=== PATIENT | male | born 1945 | race Caucasian/White ===

== ENCOUNTER 2017-12-11 00:51 | Inpatient (IN) | payer OTHER ==
[~2017-12-11] VITALS: Ht 182.9 cm; Wt 89.0 kg
[~2017-12-11 00:51] MED LIST: FERROUS SULFAT325 M3 PO; IRON PO; LEXAPRO10 M1 PO
--- NOTE | 2017-12-11 15:36 | Operative Report ---
Operative/Inv Procedure Report Surgery Date: 12/11/17 Name of Procedure: Laparoscopic converted to open right hemicolectomy with en bloc resection of locally advanced right colon cancer Pre-Operative Diagnosis: Colon cancer Post-Operative Diagnosis: Same Estimated Blood Loss: less than 50ml Surgeon/Senior Information Security Architect: Shaw MURDOCK,Bull Pabon/Beth MARTIN Anesthesia: general endotracheal tube Specimens: Right colon and associated mesenteric metastases Operative Indication: 72-year-old male with symptomatic anemia is found to have large cecal colon cancer. Preoperative CT scan shows no evidence of distant metastases although there is concern of local regional lymphadenopathy. He presents for resection after cardiac clearance Operative/Procedure Note Note: After consent is brought to the operative laid supine. Gen. anesthesia was obtained and his abdomen was prepped and draped. The skin above the umbilicus was after local anesthesia a curvilinear incision made sharply. We dissected down to the fascia and incised it sharply. Stay sutures were placed and a blunt Agudelo port was placed. No peritoneum was achieved. A 5 mm port was placed in the suprapubic region, a 5 mm port was placed in the left mid abdomen, and a 12 mm dilating port was placed in the epigastric area. The abdomen was explored. We reflected the transverse colon towards the head. There was a large cecal mass with puckering of the wall. There was diffuse infiltration of the ileocecal pedicle with obvious metastatic foci on the peritoneal surface. Proceeded to evacuate the small bowel into the left abdomen. A line of transection along the ileocecal to call was then created with cautery. The dissection was very difficult and the mesentery quite fibrotic and unable to be grasped. Furthermore high on the pedicle the tissues were so fairly fibrotic from what appeared to be a desmoplastic reaction. I could not identify the duodenum either. Given the difficulty with this visualization and dissection I elected to convert to an open operation such that proper oncologic resection could be performed. A midline incision was made in the epigastric region through the 12 mL port sites. The fascia was incised with cautery and Bookwalter retraction system employed. The dissection was still quite difficult due to his significant amount of intraperitoneal fat. Eventually we're able to visualize the area. There was a very large cecal mass and what felt like continuous cancer growth into the mesentery. We took down the white line of Toldt with cautery and mobilized the hepatic flexure. This portion was quite difficult due to the high riding flexure. The duodenum was identified and colonic mesentery dissected free from it. We mobilized it all the way to the origin of the SMA artery. We chose a proximal distal sites of transection. The small bowel and transverse colon were divided with the BEST stapler. The mesentery was taken with LigaSure device. There were 2 pedicles. We took the right colonic branch first as it was much more supple. This was done with 0 silk suture. The ileo colic pedicle was much more difficult. Teased through the fibrotic tissue until we got to what appeared to be the artery and vein. It was then divided between clamps and the specimen passed off the field. The pedicle was suture ligated with 0 silk suture. There was some oozing around the pedicle from the fibrous tissue. It was controlled with direct pressure and FloSeal. Perineal cavity isn't irrigated normal saline. An ileocolonic anastomosis was then created. The bowel was lined up with 3-0 silk sutures and enterotomies performed. Itme-oo-reee anastomosis was then created through the tinea. Common enterotomy was closed with reload of the stapler. 3-0 silk was placed in the crotch of the anastomosis. It was inspected and anastomosis can intact. Omentum was then placed back over the bowel and the peritoneal cavity irrigated. Of note there is no evidence of carcinomatosis or previously unrecognized hepatic metastases. The fascia was closed with 0 Maxon suture. Skin was closed with taisha. Sterile dressings were applied sponge and needle counts are correct. CC: Maggie MURDOCK,Jay Jo; Grady Poe MD, MD,Jay Santos
--- NOTE | 2017-12-11 15:43 | Admission Core Measures ---
Acute Coronary Syndrome (CM) ACS Core Measures Acute Coronary Syndrome Diagnosis No Congestive Heart Failure (NEW) CHF Core Measures Congestive Heart Failure Diagnosis No Cerebrovascular Accident (NEW) CVA Core Measures CVA/TIA Diagnosis No Venous Thromboembolism VTE Core Shaan (View Protocol) VTE Risk Factors Surgery No Mechanical VTE Prophylaxis d/t N/A MechProphylax Ordered No VTE Pharm Prophylaxis d/t NA PharmProphylax ordered Problem List As ranked by this Provider includes Assessment & Plan 1. Malignant neoplasm of cecum HOME MEDS Home Med List Escitalopram Oxalate (Lexapro) 10 MG TABLET 1 TAB PO DAILY MENTAL HEALTH ( Reported) [IRON] (Unknown Strength) (Unknown Dose) PO TID SUPPLEMENT (Reported)
[2017-12-11 17:15] VITALS: BP 120/58
--- NOTE | 2017-12-11 19:43 | PN- General Surgery ---
Subjective Subjective: POC feeling well, some abd soreness, no n/v, [place] clears. no oob yet. +uo via benjamin Objective Vital Signs and I&Os Vital Signs Date Time Temp Pulse Resp B/P B/P Pulse O2 O2 Flow FiO2 Mean Ox Delivery Rate 12/11 1715 95 Nasal 3.0L Cannula Physical Exam: gen- nad card- s1s2 rrr pulm- ctab abd- distended, tympanic, mild ttp throughout, +bs, midline dressing w scant serosang staining ext- calves soft nt, alps on bl Assessment/Plan Assessment/Plan A- POD0 sp lap-to-open r hemicolectomy 2/2 locally advanced colon ca, stable w appropriate postop pain, awaiting bowel fxn return. P- benjamin- dc in am if uo appropriate cont ivf, clear liquid diet am labs home meds prn pain meds titrate o2 off oob, ambulate hepsq start tonight, alps ancef/flag x23hr postop will dw attending Core Measures Venous Thromboembolism VTE Risk Factors Surgery No Mechanical VTE Prophylaxis d/t N/A MechProphylax Ordered No VTE Pharm Prophylaxis d/t NA PharmProphylax ordered
[2017-12-11 20:02] VITALS: BP 13/78
[2017-12-11 21:49] VITALS: BP 130/76
[2017-12-12] VITALS (7 sets, daily range): BP systolic 90–130; BP diastolic 48–76
--- NOTE | 2017-12-12 08:17 | PN- General Surgery ---
See Addendum Subjective Subjective: Pt. complains on not sleeping well, could not specyfy why. has "discomfort", rating 7/10. received one dose of Oxycodone, last dose 9 pm last evening. He has no other complaints. Had clears last night, reports burping. Not passing flatus. Objective Vital Signs and I&Os Vital Signs Date Time Temp Pulse Resp B/P B/P Pulse O2 O2 Flow FiO2 Mean Ox Delivery Rate 12/12 0400 97.5 88 20 128/74 95 12/12 0005 97.6 94 20 126/70 94 12/12 0000 98 Nasal 3.0L Cannula 12/11 2149 97.9 98 18 130/76 95 Nasal 3.0L Cannula 12/11 2001 97.9 101 18 13/78 95 Nasal 3.0L Cannula 12/11 1715 97.4 96 18 120/58 95 Nasal 3.0L Cannula 12/11 1715 95 Nasal 3.0L Cannula Intake & Output 12/12 1600 12/12 0800 12/12 0000 12/11 1600 12/11 0800 12/11 0000 Intake Total 1040 1080 Output Total 800 300 Balance 240 780 Intake, IV 800 600 Intake, Oral 240 480 Number 0 Bowel Movements Output, Urine 800 300 Patient 193 lb Weight Weight Reported by Patient Measurement Method Alert, oriented, appropriate, no distress HEENT unremarkable Lungs clear bilat, decreased at bases. Heart regular Abdomen is softly distended, mild tympany on percussion, appropriately tender. Midline incision with dressing, slight;y stained with old blood. Arndt in place with clear, yellow urine in large amounts, 800 cc over night. Extremities without edema. Assessment/Plan Assessment/Plan 72 y o male with hx of colon Ca/ cecal mass, s/p open R hemicolectomy POD#1 Stable hemodynamics, no fevers. Making large amounts of urine. Abdominal exam as expected, mild distention.No evidence of bowel fxn yet, has some burping. Incision without signs of infection. Abdominal pain/" discomfort " this morning, however he was not medicated since last pm. Plan: d/c Arndt ( I spoke with Dr Squires), decrease IVF rate Await advancing diet till has return of bowel fxn. I explained to him to go slow on liquids if continues with burping. I spoke with nurse, she will administer oral oxycodone now. Will follow on labs, pending for this morning. Cont. chemical DVT propyhylaxis Ambulate in hallway, I discussed with pt. importance of early ambulation. Antibiotic completed. Core Measures Venous Thromboembolism VTE Risk Factors Surgery No Mechanical VTE Prophylaxis d/t N/A MechProphylax Ordered No VTE Pharm Prophylaxis d/t NA PharmProphylax ordered
[2017-12-12 08:29] LABS: ABSOLUTE BASOPHIL COUNT 0 /CUMM (0.0-0.2); ABSOLUTE EOSINOPHIL COUNT 0 /CUMM (0.0-0.7); ABSOLUTE LYMPH COUNT 0.6 /CUMM (1.2-3.4); ABSOLUTE MONOCYTE COUNT 0.8 /CUMM (0.10-0.60); BASOPHIL % 0.1 % (0.0-2.0); EOSINOPHIL % 0 % (0-5); HEMATOCRIT 39.7 % (42-52); MEAN CORPUSCULAR HGB 29.9 PG (27.0-31.0); MEAN CORPUSCULAR HGB CONC 33.2 G/DL (33.0-37.0); MEAN CORPUSCULAR VOLUME 89.9 FL (80.0-94.0); MEAN PLATELET VOLUME 8.1 FL (7.4-10.4); PLATELET COUNT 269 /CUMM (130-400); RBC DISTRIBUTION WIDTH 25.6 % (11.5-14.5); RED BLOOD CELL CT 4.42 /CUMM (4.70-6.10); WHITE BLOOD CELL COUNT 9.4 /CUMM (4.8-10.8)
[2017-12-12 09:28] LABS: GRANULOCYTE % 85.3 % (42.2-75.2)
[2017-12-13 06:48] VITALS: BP 136/72
--- NOTE | 2017-12-13 07:58 | PN- General Surgery ---
See Addendum Subjective Subjective: Overnight, patient had low urine output, recieved 500 cc bolus an urinated 300 ccs. Patient denies any further episodes of nausea or vomiting. Tolerating clears. Reports drinking 3 beers/night. Denies passing flatus or moving his bowels. He reports vicki-incisional pain, which is improved with Morphine. He reports ambulating yesterday and using his incentive spirometry. Offers no other complaints. Objective Vital Signs and I&Os Vital Signs Date Time Temp Pulse Resp B/P B/P Pulse O2 O2 Flow FiO2 Mean Ox Delivery Rate 12/13 0648 97.9 89 20 136/72 91 12/13 0000 94 Nasal 3.0L Cannula 12/12 2148 97.9 88 21 122/76 94 Nasal 3.0L Cannula 12/12 1600 Nasal 3.0L Cannula 12/12 1600 97.6 88 22 120/70 93 Nasal 3.0L Cannula 12/12 1215 90 124/64 12/12 1204 97.5 90 19 90/48 92 Nasal Cannula 12/12 0811 98.0 90 20 130/70 96 Nasal Cannula Intake & Output 12/13 1600 12/13 0800 12/13 0000 12/12 1600 12/12 0800 12/12 0000 Intake Total 1100 257 567 5711 1080 Output Total 300 300 800 300 Balance 800 100 400 240 780 Intake, IV 1100 600 800 600 Intake, Oral 100 100 240 480 Number 0 Bowel Movements Output, 100 Emesis Output, Urine 300 200 800 300 Patient 193 lb Weight Weight Reported by Patient Measurement Method Physical Exam: Gen - resting comfortably in bed awake an alert eating clears with 2L O2 via nc in nad Cardiac - S1S2 noted, RRR Lungs - fair inspiratory effort, CTAB Abd - softly distended, bowel sounds present, midline dressing mildly saturated, incision closed with taisha healing well with no signs of infection, left quotation clerk, moderately tender vicki-incisionaly, no rebound or guarding noted Ext - no edema or calf tenderness Current Medications: Current Medications Sig/Thai Start time Last Medication Dose Route Stop Time Status Admin Acetaminophen 650 MG Q6P PRN 12/11 1730 AC PO Acetaminophen 1,000 MG Q6P PRN 12/11 173 AC IV Dextrose/Sodium 1,000 ML .Q10H 12/11 1730 DC 12/12 Chloride IV 0351 Escitalopram Oxalate 10 MG DAILY 12/12 0900 DC PO Escitalopram Oxalate 10 MG DAILY 12/12 09 AC 12/12 PO 0753 Heparin Sodium 5,000 UNIT Q8 12/11 2199 AC 12/13 (Porcine) SC 041 Morphine Sulfate 2 MG Q2P PRN 12/11 1729 AC 12/13 IV 041 Ondansetron HCl 4 MG Q6P PRN 12/11 1729 AC IV Oxycodone HCl 5 MG Q4 HRS NEEDED PRN 12/11 1729 AC 12/11 PO 2055 Oxycodone HCl 10 MG Q4P PRN 12/11 1729 AC 12/12 PO 193 Potassium Chloride 20 MEQ Q13H 12/12 0830 AC 12/13 Sodium Chloride 1,000 ML IV 0000 Sodium Chloride 500 ML BOLUS ONE 12/13 0015 DC 12/13 IV 12/13 0114 0046 Results Last 48 Hours of Labs: Laboratory Tests 12/13 12/12 0633 0635 Chemistry Sodium (137 - 145 mmol/L) Pending 133 L Potassium (3.5 - 5.1 mmol/L) Pending 4.6 Chloride (98 - 107 mmol/L) Pending 101 Carbon Dioxide (22 - 30 mmol/L) Pending 23 Anion Gap (5 - 16) Pending 9 BUN (9 - 20 mg/dL) Pending 12 Creatinine (0.7 - 1.2 mg/dL) Pending 0.9 Estimated GFR (>60 ml/min) > 60 BUN/Creatinine Ratio (7 - 25 %) Pending 13.3 Magnesium Pending Hematology CBC w Diff NO MAN DIFF REQ WBC (4.8 - 10.8 /CUMM) 9.4 RBC (4.70 - 6.10 /CUMM) 4.42 L Hgb (14.0 - 18.0 G/DL) 13.2 L Hct (42 - 52 %) 39.7 L MCV (80.0 - 94.0 FL) 89.9 MCH (27.0 - 31.0 PG) 29.9 MCHC (33.0 - 37.0 G/DL) 33.2 RDW (11.5 - 14.5 %) 25.6 H Plt Count (130 - 400 /CUMM) 269 MPV (7.4 - 10.4 FL) 8.1 Gran % (42.2 - 75.2 %) 85.3 H Lymphocytes % (20.5 - 51.1 %) 6.3 L Monocytes % (1.7 - 9.3 %) 8.3 Eosinophils % (0 - 5 %) 0 Basophils % (0.0 - 2.0 %) 0.1 Absolute Granulocytes (1.4 - 6.5 /CUMM) 8.0 H Absolute Lymphocytes (1.2 - 3.4 /CUMM) 0.6 L Absolute Monocytes (0.10 - 0.60 /CUMM) 0.8 H Absolute Eosinophils (0.0 - 0.7 /CUMM) 0 Absolute Basophils (0.0 - 0.2 /CUMM) 0 Assessment/Plan Assessment/Plan 72 M who is POD 2 s/p lap converted to open R hemicolectomy secondary to colon ca, tolerating clears, awaiting return of bowel function Await advancing diet till has return of bowel function Cont pain regimen Home med on board DVT ppx on board Wean O2 CIWA Follow up chirag valdez Encourage ambulation, IS Will d/w Dr. Squires Core Measures Venous Thromboembolism VTE Risk Factors Surgery No Mechanical VTE Prophylaxis d/t N/A MechProphylax Ordered No VTE Pharm Prophylaxis d/t NA PharmProphylax ordered
[2017-12-13 14:00] VITALS: BP 130/64
[2017-12-13 14:13] VITALS: BP 130/64
[2017-12-13 21:25] VITALS: BP 102/70
[2017-12-14 06:00] VITALS: BP 108/78
[2017-12-14 08:14] LABS: ABSOLUTE BASOPHIL COUNT 0 /CUMM (0.0-0.2); ABSOLUTE EOSINOPHIL COUNT 0 /CUMM (0.0-0.7); ABSOLUTE GRANULOCYTE CT 5.7 /CUMM (1.4-6.5); ABSOLUTE LYMPH COUNT 0.7 /CUMM (1.2-3.4); ABSOLUTE MONOCYTE COUNT 0.6 /CUMM (0.10-0.60); BASOPHIL % 0.3 % (0.0-2.0); EOSINOPHIL % 0.3 % (0-5); GRANULOCYTE % 81.3 % (42.2-75.2); MEAN CORPUSCULAR HGB 29.7 PG (27.0-31.0); MEAN CORPUSCULAR HGB CONC 33.4 G/DL (33.0-37.0); MEAN CORPUSCULAR VOLUME 88.8 FL (80.0-94.0); MEAN PLATELET VOLUME 8.3 FL (7.4-10.4); PLATELET COUNT 260 /CUMM (130-400); RBC DISTRIBUTION WIDTH 24.2 % (11.5-14.5); RED BLOOD CELL CT 3.94 /CUMM (4.70-6.10)
--- NOTE | 2017-12-14 09:19 | PN- General Surgery ---
See Addendum Subjective Subjective: Patient reports abdominal soreness is uncontrolled with oxycodone, states he it upsets his stomach. He does not have much of an appetite today and barely touched his clears this morning. He denies passing flatus or moving his bowels and states he ambulated in the shepard twice today with the RW. Objective Vital Signs and I&Os Vital Signs Date Time Temp Pulse Resp B/P B/P Pulse O2 O2 Flow FiO2 Mean Ox Delivery Rate 12/14 0600 98.1 88 22 108/78 90 Nasal 2.0L Cannula 12/14 0000 Nasal 2.0L Cannula 12/13 2125 98.5 91 20 102/70 90 12/13 1600 94 Nasal 2.0L Cannula 12/13 1413 98.2 89 20 130/64 93 Nasal Cannula 12/13 1400 90 18 130/64 Intake & Output 12/14 1600 12/14 0800 12/14 0000 12/13 1600 12/13 0800 12/13 0000 Intake Total 1360 1070 1280 1100 100 Output Total 800 400 400 300 Balance 560 670 880 800 100 Intake, IV 1000 536 161 7473 Intake, Oral 360 720 480 100 Output, Urine 800 400 400 300 Patient 192 lb Weight Physical Exam: Gen - resting comfortably in bed awake an alert eating clears with 2L O2 via nc in nad Cardiac - S1S2 noted, RRR Lungs - fair inspiratory effort, faint crackles at left base, upper lung dunn clear Abd - tense and moderately distended, tympanic, faint bs present, midline incision closed with taisha healing well with no signs of infection, tender vicki-incisionaly, less than yesterday, no signs of peritonitis Ext - no edema or calf tenderness Current Medications: Current Medications Sig/Thai Start time Last Medication Dose Route Stop Time Status Admin Acetaminophen 650 MG Q6P PRN 12/11 1730 AC 12/14 PO 0858 Acetaminophen 1,000 MG Q6P PRN 12/11 1730 AC IV Dextrose/Sodium 1,000 ML Q8H 12/13 2030 AC 12/14 Chloride IV 0453 Dextrose/Sodium 1,000 ML Q10H 12/13 0915 DC 12/13 Chloride IV 0928 Escitalopram Oxalate 10 MG DAILY 12/12 0900 AC 12/14 PO 0851 Heparin Sodium 5,000 UNIT Q8 12/11 2200 AC 12/14 (Porcine) SC 0453 Lorazepam 0 Q1P PRN 12/13 0815 AC IV Morphine Sulfate 2 MG Q2P PRN 12/11 1730 AC 12/14 IV 0453 Ondansetron HCl 4 MG Q6P PRN 12/11 1730 AC IV Oxycodone HCl 5 MG Q4 HRS NEEDED PRN 12/11 1730 AC 12/11 PO 2056 Oxycodone HCl 10 MG Q4P PRN 12/11 173 AC 12/14 PO 0102 Patient Medication 1 ED ONE ONE 12/13 1730 TX Teaching ED 12/13 1731 Results Last 48 Hours of Labs: Laboratory Tests 12/14 12/13 12/13 0644 0924 0633 Chemistry Sodium (137 - 145 mmol/L) Pending 135 L Potassium (3.5 - 5.1 mmol/L) Pending 4.8 Chloride (98 - 107 mmol/L) Pending 103 Carbon Dioxide (22 - 30 mmol/L) Pending 23 Anion Gap (5 - 16) Pending 9 BUN (9 - 20 mg/dL) Pending 18 19 Creatinine (0.7 - 1.2 mg/dL) Pending 1.5 H 1.5 H Estimated GFR (>60 ml/min) 46 L 46 L BUN/Creatinine Ratio (7 - 25 %) Pending 12.0 12.7 Magnesium (1.6 - 2.3 mg/dL) 1.7 Hematology CBC w Diff Pending WBC Pending RBC Pending Hgb Pending Hct Pending MCV Pending MCH Pending MCHC Pending RDW Pending Plt Count Pending MPV Pending Assessment/Plan Assessment/Plan 72 M who is POD 3 s/p lap converted to open R hemicolectomy secondary to colon ca with decreased appetite, inadequate pain control, JENNYFER resolved, awaiting return of bowel function Keep NPO on IVF Pain regimen, add IV Tylenol Multiview axr Home med on board DVT ppx - hsq Wean O2, encourage IS CIWA Encourage ambulation D/w Dr. Squires Core Measures Venous Thromboembolism VTE Risk Factors Surgery No Mechanical VTE Prophylaxis d/t N/A MechProphylax Ordered No VTE Pharm Prophylaxis d/t NA PharmProphylax ordered
--- NOTE | 2017-12-14 11:50 | RADIOLOGY REPORT ---
EXAMINATION: XR ABDOMEN MULTIPLE VIEWS CLINICAL INDICATION: History of colon carcinoma status post right hemicolectomy. Evaluate for ileus or small bowel obstruction. COMPARISON: CT abdomen and pelvis 11/13/2017. TECHNIQUE: 2 views of the abdomen. FINDINGS: The stomach and proximal small bowel is distended with gas. There is a paucity of gas within the colon. Findings may represent a manifestation of small bowel obstruction or ileus. Grossly no free intraperitoneal air. No acute osseous finding. IMPRESSION: The stomach and proximal small bowel is diffusely distended with gas. Findings may represent a manifestation of ileus or obstruction.
[2017-12-14 15:18] VITALS: BP 115/63
[2017-12-14 22:29] VITALS: BP 110/54
--- NOTE | 2017-12-15 00:53 | RADIOLOGY REPORT ---
EXAMINATION: XR PORTABLE CHEST CLINICAL INFORMATION: Ileus, confirm NG tube placement COMPARISON: Abdominal radiograph 12/14/2017 TECHNIQUE: Portable frontal view of the chest was obtained. FINDINGS: Nasogastric tube courses into the stomach. The lungs are hypoinflated, which limits evaluation. A component of atelectasis is suspected at the lung bases. No evidence of pneumothorax. Trace pleural effusions are difficult to exclude in the setting of low lung volumes. No overt pulmonary edema. Cardiac size appears grossly within normal limits. There is atherosclerotic calcification along the aorta. No acute osseous findings are seen. There are redemonstrated gaseous distended loops of bowel in the upper abdomen. IMPRESSION: Nasogastric tube courses into the stomach. Low lung volumes with suspected bibasilar atelectasis.
[2017-12-15 06:07] VITALS: BP 140/60
--- NOTE | 2017-12-15 06:49 | PN- General Surgery ---
Subjective Subjective: Patient seen and evaluated. Overnight he became nauseous and vomited. Therefor, NGT was placed and had immediate return of 2,500 mL dark brown liquid. After this patient reports feeling better and states his stomach is less distended. Reports small amount of flatus yesterday, however denies any since then. No BM. He is ambulating with some expected soreness and with RW. Voiding without difficulty. Otherwise, denies cp, sob, n/v/d now, f/c/s. Objective Vital Signs and I&Os Vital Signs Date Time Temp Pulse Resp B/P B/P Pulse O2 O2 Flow FiO2 Mean Ox Delivery Rate 12/15 0607 99.1 100 23 140/60 93 12/15 0000 Nasal 3.0L Cannula 12/14 2229 98.7 92 20 110/54 90 Nasal 2.0L Cannula 12/14 1518 97.6 94 18 115/63 98 Nasal 2.0L Cannula 12/14 0800 Nasal 2.0L Cannula Intake & Output 12/15 0800 12/15 0000 12/14 1600 12/14 0800 12/14 0000 12/13 1600 Intake Total 5643 147 0257 1360 1070 1280 Output Total 2900 500 800 400 400 Balance -1900 -5 1900 560 670 880 Intake, IV 3342 522 7230 1000 350 800 Intake, Oral 120 900 360 720 480 Number 0 Bowel Movements Output, 2500 Gastric Drainage Output, Urine 400 500 800 400 400 Patient 192 lb Weight Physical Exam: Gen - laying in bed with head elivated to 30, answering qustions, 2L 02 via NC, NAD Cardiac - S1S2 noted, RRR Lungs - fair inspiratory effort, faint crackles at left base, upper lung dunn clear Abd - moderately distended and tympanic, occasional bs presents, midline incision is well approximated with taisha with no signs of drainage, mild vicki- incisional tenderness, abdomen is tense Ext: no edema, no calf tenderness Current Medications: Current Medications Sig/Thai Start time Last Medication Dose Route Stop Time Status Admin Acetaminophen 650 MG .STK-MED ONE 12/14 0857 DC PO 12/14 08 Acetaminophen 650 MG Q6P PRN 12/11 173 DC 12/14 PO 08 Acetaminophen 1,000 MG Q6P PRN 12/11 173 AC 12/14 IV 203 Dextrose/Sodium 1,000 ML Q8H 12/13 2030 AC 12/15 Chloride IV 0022 Escitalopram Oxalate 10 MG DAILY 12/12 0900 AC 12/14 PO 0851 Heparin Sodium 5,000 UNIT Q8 12/11 2200 AC 12/15 (Porcine) SC 0553 Lorazepam 0 Q1P PRN 12/13 0815 AC 12/15 IV 0021 Morphine Sulfate 2 MG Q2P PRN 12/14 1345 AC 12/14 IV 2356 Morphine Sulfate 2 MG Q2P PRN 12/11 1730 DC 12/14 IV 1303 Ondansetron HCl 4 MG Q6P PRN 12/11 1730 AC 12/14 IV 2237 Oxycodone HCl 5 MG Q4 HRS NEEDED PRN 12/11 1730 DC 12/11 PO 2056 Oxycodone HCl 10 MG Q4P PRN 12/11 1730 DC 12/14 PO 0102 Phenol 2 SPRAY Q2P PRN 12/14 2345 AC EXT Promethazine HCl 12.5 MG ONCE ONE 12/14 2345 DC 12/15 IV 12/14 2346 0003 Results Last 48 Hours of Labs: Laboratory Tests 12/15 12/14 12/13 0650 0644 0924 Chemistry Sodium (137 - 145 mmol/L) Pending 136 L Potassium (3.5 - 5.1 mmol/L) Pending 3.9 Chloride (98 - 107 mmol/L) Pending 104 Carbon Dioxide (22 - 30 mmol/L) Pending 22 Anion Gap (5 - 16) Pending 10 BUN (9 - 20 mg/dL) Pending 13 18 Creatinine (0.7 - 1.2 mg/dL) Pending 1.1 1.5 H Estimated GFR (>60 ml/min) > 60 46 L BUN/Creatinine Ratio (7 - 25 %) Pending 11.8 12.0 Hematology CBC w Diff Pending NO MAN DIFF REQ WBC (4.8 - 10.8 /CUMM) Pending 7.0 RBC (4.70 - 6.10 /CUMM) Pending 3.94 L Hgb (14.0 - 18.0 G/DL) Pending 11.7 L Hct (42 - 52 %) Pending 35.0 L MCV (80.0 - 94.0 FL) Pending 88.8 MCH (27.0 - 31.0 PG) Pending 29.7 MCHC (33.0 - 37.0 G/DL) Pending 33.4 RDW (11.5 - 14.5 %) Pending 24.2 H Plt Count (130 - 400 /CUMM) Pending 260 MPV (7.4 - 10.4 FL) Pending 8.3 Gran % (42.2 - 75.2 %) 81.3 H Lymphocytes % (20.5 - 51.1 %) 9.4 L Monocytes % (1.7 - 9.3 %) 8.7 Eosinophils % (0 - 5 %) 0.3 Basophils % (0.0 - 2.0 %) 0.3 Absolute Granulocytes (1.4 - 6.5 /CUMM) 5.7 Absolute Lymphocytes (1.2 - 3.4 /CUMM) 0.7 L Absolute Monocytes (0.10 - 0.60 /CUMM) 0.6 Absolute Eosinophils (0.0 - 0.7 /CUMM) 0 Absolute Basophils (0.0 - 0.2 /CUMM) 0 Assessment/Plan Assessment/Plan This is a 72 y/o M w/ PMHx of colon ca who is now POD#4 s/p Lap converted to open R hemicolectomy secondary to colon ca. GI: #POD4 Lap converted to open R hemicolectomy #Colon CA - 2,500 mL NGT output overnight -> continue LCWS - monitor and record output - NPO - Abdominal xray from yesterday shows dilated loops of bowel and is likely post op ileus - Zofran PRN CV: - Vitals stable - Monitor vitals per protocol Pulm: - Continuie agressive pulmonary toilet - RT ordered Neuro: - Continue current pain regimen; --- Morphine 2 mg IV q2hr PRN abdominal pain --- IV Tylenol Renal/: - JENNYFER resolved with BUN/CR 13/1.1 - Good UOP w/ 400 mL overnight - F/U morning chemistry - IVFs w/ d5-NS @ 125 mL/ hr ID: - Not on abx - WBC 7 yesterday - Monitor for fevers Heme: - H&H stable yesterday at 11.7/35 - F/U morning cbc - Continue sc heparin Endo: - No active issues Ortho: - PT ordered - Encourage ambulation Psych: - On lexapro, may be given down NG tube with clamping Dispo: - Continue as inpatient. Awaiting return of bowel function and advancment of diet Core Measures Venous Thromboembolism VTE Risk Factors Surgery No Mechanical VTE Prophylaxis d/t N/A MechProphylax Ordered No VTE Pharm Prophylaxis d/t NA PharmProphylax ordered
[2017-12-15 08:35] LABS: ABSOLUTE BASOPHIL COUNT 0 /CUMM (0.0-0.2); ABSOLUTE EOSINOPHIL COUNT 0 /CUMM (0.0-0.7); ABSOLUTE GRANULOCYTE CT 1.2 /CUMM (1.4-6.5); ABSOLUTE LYMPH COUNT 0.2 /CUMM (1.2-3.4); ABSOLUTE MONOCYTE COUNT 0.4 /CUMM (0.10-0.60); BASOPHIL % 0.2 % (0.0-2.0); EOSINOPHIL % 2.6 % (0-5); GRANULOCYTE % 65.7 % (42.2-75.2); HEMATOCRIT 34.9 % (42-52); MEAN CORPUSCULAR HGB 29.8 PG (27.0-31.0); MEAN CORPUSCULAR HGB CONC 33.4 G/DL (33.0-37.0); MEAN CORPUSCULAR VOLUME 89.3 FL (80.0-94.0); MEAN PLATELET VOLUME 8.4 FL (7.4-10.4); PLATELET COUNT 255 /CUMM (130-400)
[2017-12-15 09:23] LABS: WHITE BLOOD CELL COUNT 1.8 /CUMM (4.8-10.8)
[2017-12-15 15:41] VITALS: BP 144/84
[2017-12-15 21:27] VITALS: BP 140/84
[2017-12-16 06:31] VITALS: BP 132/78
--- NOTE | 2017-12-16 07:47 | PN- General Surgery ---
See Addendum Subjective Subjective: Awake, alert Not feeling well but nothing specific. Pain is controlled without much narcotic. Can't sleep and frustrated about his progress. Still feels bloated, no flatus or bm Denies nausea OOB to chair yesterday, didn't ambulate yesterday due to NGT and nausea Objective Vital Signs and I&Os Vital Signs Date Time Temp Pulse Resp B/P B/P Pulse O2 O2 Flow FiO2 Mean Ox Delivery Rate 12/16 630 97.8 85 20 132/78 91 12/16 0000 93 Nasal 2.0L Cannula 12/157 98.6 100 20 140/84 93 Nasal 3.0L Cannula 12/15 1600 Nasal 3.0L Cannula 12/15 1541 98.4 102 20 144/84 93 Nasal Cannula 12/15 0800 Nasal 3.0L Cannula Intake & Output 12/16 0800 12/16 0000 12/15 1600 12/15 0800 12/15 0000 12/14 1600 Intake Total 8147 962 5996 495 1900 Output Total 1300 2300 1450 2900 500 Balance -270 -1865 -1450 -1900 -5 1900 Intake, IV 6895 072 3577 375 1000 Intake, Oral 30 60 120 900 Intake, Other 0 Number 0 0 0 Bowel Movements Output, 1300 1800 1150 2500 Gastric Drainage Output, Urine 500 300 400 500 Physical Exam: vss, afebrile High output from NGT - 1300 cc overnight, dark brown/red thin liquid Good urine output General: alert and oriented times three Chest: clear anteriorly bilaterally, RRR Abd: distended, nontender even to deep palpation, no bowel sounds appreciated Ext: warm, no edema Wd: looks good, taisha intact, no drainage or erythema Assessment/Plan Assessment/Plan 72yo male s/p lap to open right hemicolectomy pod 5 with post op ileus Await bowel function I/O negative - watch urine output, increase IVF if needed follow up labs - pending continue ngt/ivf protonix IV for ppx hep sc for ppx pain management Core Measures Venous Thromboembolism VTE Risk Factors Surgery No Mechanical VTE Prophylaxis d/t N/A MechProphylax Ordered No VTE Pharm Prophylaxis d/t NA PharmProphylax ordered
[2017-12-16 08:00] VITALS: BP 132/78
[2017-12-16 08:48] LABS: ABSOLUTE BASOPHIL COUNT 0 /CUMM (0.0-0.2); ABSOLUTE EOSINOPHIL COUNT 0.1 /CUMM (0.0-0.7); ABSOLUTE LYMPH COUNT 0.7 /CUMM (1.2-3.4); ABSOLUTE MONOCYTE COUNT 0.6 /CUMM (0.10-0.60); BASOPHIL % 0.2 % (0.0-2.0); EOSINOPHIL % 3.6 % (0-5); GRANULOCYTE % 58.9 % (42.2-75.2); HEMATOCRIT 34.8 % (42-52); MEAN CORPUSCULAR HGB 29.4 PG (27.0-31.0); MEAN CORPUSCULAR HGB CONC 32.5 G/DL (33.0-37.0); MEAN CORPUSCULAR VOLUME 90.5 FL (80.0-94.0); MEAN PLATELET VOLUME 8.1 FL (7.4-10.4); PLATELET COUNT 267 /CUMM (130-400); RBC DISTRIBUTION WIDTH 23.9 % (11.5-14.5); RED BLOOD CELL CT 3.85 /CUMM (4.70-6.10)
[2017-12-16 09:04] LABS: WHITE BLOOD CELL COUNT 3.4 /CUMM (4.8-10.8)
[2017-12-16 14:50] VITALS: BP 124/72
[2017-12-16 16:00] VITALS: BP 124/72
[2017-12-16 21:09] VITALS: BP 124/82
[2017-12-17 07:01] VITALS: BP 118/76
--- NOTE | 2017-12-17 07:46 | PN- General Surgery ---
Subjective Subjective: Reports some flatus. No bm yet, but feels like hes holding back at times. He fears having an accident in bed. He is able to get out of bed to commode with assistance. Not ambulating much. Denies dizziness. No shortness of breath. No chest pains. Objective Vital Signs and I&Os Vital Signs Date Time Temp Pulse Resp B/P B/P Pulse O2 O2 Flow FiO2 Mean Ox Delivery Rate 12/17 0701 98.0 76 18 118/76 91 12/17 0000 Nasal 5.0L Cannula 12/16 2109 97.6 84 18 124/82 91 Nasal 5.0L Cannula 12/16 1600 97.2 82 20 124/72 12/16 1600 90 Nasal 3.0L Cannula 12/16 1450 97.2 82 20 124/72 90 Nasal 2.0L Cannula 12/16 0800 97.8 85 20 132/78 12/16 0800 91 Nasal 3.0L Cannula Intake & Output 12/17 0800 12/17 0000 12/16 1600 12/16 0800 12/16 0000 12/15 1600 Intake Total 1000 1000 1030 1030 435 Output Total 1400 2030 700 1300 2300 1450 Balance -400 -1030 330 -270 -1865 -1450 Intake, IV 1000 1000 1000 1000 375 Intake, Oral 30 30 60 Intake, Other 0 Number 0 0 Bowel Movements Output, 1100 5203 058 8805 1800 1150 Gastric Drainage Output, Urine 300 250 300 500 300 Physical Exam: General - alert & oriented x 3. comfortable. no acute distress Chest - clear bilaterally. no w/r/r Cardiac - s1s2. reg. Abdomen - distended. midline incision well approximated with taisha. no erythema or exudates. expected vicki-incisional tenderness. ng tube drained >1 liter bilious fluid overnight. Extremities - warm bilaterally. no c/c/e. calves soft and nontender b/l. athrombics in place. Current Medications: Current Medications Sig/Thai Start time Last Medication Dose Route Stop Time Status Admin Acetaminophen 1,000 MG .STK-MED ONE 12/16 1521 DC IV 12/16 1522 Acetaminophen 1,000 MG Q6P PRN 12/11 1730 AC 12/16 IV 2131 Dextrose/Sodium 1,000 ML Q8H 12/13 2030 AC 12/17 Chloride IV 0511 Escitalopram Oxalate 10 MG DAILY 12/12 0900 AC 12/16 PO 0759 Heparin Sodium 5,000 UNIT Q8 12/11 2200 AC 12/17 (Porcine) SC 0510 Lorazepam 0 Q1P PRN 12/13 0815 AC 12/15 IV 0021 Melatonin 5 MG AT BEDTIME PRN 12/15 2045 AC 12/15 PO 2139 Morphine Sulfate 2 MG Q2P PRN 12/14 1345 AC 12/16 IV 0233 Ondansetron HCl 4 MG Q6P PRN 12/11 1730 AC 12/15 IV 0728 Pantoprazole Sodium 40 MG DAILY 12/16 0900 AC 12/16 IV 0803 Patient Medication 1 ED ONE ONE 12/16 1715 DC Teaching ED 12/16 1716 Phenol 2 SPRAY Q2P PRN 12/14 2345 AC EXT Results Last 48 Hours of Labs: Laboratory Tests 12/17 12/17 12/16 0700 0700 0747 Chemistry Sodium (137 - 145 mmol/L) Pending 145 Potassium (3.5 - 5.1 mmol/L) Pending 3.3 L Chloride (98 - 107 mmol/L) Pending 101 Carbon Dioxide (22 - 30 mmol/L) Pending 37 H Anion Gap (5 - 16) Pending 7 BUN (9 - 20 mg/dL) Pending 12 Creatinine (0.7 - 1.2 mg/dL) Pending 0.9 Estimated GFR (>60 ml/min) > 60 BUN/Creatinine Ratio (7 - 25 %) Pending 13.3 Magnesium Pending Hematology CBC w Diff MAN DIFF ORDERED WBC (4.8 - 10.8 /CUMM) 3.4 L RBC (4.70 - 6.10 /CUMM) 3.85 L Hgb (14.0 - 18.0 G/DL) 11.3 L Hct (42 - 52 %) 34.8 L MCV (80.0 - 94.0 FL) 90.5 MCH (27.0 - 31.0 PG) 29.4 MCHC (33.0 - 37.0 G/DL) 32.5 L RDW (11.5 - 14.5 %) 23.9 H Plt Count (130 - 400 /CUMM) 267 MPV (7.4 - 10.4 FL) 8.1 Gran % (42.2 - 75.2 %) 58.9 Lymphocytes % (20.5 - 51.1 %) 19.3 L Monocytes % (1.7 - 9.3 %) 18.0 H Eosinophils % (0 - 5 %) 3.6 Basophils % (0.0 - 2.0 %) 0.2 Absolute Granulocytes (1.4 - 6.5 /CUMM) 2.0 Segmented Neutrophils (42.2 - 75.2 %) 48 Band Neutrophils (0.0 - 5.0 %) 12 H Absolute Lymphocytes (1.2 - 3.4 /CUMM) 0.7 L Lymphocytes (20.5 - 51.1 %) 14 L Monocytes (1.7 - 9.3 %) 21 H Absolute Monocytes (0.10 - 0.60 /CUMM) 0.6 Eosinophils (0 - 5.0 %) 4 Absolute Eosinophils (0.0 - 0.7 /CUMM) 0.1 Basophils (0.0 - 2.0 %) 1 Absolute Basophils (0.0 - 0.2 /CUMM) 0 Platelet Estimate (ADEQUATE) VERIFIED BY SMEAR Polychromasia 1+ Anisocytosis 1+ Assessment/Plan Assessment/Plan This 72 year old male with hx anemia, anxiety/depression is POD#6 s/p laparoscopic converted to open right hemicolectomy with en bloc resection of locally advanced right colon cancer, post-op ileus and high ng tube output overnight (>1 liter) reports passing flatus. no bm yet, but feels like its coming f/u lytes PT to re-assess and assist with ambulation continue ngt/ivf protonix - gi ppx hep sc - ppx will d/w (covering ) Core Measures Venous Thromboembolism VTE Risk Factors Surgery No Mechanical VTE Prophylaxis d/t N/A MechProphylax Ordered No VTE Pharm Prophylaxis d/t NA PharmProphylax ordered
[2017-12-17 14:46] VITALS: BP 122/72
--- NOTE | 2017-12-17 16:39 | RADIOLOGY REPORT ---
EXAMINATION: XR ABDOMEN MULTIPLE VIEWS CLINICAL INDICATION: Resolving postop ileus. Return of bowel function and setting of high NG tube output. Compared to previous film. Check position of NG tube. COMPARISON: Abdomen film dated 12/14/2017. CT scan of the abdomen and pelvis dated 11/13/2017. TECHNIQUE: Supine and upright views of the abdomen performed on 3 images. FINDINGS: Enteric tube is seen with tip in the gastric fundus region and side port at the GE junction. Abnormal gaseous distention of small bowel loops is seen with scattered air-fluid levels. There is absence of bowel gas in the rectosigmoid colon. Compared to the prior exam, no significant interval change is seen. Midline abdominal taisha are seen in place. Dense atherosclerotic arterial calcifications of the aorta and branch vessels is seen. IMPRESSION: 1. Enteric tube tip in the gastric fundus with side port at the GE junction. 2. No significant change in abnormal small bowel gaseous distention with multiple air-fluid levels, consistent with small bowel obstruction versus ileus.
[2017-12-17 21:28] VITALS: BP 114/62
[2017-12-18 06:17] VITALS: BP 106/80
--- NOTE | 2017-12-18 08:42 | PN- General Surgery ---
See Addendum Subjective Subjective: Patient denies any abdominal pain, nausea or vomiting. He reports 3 loose BMs yesterday and 1 BM this mornign. He is frusterated that the NGT is still in and has been eating ice chips due to dry mouth. He is ambulating well with PT. He offers no other complaints. Objective Vital Signs and I&Os Vital Signs Date Time Temp Pulse Resp B/P B/P Pulse O2 O2 Flow FiO2 Mean Ox Delivery Rate 12/18 06 97.4 83 20 106/80 90 Nasal 2.0L Cannula 12/18 0000 Nasal 2.0L Cannula 12/18 2127 98.0 91 19 114/62 93 Nasal 2.0L Cannula 12/17 1600 Nasal 2.0L Cannula 12/17 144 97.9 79 18 122/72 91 Nasal Cannula Intake & Output 12/18 1600 12/18 0800 12/18 0000 12/17 1600 12/17 0812/17 0000 Intake Total 1240 494 047 2065 1000 Output Total 400 036 148 7833 2030 Balance 840 -60 -710 -400 -1030 Intake, IV 1000 1000 1000 Intake, Oral 240 240 240 Number 1 1 Bowel Movements Output, 400 493 382 5078 1780 Gastric Drainage Output, Urine 300 250 Physical Exam: Gen - nad HEENT - NGT in place with bilious drainage, 400 cc last shift Cardiac - S1S2 noted Lungs - CTAB ABd - soft, mild distended, incisions closed with taisha healing well with no signs of infection, bs hypoactive, non tender, no rebound or guarding noted Ext - no edema or calf tenderness B/L Current Medications: Current Medications Sig/Thai Start time Last Medication Dose Route Stop Time Status Admin Acetaminophen 1,000 MG Q6P PRN 12/11 1730 AC 12/16 IV 2131 Dextrose/Sodium 1,000 ML Q8H 12/13 2030 DC 12/17 Chloride IV 0511 Escitalopram Oxalate 10 MG DAILY 12/12 0900 AC 12/18 PO 0837 Heparin Sodium 5,000 UNIT Q8 12/11 220 AC 12/17 (Porcine) SC 1450 Lorazepam 0 Q1P PRN 12/13 0815 AC 12/15 IV 0021 Melatonin 5 MG AT BEDTIME PRN 12/15 2045 AC 12/15 PO 2139 Morphine Sulfate 2 MG Q2P PRN 12/14 1345 AC 12/16 IV 0233 Ondansetron HCl 4 MG Q6P PRN 12/11 1730 AC 12/15 IV 0728 Pantoprazole Sodium 40 MG DAILY 12/16 0900 AC 12/18 IV 0837 Patient Medication 1 ED ONE ONE 12/17 1700 DC Teaching ED 12/17 1701 Phenol 2 SPRAY Q2P PRN 12/14 2345 AC EXT Potassium Chloride 20 MEQ Q8H 12/17 1000 AC 12/18 Dextrose/Sodium 1,000 ML IV 0008 Chloride Results Last 48 Hours of Labs: Laboratory Tests 12/18 12/17 12/17 12/17 0650 0749 0700 0700 Chemistry Sodium (137 - 145 mmol/L) Pending 145 Potassium (3.5 - 5.1 mmol/L) Pending 3.5 Chloride (98 - 107 mmol/L) Pending 107 Carbon Dioxide (22 - 30 mmol/L) Pending 26 Anion Gap (5 - 16) Pending 12 BUN (9 - 20 mg/dL) Pending 10 Creatinine (0.7 - 1.2 mg/dL) Pending 0.9 Estimated GFR (>60 ml/min) > 60 BUN/Creatinine Ratio (7 - 25 %) Pending 11.1 Magnesium (1.6 - 2.3 mg/dL) Pending Cancelled 2.0 Hematology CBC w Diff Cancelled WBC Cancelled RBC Cancelled Hgb Cancelled Hct Cancelled MCV Cancelled MCH Cancelled MCHC Cancelled RDW Cancelled Plt Count Cancelled MPV Cancelled Assessment/Plan Assessment/Plan 72 M POD 7 s/p lap converated to open R hemicolectomy with postop ileus, resolved Clamping trial, likely remove NGT today Pain regimen prn Home meds on board GI/DVT ppx on board F/u lytes Encourage IS, ambulation Will d/w Dr. Squires Core Measures Venous Thromboembolism VTE Risk Factors Surgery No Mechanical VTE Prophylaxis d/t N/A MechProphylax Ordered No VTE Pharm Prophylaxis d/t NA PharmProphylax ordered
[2017-12-18 14:47] VITALS: BP 114/72
--- NOTE | 2017-12-18 21:07 | Event Note ---
Event Note Event Note: Called by nurse evaluate patient due to her low blood noted in NG tube approximately 100-150 mL noted initially when suction restarted. Patient had a clamping trial for 12 hours and when suction was placed back on, the blood was noted in the NG tube. The contents were guaiac positive. I came over to evaluate the patient and the remainder of the gastric contents is are thin bilious material without blood. Approximately 500 mL total thus far. No further active bleeding noted. Patient evaluated, he is asymptomatic. He has no nosebleeds or bleeding from his mouth. He has no abdominal tenderness. He has persistent abdominal distention and tympany. He also had another loose bowel movement which was guaiac negative. Likely this was from residual bleeding at the anastomosis site. We will recheck a CBC stat, type and screen, stop heparin subcutaneous. He is on a PPI. We will continue to monitor him however he is currently hemodynamically stable and asymptomatic.
[2017-12-18 21:25] LABS: ABSOLUTE BASOPHIL COUNT 0 /CUMM (0.0-0.2); ABSOLUTE MONOCYTE COUNT 0.8 /CUMM (0.10-0.60)
[2017-12-18 21:29] LABS: ABSOLUTE EOSINOPHIL COUNT 0.2 /CUMM (0.0-0.7); ABSOLUTE GRANULOCYTE CT 4.7 /CUMM (1.4-6.5); ABSOLUTE LYMPH COUNT 1.2 /CUMM (1.2-3.4); BASOPHIL % 0.2 % (0.0-2.0); EOSINOPHIL % 2.3 % (0-5); GRANULOCYTE % 68.8 % (42.2-75.2); HEMATOCRIT 37.1 % (42-52); MEAN CORPUSCULAR HGB 29.4 PG (27.0-31.0); MEAN CORPUSCULAR HGB CONC 32.8 G/DL (33.0-37.0); MEAN CORPUSCULAR VOLUME 89.5 FL (80.0-94.0); MEAN PLATELET VOLUME 7.8 FL (7.4-10.4); PLATELET COUNT 285 /CUMM (130-400); RBC DISTRIBUTION WIDTH 23.5 % (11.5-14.5); RED BLOOD CELL CT 4.14 /CUMM (4.70-6.10)
[2017-12-18 21:30] VITALS: BP 100/66
[2017-12-18 21:30] LABS: WHITE BLOOD CELL COUNT 6.8 /CUMM (4.8-10.8)
--- NOTE | 2017-12-19 03:33 | Event Note ---
Event Note Event Note: rapid response called to pts room. per the nurse he was ambulating, became incontinent, roomate called for help, he was found to be mildly confused, sob, tachypnic. initial vital signs show HR 120, bp 80/palp, o2 sat 70%, increased reps rate and effort. he was placed back on ng suction as he had previously been oob, less than 50cc output. supplemental O2 was provided via 100% NRB and his sat slowly kishor to 95% after several minutes. he remained tachy in the 115 range. pt had no complaints, stated he "felt fine", no sob, no cp, no worsening abd pain. his abdomen was more distended than earlier in the night, it remains tympanic, non tender. no calf pain or swelling. he became more awake and alert after he sats improved. House staff present as well. plan of care was discussed and CTA of chest was ordered stat as well as CT w iv contrast of the abd/pelvis, stat labs. he will be transferred to tele after his CT scan. Dr Squires notified. pts condition currently fair but stable and improving.
[2017-12-19 03:51] LABS: ABSOLUTE BASOPHIL COUNT 0 /CUMM (0.0-0.2); ABSOLUTE EOSINOPHIL COUNT 0.1 /CUMM (0.0-0.7); ABSOLUTE GRANULOCYTE CT 4.5 /CUMM (1.4-6.5); ABSOLUTE LYMPH COUNT 1.1 /CUMM (1.2-3.4); ABSOLUTE MONOCYTE COUNT 0.7 /CUMM (0.10-0.60); BASOPHIL % 0.7 % (0.0-2.0); EOSINOPHIL % 1.4 % (0-5); HEMATOCRIT 36.5 % (42-52); MEAN CORPUSCULAR HGB 29.4 PG (27.0-31.0); MEAN CORPUSCULAR HGB CONC 32.9 G/DL (33.0-37.0); MEAN CORPUSCULAR VOLUME 89.4 FL (80.0-94.0); MEAN PLATELET VOLUME 7.6 FL (7.4-10.4); PLATELET COUNT 230 /CUMM (130-400); RBC DISTRIBUTION WIDTH 23.8 % (11.5-14.5); RED BLOOD CELL CT 4.09 /CUMM (4.70-6.10); WHITE BLOOD CELL COUNT 6.4 /CUMM (4.8-10.8)
--- NOTE | 2017-12-19 04:54 | CT SCAN REPORT ---
EXAMINATION: CT ANGIOGRAM OF THE CHEST; CONTRAST-ENHANCED CT OF THE ABDOMEN AND PELVIS INDICATION: Sudden onset tachycardia with oxygen desaturation, status post right hemicolectomy COMPARISON: CT abdomen/pelvis 11/13/2017 TECHNIQUE: 95 mL Optiray 320 IV contrast was utilized. Multidetector helical imaging was performed through the chest per PE protocol. Coronal, sagittal, and MIP images of the chest were created. In addition, multidetector helical imaging was performed through the abdomen and pelvis. Coronal and sagittal reformatted images were created at the technologist workstation. DLP: 1012.68 mGy-cm FINDINGS: Chest: There are multiple bilateral pulmonary emboli. On the right there is embolus within the distal right main pulmonary artery extending into upper, middle, and lobar and segmental vessels. On the left there is embolus at the distal main pulmonary artery with some extension into upper and lower lobar vessels. Overall clot burden is greater on the right than the left. Mild emphysema is present. There are regions of opacity towards the bilateral lung bases which are favored to reflect atelectasis. Small right pleural effusion is noted. No pneumothorax. The visualized thyroid gland is unremarkable. There are subcentimeter mediastinal lymph nodes within the range of normal variation. Cardiac size is within normal limits; no pericardial effusion. The ascending aorta is dilated to approximately 6.0 cm in diameter. There is atherosclerotic calcification along the aorta. Coronary artery calcifications are present. No axillary lymphadenopathy is present. Abdomen/Pelvis: The liver is homogeneous in attenuation without intrahepatic biliary ductal dilatation. The gallbladder is unremarkable. The spleen, pancreas, and adrenal glands are within normal limits. Bilateral nephrograms are symmetric. No hydronephrosis. No obstructing renal or ureteral calculi are present. There are bilateral renal cysts, measuring up to 5.4 cm in diameter in the right lower pole which contains some thin peripheral calcification. The urinary bladder is unremarkable. The prostate gland is enlarged, measuring 6.1 cm in transverse diameter. Nasogastric tube tip lies at the gastroesophageal junction. Patient is status post right hemicolectomy, with ileocolonic anastomosis in the right abdomen. Much of the small bowel is fluid-filled and mildly prominent in caliber. Mild gas and fluid are seen within the remaining colon. There is diverticulosis in the sigmoid colon. A small volume of free fluid is present. There is a subtle focus of hypoattenuation in the superior mesenteric vein (coronal image 45) which could be artifactual or reflect a small focus of thrombus. There is atherosclerotic calcification along the aorta. Scattered mesenteric and retroperitoneal subcentimeter lymph nodes are present, without significant enlargement by size criteria. There are postsurgical changes along the anterior abdominal wall. There are bilateral fat-containing inguinal hernias. No acute osseous findings. IMPRESSION: 1. Multiple bilateral pulmonary emboli. 2. Dilated ascending aorta to approximately 6.0 cm in diameter. 3. Small right pleural effusion. Bibasilar opacities favoring atelectasis. 4. Nasogastric tube tip at the gastroesophageal junction; advancement recommended. 5. Status post right hemicolectomy. Multiple fluid-filled loops of small bowel, which may reflect postoperative ileus. 6. Questionable focus of thrombus in the superior mesenteric vein, which alternatively could reflect artifact. 7. Enlarged prostate gland. This critical result was discussed with Dr. Mccain on 12/19/2017 4:48 AM, and it was ascertained that the content and urgency of the report was understood at the time of direct communication.
[2017-12-19 05:38] VITALS: BP 110/80
--- NOTE | 2017-12-19 05:47 | PN- General Surgery ---
Subjective Subjective: Comfortable, sleeping in bed, easily arounsable. no cp, no abd pain. on NRB, denies sob or cp. Objective Vital Signs and I&Os Vital Signs Date Time Temp Pulse Resp B/P B/P Pulse O2 O2 Flow FiO2 Mean Ox Delivery Rate 12/19 0436 Non 100% ReBreather 12/19 0000 Nasal 2.0L Cannula 12/18 2130 98.3 92 18 100/66 90 12/18 1600 94 Nasal 2.0L Cannula 12/18 1447 98.1 82 20 114/72 90 Nasal 2.0L Cannula 12/18 0617 97.4 83 20 106/80 90 Nasal 2.0L Cannula Intake & Output 12/19 0800 12/19 0000 12/18 1600 12/18 0800 12/18 0000 12/17 1600 Intake Total 500 1000 1150 1240 240 240 Output Total 300 750 900 400 300 950 Balance 200 250 250 840 -60 -710 Intake, IV 500 6826 339 4639 Intake, Oral 350 240 240 240 Number 1 1 1 Bowel Movements Output, 300 750 400 300 950 Gastric Drainage Output, Urine 900 Physical Exam: Gen - mild tachypnea noted, sleeping, easily awakened. HEENT - NGT in place with bilious drainage, 300 since midnight, no obvious blood. Cardiac - S1S2 noted, mild tachycardia Lungs - CTAB, tachypnea noted, on NRB at 100% ABd - soft, moderately distended, incisions closed with taisha healing well with no signs of infection, minimal bowel sounds, non tender, no rebound or guarding noted Ext - trace BLE edema, no calf tenderness B/L Results Last 48 Hours of Labs: Laboratory Tests 12/19 12/19 0337 0315 Blood Gas pH (7.35 - 7.45 PH) 7.49 H pCO2 (35 - 45 TORR) 29 L pO2 (80 - 100 TORR) 62 L HCO3 (21 - 28 MEQ/L) 22 ABG O2 Sat (Measured) (>96.0 %) 90.0 L P-50 (Temp Corrected) N Carboxyhemoglobin (1.5 - 5.0 %) 0.2 L O2 Concentration % 100% O2 Delivery Method NRB Chemistry Sodium (137 - 145 mmol/L) 140 Potassium (3.5 - 5.1 mmol/L) 3.6 Chloride (98 - 107 mmol/L) 111 H Carbon Dioxide (22 - 30 mmol/L) 21 L Anion Gap (5 - 16) 8 BUN (9 - 20 mg/dL) 9 Creatinine (0.7 - 1.2 mg/dL) 0.8 Estimated GFR (>60 ml/min) > 60 BUN/Creatinine Ratio (7 - 25 %) 11.3 Troponin I (<0.11 ng/ml) 0.04 Wam-[id number] Pept (<125 pg/mL) 1560 H Hematology CBC w Diff NO MAN DIFF REQ WBC (4.8 - 10.8 /CUMM) 6.4 RBC (4.70 - 6.10 /CUMM) 4.09 L Hgb (14.0 - 18.0 G/DL) 12.0 L Hct (42 - 52 %) 36.5 L MCV (80.0 - 94.0 FL) 89.4 MCH (27.0 - 31.0 PG) 29.4 MCHC (33.0 - 37.0 G/DL) 32.9 L RDW (11.5 - 14.5 %) 23.8 H Plt Count (130 - 400 /CUMM) 230 MPV (7.4 - 10.4 FL) 7.6 Gran % (42.2 - 75.2 %) 70.0 Lymphocytes % (20.5 - 51.1 %) 17.5 L Monocytes % (1.7 - 9.3 %) 10.4 H Eosinophils % (0 - 5 %) 1.4 Basophils % (0.0 - 2.0 %) 0.7 Absolute Granulocytes (1.4 - 6.5 /CUMM) 4.5 Absolute Lymphocytes (1.2 - 3.4 /CUMM) 1.1 L Absolute Monocytes (0.10 - 0.60 /CUMM) 0.7 H Absolute Eosinophils (0.0 - 0.7 /CUMM) 0.1 Absolute Basophils (0.0 - 0.2 /CUMM) 0 Miscellaneous Phlebotomy Draw Site RIGHT RADIAL 12/18 12/18 12/17 2110 0650 0749 Chemistry Sodium (137 - 145 mmol/L) 145 Potassium (3.5 - 5.1 mmol/L) 3.7 Chloride (98 - 107 mmol/L) 105 Carbon Dioxide (22 - 30 mmol/L) 27 Anion Gap (5 - 16) 12 BUN (9 - 20 mg/dL) 10 Creatinine (0.7 - 1.2 mg/dL) 0.8 Estimated GFR (>60 ml/min) > 60 BUN/Creatinine Ratio (7 - 25 %) 12.5 Magnesium (1.6 - 2.3 mg/dL) 2.0 Hematology CBC w Diff NO MAN DIFF REQ Cancelled WBC (4.8 - 10.8 /CUMM) 6.8 Cancelled RBC (4.70 - 6.10 /CUMM) 4.14 L Cancelled Hgb (14.0 - 18.0 G/DL) 12.2 L Cancelled Hct (42 - 52 %) 37.1 L Cancelled MCV (80.0 - 94.0 FL) 89.5 Cancelled MCH (27.0 - 31.0 PG) 29.4 Cancelled MCHC (33.0 - 37.0 G/DL) 32.8 L Cancelled RDW (11.5 - 14.5 %) 23.5 H Cancelled Plt Count (130 - 400 /CUMM) 285 Cancelled MPV (7.4 - 10.4 FL) 7.8 Cancelled Gran % (42.2 - 75.2 %) 68.8 Lymphocytes % (20.5 - 51.1 %) 17.4 L Monocytes % (1.7 - 9.3 %) 11.3 H Eosinophils % (0 - 5 %) 2.3 Basophils % (0.0 - 2.0 %) 0.2 Absolute Granulocytes (1.4 - 6.5 /CUMM) 4.7 Absolute Lymphocytes (1.2 - 3.4 /CUMM) 1.2 Absolute Monocytes (0.10 - 0.60 /CUMM) 0.8 H Absolute Eosinophils (0.0 - 0.7 /CUMM) 0.2 Absolute Basophils (0.0 - 0.2 /CUMM) 0 12/17 12/17 0700 0700 Chemistry Sodium (137 - 145 mmol/L) 145 Potassium (3.5 - 5.1 mmol/L) 3.5 Chloride (98 - 107 mmol/L) 107 Carbon Dioxide (22 - 30 mmol/L) 26 Anion Gap (5 - 16) 12 BUN (9 - 20 mg/dL) 10 Creatinine (0.7 - 1.2 mg/dL) 0.9 Estimated GFR (>60 ml/min) > 60 BUN/Creatinine Ratio (7 - 25 %) 11.1 Magnesium (1.6 - 2.3 mg/dL) Cancelled 2.0 Recent Imaging Studies: PATIENT: JOHN FELDMAN PRESENT AGE: 72 PATIENT ACCOUNT NO: [id number] : 45 LOCATION: 1NO ORDERING PHYSICIAN: Herlinda Alvarez MD SERVICE DATE: 12/19/17 EXAM TYPE: CAT - CT ABD & PELVIS W IV CONTRAST; CTA CHEST-PULMONARY EMBOLISM EXAMINATION: CT ANGIOGRAM OF THE CHEST; CONTRAST-ENHANCED CT OF THE ABDOMEN AND PELVIS INDICATION: Sudden onset tachycardia with oxygen desaturation, status post right hemicolectomy COMPARISON: CT abdomen/pelvis 11/13/2017 TECHNIQUE: 95 mL Optiray 320 IV contrast was utilized. Multidetector helical imaging was performed through the chest per PE protocol. Coronal, sagittal, and MIP images of the chest were created. In addition, multidetector helical imaging was performed through the abdomen and pelvis. Coronal and sagittal reformatted images were created at the technologist workstation. DLP: 1012.68 mGy-cm FINDINGS: Chest: There are multiple bilateral pulmonary emboli. On the right there is embolus within the distal right main pulmonary artery extending into upper, middle, and lobar and segmental vessels. On the left there is embolus at the distal main pulmonary artery with some extension into upper and lower lobar vessels. Overall clot burden is greater on the right than the left. Mild emphysema is present. There are regions of opacity towards the bilateral lung bases which are favored to reflect atelectasis. Small right pleural effusion is noted. No pneumothorax. The visualized thyroid gland is unremarkable. There are subcentimeter mediastinal lymph nodes within the range of normal variation. Cardiac size is within normal limits; no pericardial effusion. The ascending aorta is dilated to approximately 6.0 cm in diameter. There is atherosclerotic calcification along the aorta. Coronary artery calcifications are present. No axillary lymphadenopathy is present. Abdomen/Pelvis: The liver is homogeneous in attenuation without intrahepatic biliary ductal dilatation. The gallbladder is unremarkable. The spleen, pancreas, and adrenal glands are within normal limits. Bilateral nephrograms are symmetric. No hydronephrosis. No obstructing renal or ureteral calculi are present. There are bilateral renal cysts, measuring up to 5.4 cm in diameter in the right lower pole which contains some thin peripheral calcification. The urinary bladder is unremarkable. The prostate gland is enlarged, measuring 6.1 cm in transverse diameter. Nasogastric tube tip lies at the gastroesophageal junction. Patient is status post right hemicolectomy, with ileocolonic anastomosis in the right abdomen. Much of the small bowel is fluid-filled and mildly prominent in caliber. Mild gas and fluid are seen within the remaining colon. There is diverticulosis in the sigmoid colon. A small volume of free fluid is present. There is a subtle focus of hypoattenuation in the superior mesenteric vein (coronal image 45) which could be artifactual or reflect a small focus of thrombus. There is atherosclerotic calcification along the aorta. Scattered mesenteric and retroperitoneal subcentimeter lymph nodes are present, without significant enlargement by size criteria. There are postsurgical changes along the anterior abdominal wall. There are bilateral fat-containing inguinal hernias. No acute osseous findings. IMPRESSION: 1. Multiple bilateral pulmonary emboli. 2. Dilated ascending aorta to approximately 6.0 cm in diameter. 3. Small right pleural effusion. Bibasilar opacities favoring atelectasis. 4. Nasogastric tube tip at the gastroesophageal junction; advancement recommended. 5. Status post right hemicolectomy. Multiple fluid-filled loops of small bowel, which may reflect postoperative ileus. 6. Questionable focus of thrombus in the superior mesenteric vein, which alternatively could reflect artifact. 7. Enlarged prostate gland. This critical result was discussed with Dr. Mccain on 12/19/2017 4:48 AM, and it was ascertained that the content and urgency of the report was understood at the time of direct communication. DICTATED BY: Aaron Kraft MD Assessment/Plan Assessment/Plan 72 M POD 8 s/p lap converated to open R hemicolectomy with postop ileus and multiple B PE, hypoxia, tachycardia, tachypnea, in stable condition continue NGT, npo, ivf. NG tube advanced 12cm due to tip at GE junction on CT scan Bilateral PE's: Heparin drip, hospitalist consult cont tele monitoring Cont supplemental O2, ween per respiratory Pain regimen prn Home meds on board GI/DVT ppx on board Encourage IS d/w Dr. Squires Core Measures Venous Thromboembolism VTE Risk Factors Surgery No Mechanical VTE Prophylaxis d/t N/A MechProphylax Ordered No VTE Pharm Prophylaxis d/t NA PharmProphylax ordered
--- NOTE | 2017-12-19 07:17 | Event Note ---
Event Note Event Note: rapid response called to pts room. per the nurse he was ambulating, became incontinent, roomate called for help, he was found to be mildly confused, sob, tachypnic. His initial vital signs show HR 120, bp 80/palp, o2 sat 70%, increased reps rate and effort. he was placed back on ng suction as he had previously been oob, less than 50cc output. supplemental O2 was provided via 100% NRB and his sat slowly kishor to 90% after several minutes. he remained tachy in the 115 range. pt had no complaints, stated he "felt fine", no sob, no cp, no worsening abd pain. no calf pain or swelling. he became more awake and alert after he sats improved. Plan of care was discussed with surgical PA about CTA of chest as well as CT with IV contrast of the abd/pelvis also to follow the status chest x-ray CBC, BEP, troponin ABG and due to the EKG changes the patient will need to be transferred to tele after his CT scan for closer monitoring. . Dr. Mccain on 12/19/2017 4:48 AM received a call from [facility] regarding the results after CAT scan that showed bilateral pulmonary embolism and questionable thrombus in the superior mesenteric vein. Surgical PA was notified about the results and we advised to discuss with Dr. Squires as the patient had recent operationas as the patient will need anticoagulation .
--- NOTE | 2017-12-19 07:30 | Cons- Medical ---
Jazmin MURDOCK,[facility] 12/19/17 0730: General Information and HPI Consulting Request Date of Consult: 12/19/17 Requested By: Shaw MURDOCK,[place] Reason for Consult: Multiple bilateral PE Source of Information: patient, family, old records Exam Limitations: no limitations History of Present Illness: Patient is 72-year-old male with past medical history significant for hypertension not on jc 72-year-old male with past medical history significant for hypertension not on hypertensive medication, nonspecific abnormal EKG changes of ST depression in V4, V5 and V6 status post recent cardiac cath at [facility], locally advanced right colon cancer status post open right hemicolectomy POD#8. No reported history of previous PE or DVT. Patient had rapid response overnight on general medical floor for sudden incontinence with tachycardia up to 120 and hypertension 80/palp, oxygen desat to 70 and was placed on 100% nonrebreather mask with improvement of saturation up to 90%, patient was transferred to telemetry floor for close monitoring. CTA was obtained that showed multiple bilateral pulmonary emboli 1-Embolus within the distal right main pulmonary artery extending into upper, middle, and lobar and segmental vessels. On the left there is embolus at the distal main pulmonary artery with some extension into upper and lower lobar vessels. Overall clot burden is greater on the right than the left. 2-Cardiac size is within normal limits; no pericardial effusion. The ascending aorta is dilated to approximately 6.0 cm in diameter. There is atherosclerotic calcification along the aorta. Coronary artery calcifications are present. 3-There is a subtle focus of hypoattenuation in the superior mesenteric vein ( coronal image 45) which could be artifactual or reflect a small focus of thrombus. There is atherosclerotic calcification along the aorta. Patient was evaluated this morning with attending Dr. Stinson, he is lying comfortably in bed with daughter at bedside, saturation was 91/92% on 100% nonrebreather. Patient denied any chest pain, shortness of breath, lightheadedness blurry vision, palpation,, abdominal pain nausea or vomiting. He reported passing gas, liquid stool, has the NG tube placed with minimal output, overnight there was a report for dark red blood. Vital signs otherwise within normal. Per Sugical PA, nurses reported that patient has been refusing heparin subcutaneous. Problem list #Multiple bilateral pulmonary emboli, hemodynamically stable #Small thrombus versus artifact of the superior mesenteric vein status post open right hemicolectomy postop day 8 #Ascending aorta 6 cm, and no previous history of TAA, Asymptomatic Patient will be transferred to ICU for close monitoring, will obtain a second set of tropes and EKG, stat echocardiogram, stat bilateral lower extremity venous Doppler scan, patient was started on heparin infusion without bolus (less than 2 hours ago), will give bolus of 4000 units, Dr. Serrano oil field pipeline supervisor was notified waiting for recommendation, will obtain vascular consultation for aortic dilatation. Optimal control of blood pressure, maintain systolic below 120, avoid antihypertensive medication at this point as patient maintained borderline blood pressure. Consider starting statin therapy, obtain medical records regarding of aortic aneurysm, close evaluation for any signs of TAA rupture, defer postsurgical management to surgical team. Discussed the plan with the surgical PA. Allergies/Medications Allergies: Coded Allergies: NO KNOWN ALLERGIES (10/25/17) Home Med List: Escitalopram Oxalate (Lexapro) 10 MG TABLET 1 TAB PO DAILY MENTAL HEALTH ( Reported) [IRON] (Unknown Strength) (Unknown Dose) PO TID SUPPLEMENT (Reported) Review of Systems Review of Systems Constitutional: Reports: see HPI. Denies: fever, malaise. EENTM: Denies: blurred vision, eye pain. Cardiovascular: Denies: chest pain, palpitations. Respiratory: Denies: cough, short of breath. GI: Denies: abdominal pain, nausea, vomiting. Genitourinary: Denies: dysuria. 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 Home Smoking Status: Former Smoker Exam & Diagnostic Data Last 24 Hrs of Vital Signs/I&O Vital Signs Date Time Temp Pulse Resp B/P B/P Pulse O2 O2 Flow FiO2 Mean Ox Delivery Rate 12/19 0800 99.0 110 30 112/70 94 Nasal 80% Cannula 12/19 0538 98.9 110 36 110/80 92 Non ReBreather 12/19 0436 Non 100% ReBreather 12/19 0000 Nasal 2.0L Cannula 12/18 2130 98.3 92 18 100/66 90 12/18 1600 94 Nasal 2.0L Cannula 12/18 1447 98.1 82 20 114/72 90 Nasal 2.0L Cannula Intake & Output 12/19 1600 12/19 0800 12/19 0000 Intake Total 656.9 1000 Output Total 300 750 Balance 356.9 250 Intake, IV 656.9 1000 Output, 300 750 Gastric Drainage Patient 80.399 kg Weight Weight Bed scale Measurement Method Physical Exam General Appearance: no apparent distress, alert, awake, comfortable Head: atraumatic, normal appearance Eyes: Bilateral: normal appearance, PERRL, EOMI. Ears, Nose, Throat: normal pharynx, normal ENT inspection, hearing grossly normal Neck: normal inspection, supple Respiratory: normal breath sounds Cardiovascular: regular rate/rhythm Gastrointestinal: normal bowel sounds, soft, non-tender, Surgical scar with stables, central, no erythema, no dischrage Extremities: normal inspection, normal range of motion, no edema, Left leg swelling, no tenderness, homans sign negative Right leg no tenderness, homans sign negative Neurologic/Psych: no motor/sensory deficits, awake, alert, oriented x 3 Last 24 Hrs of Labs/Hakeem: Laboratory Tests 12/20/17 0549: Lactic Acid 0.6 L 12/20/17 0445: Anion Gap 9, Estimated GFR > 60, Glucose 125 H, Calcium 7.2 L, Phosphorus 3.3, Magnesium 1.8, Total Bilirubin 0.7, AST 15 L, ALT 31, Albumin 2.4 L, CBC w Diff NO MAN DIFF REQ, RBC 2.98 L, MCV 90.2, MCH 29.7, MCHC 33.0, RDW 23.7 H, MPV 8.3, Gran % 81.2 H, Lymphocytes % 10.8 L, Monocytes % 7.6, Eosinophils % 0.3, Basophils % 0.1, Absolute Granulocytes 6.8 H, Absolute Lymphocytes 0.9 L, Absolute Monocytes 0.6, Absolute Eosinophils 0, Absolute Basophils 0 12/20/17 0026: Anion Gap 10, Estimated GFR > 60, Glucose 118 H, Calcium 6.6 L, Phosphorus 3.0 , Magnesium 1.8, Total Bilirubin 0.6, AST 13 L, ALT 28, Troponin I 0.10, Pro-B- Natriuretic Pept 2260 H, Albumin 2.2 L, CBC w Diff NO MAN DIFF REQ, RBC 3.20 L, MCV 88.7, MCH 29.9, MCHC 33.7, RDW 24.0 H, MPV 8.0, Gran % 80.2 H, Lymphocytes % 12.9 L, Monocytes % 5.9, Eosinophils % 0.9, Basophils % 0.1, Absolute Granulocytes 6.0, Absolute Lymphocytes 1.0 L, Absolute Monocytes 0.4, Absolute Eosinophils 0.1, Absolute Basophils 0 12/19/17 2143: Troponin I 0.11 *H, APTT 85 H 12/19/17 1600: Troponin I 0.17 *H 12/19/17 1230: APTT 96 H 12/19/17 1000: Sodium Cancelled, Potassium Cancelled, Chloride Cancelled, Carbon Dioxide Cancelled, Anion Gap Cancelled, BUN Cancelled, Creatinine Cancelled, Glucose Cancelled, Calcium Cancelled, Phosphorus Cancelled, Magnesium Cancelled, Total Bilirubin Cancelled, AST Cancelled, ALT Cancelled, Albumin Cancelled 12/19/17 0820: Sodium Cancelled, Potassium Cancelled, Chloride Cancelled, Carbon Dioxide Cancelled, Anion Gap Cancelled, BUN Cancelled, Creatinine Cancelled, Glucose Cancelled, Calcium Cancelled, Phosphorus Cancelled, Magnesium Cancelled, Total Bilirubin Cancelled, AST Cancelled, ALT Cancelled, Albumin Cancelled 12/19/17 0818: Phosphorus Cancelled 12/19/17 0817: Sodium Cancelled, Potassium Cancelled, Chloride Cancelled, Carbon Dioxide Cancelled, Anion Gap Cancelled, BUN Cancelled, Creatinine Cancelled, Glucose Cancelled, Calcium Cancelled, Phosphorus Cancelled, Magnesium Cancelled, Total Bilirubin Cancelled, AST Cancelled, ALT Cancelled, Albumin Cancelled 12/19/17 0815: Anion Gap 11, Estimated GFR > 60, Glucose 130 H, Calcium 8.3 L, Phosphorus 3.5 , Magnesium 1.8, Total Bilirubin 0.6, AST 21, ALT 32, Troponin I 0.26 *H, Albumin 3.1 L, TSH 0.691, APTT 69 H, CBC w Diff NO MAN DIFF REQ, RBC 4.17 L, MCV 89.3, MCH 29.7, MCHC 33.2, RDW 23.6 H, MPV 7.8, Gran % 77.4 H, Lymphocytes % 13.9 L, Monocytes % 7.7, Eosinophils % 0.9, Basophils % 0.1, Absolute Granulocytes 5.8, Absolute Lymphocytes 1.0 L, Absolute Monocytes 0.6, Absolute Eosinophils 0.1, Absolute Basophils 0 Assessment/Plan Assessment/Plan Please see above Problem List: 1. Malignant neoplasm of cecum Consult Acknowledgment - Thank you for your consult request. Milad MURDOCKEarlbrianna 12/19/17 0731: Assessment/Plan Consult Acknowledgment - Thank you for your consult request. Attending MD Review Statement Attending Statement Attending MD Statement: examined this patient, discuss w/resident/PA/HEEL EMERY BUFFER, agreed w/resident/PA/HEEL EMERY BUFFER, discussed with family, reviewed EMR data (avail), discussed with nursing, amended to note Attending Assessment/Plan: I was notified by the surgical PA around 7 AM this morning about this postop patient who developed respiratory distress earlier on this morning. CT scan was done and revealed pulmonary embolism patient had a recent run of nonsustained ventricular tachycardia. Patient seen at the bedside. Daughter was present. He is a 72-year-old gentleman with medical history significant for hypertension but no longer on antihypertensives according to his daughter. Daughter reports that as part of preoperative clearance patient underwent cardiac catheterization. She reports that his oil field pipeline supervisor Dr. Serrano had noted an abnormality on the stress test. Patient denies any previous history of chest pain at rest or with exertion. Denies previous history of shortness of breath at rest or with exertion. He is reported to have had an abnormal EKG at baseline however I do not have any for comparison here. He does have an echocardiogram done earlier this month that shows stage I diastolic dysfunction, normal ejection fraction, pulmonary pressures were unable to be estimated. He was diagnosed with a cecal mass on colonoscopy last month. 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 Patient underwent elective right hemicolectomy on December 11, 2017 which was 8 days ago. The procedure was started laparoscopically but was converted to an open procedure. Postoperatively patient has had a prolonged course of ileus requiring his NG tube remain in place. He has been stable otherwise. Nursing staff reports that on different occasions patient had declined to have his subcu heparin for DVT prophylaxis administered. In the early hours of this morning a rapid response was called to the patient's room. Apparently patient was ambulated and became incontinent and his roommate called for help. Patient was found confused and short of breath. He was found to be tachycardic with heart rate in the 120s. He was also hypotensive BP was reported to be 80 palpable. He was significantly hypoxic saturating 70%. On nonrebreather his saturation improved to 95% after several minutes. He remained tachycardic. He was evaluated by the medical team during the rapid response and a CTA of the chest and CT of the abdomen and pelvis was recommended. Imaging results revealed multiple bilateral pulmonary embolism. Also incidentally noted is a dilated ascending aortic aneurysm 6 cm in diameter. A small right pleural effusion and bibasilar opacities favoring atelectasis. Evidence of postop ileus was noted. There is also noted a questionable focus of thrombus in the superior mesenteric vein this could also be artifact according to the radiologist report. Following this patient was started on intravenous heparin and transferred to the telemetry service for further monitoring. While on the telemetry service patient had a 20 beat run of ventricular tachycardia. His blood pressure remained stable. He continues to maintain saturation above 90% on 100% nonrebreather. At this point I was contacted directly by the surgical PA to evaluate the patient. I found the patient resting comfortably with his daughter present at the bedside. I found him alert and oriented 3 conversant appropriately. He did not appear to be in any respiratory or painful distress. He denied pain or shortness of breath when questioned. He denied any palpitations. He did admit to feeling unwell. Denied any abdominal pain. He reports that he has been passing gas and having loose stools. General appearance: Not in any acute distress. 100% nonrebreather in place. NG tube in place to suction. Currently no output. HEENT: 2 cm x 2 cm lipoma present on the left side of the forehead. Pupils equal and reactive. Anicteric, no pallor. Neck: No jugular venous distention. Heart: S1-S2 regular with no audible murmur. Lungs: Adequate entry bilaterally with no added sounds. Abdomen: Mildly distended, intact midline surgical scar with taisha present. No open areas. No erythema. No discharge. Abdomen is soft and nontender. Bowel sounds were present. Extremities: Left leg is swollen when compared to the right. No pitting edema. Left leg is also more firm when compared to the right. Distal pulses palpable. No cyanosis. No tenderness. Neurologic: No gross focal deficits. Imaging studies as reported above. EKG shows diffuse ST depressions. Sinus tachycardia. EKG is prior to admission are present for review at present. Laboratory data overnight shows no evidence of leukocytosis. Hemoglobin and platelet counts are acceptable. Serum chemistry shows normal electrolyte panel and creatinine level. Troponin 0 0.04. ProBNP is elevated at 1560. Problems: 1. Acute hypoxic respiratory failure secondary to acute pulmonary embolism. 2. Nonsustained ventricular tachycardia. 3. Postop day 8 following open right hemicolectomy for colorectal cancer. 4. Hypotension; now resolved. 5. Abdominal aortic aneurysm. 6 cm in size. 7. SMV thrombus. Plan: -Patient was hypotensive earlier on with blood pressure documented as 80 palpable. This has resolved. He is currently maintaining saturation of 90-92% on the 100% nonrebreather. Given his borderline hemodynamic status would recommend monitoring the patient further in the intensive care unit. -Patient has been initiated on heparin infusion. Would recommend providing patient with a bolus as well. Given his recent surgery would recommend close monitoring for bleeding complications. -Recommend Doppler of the lower extremities as physical exam raises concern for possible left lower extremity deep vein thrombosis. No further intervention for his probable SMV thrombus other than anticoagulation. -His ventricular ectopy was likely brought on by his pulmonary embolism. Recommend checking magnesium level. Check TSH level. We will hold off adding any negative chronotropic agent for now given his recent hypotension. His blood pressure remained stable may consider low-dose beta-cora therapy. Repeat echocardiogram. 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 Serrano has been notified. -Continue n.p.o. status and NG tube management as directed by the surgical service. -Recommend consultation with the vascular surgery service regarding his abdominal aortic aneurysm. -Plan of care has been discussed in detail with the surgical PA, phlebotomist medical lab assistant and nursing staff. I have also explained in clear terms the diagnosis and management to the patient and his daughter at the bedside. They both verbalized understanding. I did answer questions their questions. -The critical care service will be notified of the patient's admission to the intensive care unit. Ongoing care will be as directed by the critical care team.
[2017-12-19 08:00] VITALS: BP 112/70
--- NOTE | 2017-12-19 08:04 | Event Note ---
Event Note Event Note: Mr Horan is a 72 year old man was transferred to the ICU for closer monitoring. Vitals have been stable so far. Await to get a full history and complete the examination. 815 AM: LE US dopplers are being done, and await final read. Upon reviewing the bed side images, it does appear that he might have had DVT b/l lower extremities. Await final read from the radiologist. Reached out to vascular stat for arranging for any intervention. Reached out the Vascular surgeon twice so far, and waiting for a call back. As per the radiologist, he has DVTs bilaterally. Discussed these results with the surgical PA, who spoke to vascular surgeon who was of the opinion that no surgical intervention to be done at this time, since he is already anticoagulated. Administered a full dose of ASA, after discussing with Dr. Serrano, and also the surgical PA.
--- NOTE | 2017-12-19 08:13 | Cons- CRCU ---
Radha MURDOCKNaty 12/19/17 0812: General Information and HPI Consulting Request Date of Consult: 12/19/17 Requested By: Primary Team Reason for Consult: Bilateral Pulmonary emboli 6 cm dilation of Ascending Aorta ?? Superior mesenteric vein thrombosis Source of Information: patient, family Exam Limitations: no limitations History of Present Illness: Mr. 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 Rapid response was called this morning after patient was found to be tachycardic with heart rate in 120s, hypotensive with blood pressure 80/Doppler and O2 sats in the 70s improved to 75% on nonrebreather mask. Chest CTA and CT abdomen and pelvis was done which showed multiple bilateral pulmonary emboli, and also incidentally noted was a dilated ascending aortic aneurysm 6 cm in diameter. A questionable focus of thrombus in the superior mesenteric vein was also noted. Patient was started on IV heparin drip and monitored on secured entrance monitor, was found to have a 20 beat run of V. tach with vitals remained stable. Allergies/Medications Allergies: Coded Allergies: NO KNOWN ALLERGIES (10/25/17) Home Med List: Escitalopram Oxalate (Lexapro) 10 MG TABLET 1 TAB PO DAILY MENTAL HEALTH ( Reported) [IRON] (Unknown Strength) (Unknown Dose) PO TID SUPPLEMENT (Reported) Review of Systems Review of Systems Constitutional: Reports: no symptoms. EENTM: Reports: no symptoms. Cardiovascular: Reports: no symptoms. Respiratory: Reports: no symptoms. GI: Reports: no symptoms. Genitourinary: Reports: no symptoms. Musculoskeletal: Reports: no symptoms. Skin: Reports: no symptoms. Neurological/Psychological: Reports: no symptoms. Hematologic/Endocrine: Reports: no symptoms. Immunologic/Allergic: Reports: no symptoms. 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 Home Smoking Status: Former Smoker ETOH Use: denies use Illicit Drug Use: denies illicit drug use Functional Ability ADLs Independent: dressing, eating, toileting, bathing. Ambulation: independent IADLs Independent: shopping, housework, finances, food prep, telephone, transportation , medication admin. Exam & Diagnostic Data Last 24 Hrs of Vital Signs/I&O Vital Signs Date Time Temp Pulse Resp B/P B/P Pulse O2 O2 Flow FiO2 Mean Ox Delivery Rate 12/20 799 99.0 110 30 112/70 94 Nasal 80% Cannula 12/19 0800 94 Nasal 80% Cannula 12/19 0538 98.9 110 36 110/80 92 Non ReBreather 12/19 0436 Non 100% ReBreather 12/19 0000 Nasal 2.0L Cannula 12/18 2130 98.3 92 18 100/66 90 12/18 1600 94 Nasal 2.0L Cannula 12/18 1447 98.1 82 20 114/72 90 Nasal 2.0L Cannula Intake & Output 12/19 1600 12/19 0800 12/19 0000 Intake Total 656.9 1000 Output Total 300 750 Balance 356.9 250 Intake, IV 656.9 1000 Output, 300 750 Gastric Drainage Patient 177 lb Weight Weight Bed scale Measurement Method Physical Exam General Appearance: no apparent distress, alert, awake Head: atraumatic, normal appearance Cardiovascular: regular rate/rhythm Gastrointestinal: normal bowel sounds, soft, non-tender, Surgiacl Scar from right hemicolectomy Extremities: normal inspection, no edema Cranial Nerves: normal hearing, normal speech, PERRL Last 48 Hrs of Labs/Hakeem: Laboratory Tests 12/19/17 1230: APTT 96 H 12/19/17 1000: Sodium Cancelled, Potassium Cancelled, Chloride Cancelled, Carbon Dioxide Cancelled, Anion Gap Cancelled, BUN Cancelled, Creatinine Cancelled, Glucose Cancelled, Calcium Cancelled, Phosphorus Cancelled, Magnesium Cancelled, Total Bilirubin Cancelled, AST Cancelled, ALT Cancelled, Albumin Cancelled 12/19/17 0820: Sodium Cancelled, Potassium Cancelled, Chloride Cancelled, Carbon Dioxide Cancelled, Anion Gap Cancelled, BUN Cancelled, Creatinine Cancelled, Glucose Cancelled, Calcium Cancelled, Phosphorus Cancelled, Magnesium Cancelled, Total Bilirubin Cancelled, AST Cancelled, ALT Cancelled, Albumin Cancelled 12/19/17 0818: Phosphorus Cancelled 12/19/17 0817: Sodium Cancelled, Potassium Cancelled, Chloride Cancelled, Carbon Dioxide Cancelled, Anion Gap Cancelled, BUN Cancelled, Creatinine Cancelled, Glucose Cancelled, Calcium Cancelled, Phosphorus Cancelled, Magnesium Cancelled, Total Bilirubin Cancelled, AST Cancelled, ALT Cancelled, Albumin Cancelled 12/19/17 0815: Anion Gap 11, Estimated GFR > 60, Glucose 130 H, Calcium 8.3 L, Phosphorus 3.5 , Magnesium 1.8, Total Bilirubin 0.6, AST 21, ALT 32, Troponin I 0.26 *H, Albumin 3.1 L, TSH 0.691, APTT 69 H, CBC w Diff NO MAN DIFF REQ, RBC 4.17 L, MCV 89.3, MCH 29.7, MCHC 33.2, RDW 23.6 H, MPV 7.8, Gran % 77.4 H, Lymphocytes % 13.9 L, Monocytes % 7.7, Eosinophils % 0.9, Basophils % 0.1, Absolute Granulocytes 5.8, Absolute Lymphocytes 1.0 L, Absolute Monocytes 0.6, Absolute Eosinophils 0.1, Absolute Basophils 0 12/19/17 0600: Sodium Cancelled, Potassium Cancelled, Chloride Cancelled, Carbon Dioxide Cancelled, Anion Gap Cancelled, BUN Cancelled, Creatinine Cancelled, BUN/ Creatinine Ratio Cancelled 12/19/17 0337: Anion Gap 8, Estimated GFR > 60, BUN/Creatinine Ratio 11.3, Troponin I 0.04, Pro -B-Natriuretic Pept 1560 H, CBC w Diff NO MAN DIFF REQ, RBC 4.09 L, MCV 89.4, MCH 29.4, MCHC 32.9 L, RDW 23.8 H, MPV 7.6, Gran % 70.0, Lymphocytes % 17.5 L , Monocytes % 10.4 H, Eosinophils % 1.4, Basophils % 0.7, Absolute Granulocytes 4.5, Absolute Lymphocytes 1.1 L, Absolute Monocytes 0.7 H, Absolute Eosinophils 0.1, Absolute Basophils 0 12/19/17 0315: pH 7.49 H, pCO2 29 L, pO2 62 L, HCO3 22, ABG O2 Sat (Measured) 90.0 L, P-50 (Temp Corrected) N, Carboxyhemoglobin 0.2 L, O2 Concentration % 100%, O2 Delivery Method NRB, Phlebotomy Draw Site RIGHT RADIAL 12/18/172109: CBC w Diff NO MAN DIFF REQ, RBC 4.14 L, MCV 89.5, MCH 29.4, MCHC 32.8 L, RDW 23.5 H, MPV 7.8, Gran % 68.8, Lymphocytes % 17.4 L, Monocytes % 11.3 H, Eosinophils % 2.3, Basophils % 0.2, Absolute Granulocytes 4.7, Absolute Lymphocytes 1.2, Absolute Monocytes 0.8 H, Absolute Eosinophils 0.2, Absolute Basophils 0 12/18/17 0650: Anion Gap 12, Estimated GFR > 60, BUN/Creatinine Ratio 12.5, Magnesium 2.0 Assessment/Plan CRCU Impression/Plan: Mr. 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 Rapid response was called this morning after patient was found to be tachycardic with heart rate in 120s, hypotensive with blood pressure 80/Doppler and O2 sats in the 70s improved to 75% on nonrebreather mask and is found to have multiple bilateral pulmonary emboli on CTA. Patient was transferred to ICU for the management of following issues; 1. Acute hypoxic respiratory failure secondary to acute pulmonary embolism. 2. Nonsustained ventricular tachycardia. 3. Postop day 8 following open right hemicolectomy for colorectal cancer. 4. Hypotension; now resolved. 5. Abdominal aortic aneurysm. 6 cm in size. 7. SMV thrombus. Plan Respiratory; 1. Bilateral Pulmonary emboli; Patient had a recent hemicolectomy done for cecal adenocarcinoma, and has been refusing his subcutaneous heparin for DVT prophylaxis per the nurses. Bilateral lower extremity Doppler was done after the patient was transferred to ICU showing bilateral nonocclusive popliteal vein thrombosis. Patient also has baseline abnormal EKG changes but second set of troponin came back elevated to 0.26. Echocardiogram was obtained showing normal ejection fraction with no regional wall motion abnormalities and stage I diastolic dysfunction. Vascular surgery consulted regarding possible ivc filter vs intervention does not recommend any surgical intervention at the time, recommends continuing IV heparin. - Continue IV heparin drip - Vitals every hour - Continue supplemental oxygen as needed keep O2 sats above 90%. - Troponin and EKG until peak - Await cardiology recommendations. Infectious; None Cardiology; 1. Nonsustained V. tach; patient had a 20 beat run of V. tach earlier this morning. White fluids remained stable at the time. Echocardiogram normal. - Monitor electrolytes a and replete accordingly(keep mag > 2,K and phosphorus > 4) - F/U Cardiology recommendations. 2. History of hypertension; not on any antihypertensive medications. - Continue to monitor vitals. 3. ?? Mesenteric vein thrombosis; - Continue IV heparin. - f/u vascular surgery recommendations 4. Ascending Aortic Aneurysm; - f/u Cardiology recommendations Heme; None Metabolic; - Continue to monitor creatinine and electrolytes. Alimentary; 1. Colon cancer status post hemicolectomy; NG tube in place. - Nothing by mouth - Continue gentle IV fluids. Neurology; None DVT Prophylaxis; IV Heparin PAtient is Full Code Problem List: 1. Multiple pulmonary emboli 2. Malignant neoplasm of cecum Consult Acknowledgment - Thank you for your consult request. Aryan Almeida MD 12/19/17 0958: Assessment/Plan CRCU Other Findings/Comments: Impression 72 year old man * multiple bilateral pulmonary emboli (submassive) and DVT * run of Vtach * Stage 3C colon cancer s/p radical right hemicolectomy Plan Respiratory/Heme/CVS -high flow o2, spo2 goal >92% -heparin gtt to goal ptt -vascular surgery consultation regarding possible ivc filter vs intervention, also to comment on questionable SMV thrombus -ECHO -trops/bnp -cardiology consultation -f/u LE dopplers ID -monitor wbc, fevers Metabolic -ins/outs -creatinine/electrolyte monitoring Alimentary -NPO Neuro -no acute issues DVT prophylaxis at all times - remove ALPS for now while pending LE dopplers Heparin gtt Discussed with patient, daughter and surgical team TTS 45 min Consult Acknowledgment - Thank you for your consult request.
[2017-12-19 08:32] LABS: ABSOLUTE BASOPHIL COUNT 0 /CUMM (0.0-0.2); ABSOLUTE EOSINOPHIL COUNT 0.1 /CUMM (0.0-0.7); ABSOLUTE GRANULOCYTE CT 5.8 /CUMM (1.4-6.5); ABSOLUTE MONOCYTE COUNT 0.6 /CUMM (0.10-0.60); BASOPHIL % 0.1 % (0.0-2.0); EOSINOPHIL % 0.9 % (0-5); GRANULOCYTE % 77.4 % (42.2-75.2); HEMATOCRIT 37.2 % (42-52); MEAN CORPUSCULAR HGB 29.7 PG (27.0-31.0); MEAN CORPUSCULAR HGB CONC 33.2 G/DL (33.0-37.0); MEAN CORPUSCULAR VOLUME 89.3 FL (80.0-94.0); MEAN PLATELET VOLUME 7.8 FL (7.4-10.4); PLATELET COUNT 231 /CUMM (130-400); RBC DISTRIBUTION WIDTH 23.6 % (11.5-14.5); RED BLOOD CELL CT 4.17 /CUMM (4.70-6.10); WHITE BLOOD CELL COUNT 7.5 /CUMM (4.8-10.8)
[2017-12-19 08:45] LABS: PTT 69 SEC (25-37)
--- NOTE | 2017-12-19 09:13 | PN- General Surgery ---
Surgical Brief Attending Note Brief Attending Note: Events noted. Patient developed acute onset of dyspnea while ambulating to bathroom. Workup shows acute PE. Duplex u/s pending but prelim see by me at bedside concerning for persistent DVT. Also ?nonocclusive SMV thrombus by CT. In general, no intervention is necessary for SMV thrombus other than anticoagulation which has already been initiated. Otherwise, ileus resolving by CT and continued bowel function. IMP: 1. DVT/PE after major abdominal colon cancer surgery. IV anticoagulation initiated. Vascular surgery consult re: need for IVC filter. 2. Stage 3C colon cancer s/p radical right hemicolectomy. Oncology consult after discharge. 3. Postoperative ileus is resolving. Under normal circumstances would start clear liquid diet. However in light of acute respiratory process, would avoid any risk of aspiration. Consider diet tomorrow pending clinical course.
--- NOTE | 2017-12-19 09:55 | Cons- Cardiology ---
General Information and HPI Consulting Request Date of Consult: 12/19/17 Requested By: Shaw MURDOCK,Bull Pabon Reason for Consult: Pulmonary embolism and dilated ascending aorta in a postoperative patient. Source of Information: patient, old records Exam Limitations: no limitations History of Present Illness: Niranjan Horan is a 71-year-old man who has been generally healthy. He states he had high blood pressure in the past, but has been off medications for a few months and his blood pressure has been maintained in the normal range. He has no history of lipid abnormalities. He is an ex-smoker, having stopped about 5 years ago and smoked 1 pack per day prior to that. His father at age 49 of a heart attack. On his routine physical examination this year lab work showed iron deficiency anemia with a hemoglobin of 10.4 and a hematocrit of 33.4 with microcytic indices. 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 Niranjan did note some shortness of breath on exertion when he first presented with anemia, which is improved currently. He has not had any chest pain, palpitations, orthopnea, PND, ankle edema, dizziness, or syncope. An EKG at Dr. Whitley's office showed some mild ST depression. I evaluated him in the office for preoperative cardiac evaluation. Because of his risk factors I recommended an echocardiogram and a stress test. The echocardiogram done on 11/25/2017 showed normal left ventricular systolic function, some valvular thickening and no aortic stenosis. We are unable to estimate right ventricular systolic pressure. Ascending aorta was measured is upper limits of normal on that study but it was a limited view of the ascending aorta. The stress test showed mildly decreased activity in the basal inferior wall possibly due to diaphragmatic attenuation. Ejection fraction was 41%. However the EKG portion of the stress test was quite abnormal with significant ST depression. Based on this I recommended cardiac catheterization before his surgery. This was expeditiously done on 12/04/2017 and showed normal coronary arteries. Based on this the patient was cleared for his surgery. The patient had his surgery on 12/11/2017, which was a laparoscopic converted to open right hemicolectomy. Subsequently he has been in the hospital recovering. Early this morning he became confused, short of breath and tachypneic. He was sent for a CTA of the chest which showed multiple bilateral pulmonary emboli including within the distal right main pulmonary artery and the distal main left pulmonary artery. He was transferred to intensive care unit on IV heparin. According to the resident the patient apparently had been refusing subcutaneous heparin and Alps treatment on the floor. His EKG was showing ST changes and his initial troponin was normal at 0.04 but a second troponin was positive at 0.26. The CTA of the chest also showed a dilated ascending aorta to approximately 6 cm in diameter. Subsequently his echocardiogram was repeated with attention to the mid ascending aorta and a similar measurement of about 5.9 cm was visualized in the mid ascending aorta. He also has bilateral deep vein thrombosis on ultrasound of his legs. The patient is currently feeling okay. He is not having any chest pain or excessive shortness of breath. He is saturating in the mid 90s on 75% oxygen. Allergies/Medications Allergies: Coded Allergies: NO KNOWN ALLERGIES (10/25/17) Home Med List: Escitalopram Oxalate (Lexapro) 10 MG TABLET 1 TAB PO DAILY MENTAL HEALTH ( Reported) [IRON] (Unknown Strength) (Unknown Dose) PO TID SUPPLEMENT (Reported) Current Medications: Current Medications Sig/Thai Start time Last Medication Dose Route Stop Time Status Admin Acetaminophen 650 MG .STK-MED ONE 12/18 1705 DC PO 12/18 1706 Acetaminophen 1,000 MG Q6P PRN 12/11 1730 AC 12/16 IV 2131 Escitalopram Oxalate 10 MG DAILY 12/12 0900 AC 12/18 PO 0837 Heparin Sodium 4,000 UNIT ONCE ONE 12/19 0745 DC (Porcine) IV 12/19 0746 Heparin Sodium 5,000 UNIT Q8 12/11 2199 DC 12/17 (Porcine) SC 1450 Heparin Sodium/ 25,000 UNIT Q24H 12/19 0545 AC 12/19 Dextrose IV 0559 Dextrose/Water 500 ML Lorazepam 1 MG ONCE ONE 12/18 2200 DC 12/18 IV 12/18 2200 220 Lorazepam 0 Q1P PRN 12/13 0815 AC 12/15 IV 0021 Magnesium Sulfate 1 GM ONCE ONE 12/19 0915 AC Dextrose/Water 100 ML IV 12/19 1314 Melatonin 5 MG AT BEDTIME PRN 12/15 2045 AC 12/15 PO 2139 Morphine Sulfate 2 MG Q2P PRN 12/14 1345 AC 12/16 IV 0233 Ondansetron HCl 4 MG Q6P PRN 12/11 1730 AC 12/15 IV 0728 Pantoprazole Sodium 40 MG DAILY 12/16 0900 AC 12/18 IV 0837 Patient Medication 1 ED ONE ONE 12/18 1100 DC Teaching ED 12/18 1101 Phenol 2 SPRAY Q2P PRN 12/14 2345 AC EXT Potassium Chloride 20 MEQ Q8H 12/17 1000 AC 12/19 Dextrose/Sodium 1,000 ML IV 0047 Chloride Review of Systems Review of Systems: No other complaints at this time. 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 Home Smoking Status: Former Smoker Exam & Diagnostic Data Vital Signs and I&O Vital Signs Date Time Temp Pulse Resp B/P B/P Pulse O2 O2 Flow FiO2 Mean Ox Delivery Rate 12/19 0800 99.0 110 30 112/70 94 Nasal 80% Cannula 12/19 0800 94 Nasal 80% Cannula 12/19 0538 98.9 110 36 110/80 92 Non ReBreather 12/19 0436 Non 100% ReBreather 12/19 0000 Nasal 2.0L Cannula 12/18 2130 98.3 92 18 100/66 90 12/18 1600 94 Nasal 2.0L Cannula 12/18 1447 98.1 82 20 114/72 90 Nasal 2.0L Cannula Intake & Output 12/19 1600 12/19 0800 12/19 0000 12/18 1600 12/18 0800 12/18 0000 Intake Total 656.9 1000 1150 1240 240 Output Total 300 750 900 400 300 Balance 356.9 250 250 840 -60 Intake, IV 656.9 5181 381 2963 Intake, Oral 350 240 240 Number 1 1 Bowel Movements Output, 300 750 400 300 Gastric Drainage Output, Urine 900 Patient 177 lb Weight Weight Bed scale Measurement Method Physical Exam: The patient is in no acute distress lying in bed. HEENT exam is normal Chest is clear to somewhat limited exam Heart regular rhythm, no murmurs Extremities pulses are present, no tenderness. Labs/Hakeem Results: Laboratory Tests 12/19 12/19 12/19 0820 0818 0815 Chemistry Sodium (137 - 145 mmol/L) Cancelled 142 Potassium (3.5 - 5.1 mmol/L) Cancelled 3.8 Chloride (98 - 107 mmol/L) Cancelled 105 Carbon Dioxide (22 - 30 mmol/L) Cancelled 27 Anion Gap (5 - 16) Cancelled 11 BUN (9 - 20 mg/dL) Cancelled 10 Creatinine (0.7 - 1.2 mg/dL) Cancelled 1.0 Estimated GFR (>60 ml/min) > 60 Glucose (65 - 99 mg/dL) Cancelled 130 H Calcium (8.4 - 10.2 mg/dL) Cancelled 8.3 L Phosphorus (2.5 - 4.5 mg/dL) Cancelled Cancelled 3.5 Magnesium (1.6 - 2.3 mg/dL) Cancelled 1.8 Total Bilirubin (0.2 - 1.3 mg/dL) Cancelled 0.6 AST (17 - 59 U/L) Cancelled 21 ALT (21 - 72 U/L) Cancelled 32 Troponin I (<0.11 ng/ml) 0.26 *H Albumin (3.5 - 5.0 g/dL) Cancelled 3.1 L TSH (0.270 - 4.200 uIU/mL) 0.691 Coagulation APTT (25 - 37 SEC) 69 H Hematology CBC w Diff NO MAN DIFF REQ WBC (4.8 - 10.8 /CUMM) 7.5 RBC (4.70 - 6.10 /CUMM) 4.17 L Hgb (14.0 - 18.0 G/DL) 12.4 L Hct (42 - 52 %) 37.2 L MCV (80.0 - 94.0 FL) 89.3 MCH (27.0 - 31.0 PG) 29.7 MCHC (33.0 - 37.0 G/DL) 33.2 RDW (11.5 - 14.5 %) 23.6 H Plt Count (130 - 400 /CUMM) 231 MPV (7.4 - 10.4 FL) 7.8 Gran % (42.2 - 75.2 %) 77.4 H Lymphocytes % (20.5 - 51.1 %) 13.9 L Monocytes % (1.7 - 9.3 %) 7.7 Eosinophils % (0 - 5 %) 0.9 Basophils % (0.0 - 2.0 %) 0.1 Absolute Granulocytes (1.4 - 6.5 /CUMM) 5.8 Absolute Lymphocytes (1.2 - 3.4 /CUMM) 1.0 L Absolute Monocytes (0.10 - 0.60 /CUMM) 0.6 Absolute Eosinophils (0.0 - 0.7 /CUMM) 0.1 Absolute Basophils (0.0 - 0.2 /CUMM) 0 12/19 12/19 0600 0337 Chemistry Sodium (137 - 145 mmol/L) Cancelled 140 Potassium (3.5 - 5.1 mmol/L) Cancelled 3.6 Chloride (98 - 107 mmol/L) Cancelled 111 H Carbon Dioxide (22 - 30 mmol/L) Cancelled 21 L Anion Gap (5 - 16) Cancelled 8 BUN (9 - 20 mg/dL) Cancelled 9 Creatinine (0.7 - 1.2 mg/dL) Cancelled 0.8 Estimated GFR (>60 ml/min) > 60 BUN/Creatinine Ratio (7 - 25 %) Cancelled 11.3 Troponin I (<0.11 ng/ml) 0.04 Bgn-V-Lxhmwscywon Pept (<125 pg/mL) 1560 H Hematology CBC w Diff NO MAN DIFF REQ WBC (4.8 - 10.8 /CUMM) 6.4 RBC (4.70 - 6.10 /CUMM) 4.09 L Hgb (14.0 - 18.0 G/DL) 12.0 L Hct (42 - 52 %) 36.5 L MCV (80.0 - 94.0 FL) 89.4 MCH (27.0 - 31.0 PG) 29.4 MCHC (33.0 - 37.0 G/DL) 32.9 L RDW (11.5 - 14.5 %) 23.8 H Plt Count (130 - 400 /CUMM) 230 MPV (7.4 - 10.4 FL) 7.6 Gran % (42.2 - 75.2 %) 70.0 Lymphocytes % (20.5 - 51.1 %) 17.5 L Monocytes % (1.7 - 9.3 %) 10.4 H Eosinophils % (0 - 5 %) 1.4 Basophils % (0.0 - 2.0 %) 0.7 Absolute Granulocytes (1.4 - 6.5 /CUMM) 4.5 Absolute Lymphocytes (1.2 - 3.4 /CUMM) 1.1 L Absolute Monocytes (0.10 - 0.60 /CUMM) 0.7 H Absolute Eosinophils (0.0 - 0.7 /CUMM) 0.1 Absolute Basophils (0.0 - 0.2 /CUMM) 0 12/19 2110 0659 Blood Gas pH (7.35 - 7.45 PH) 7.49 H pCO2 (35 - 45 TORR) 29 L pO2 (80 - 100 TORR) 62 L HCO3 (21 - 28 MEQ/L) 22 ABG O2 Sat (Measured) (>96.0 %) 90.0 L P-50 (Temp Corrected) N Carboxyhemoglobin (1.5 - 5.0 %) 0.2 L O2 Concentration % 100% O2 Delivery Method NRB Chemistry Sodium (137 - 145 mmol/L) 145 Potassium (3.5 - 5.1 mmol/L) 3.7 Chloride (98 - 107 mmol/L) 105 Carbon Dioxide (22 - 30 mmol/L) 27 Anion Gap (5 - 16) 12 BUN (9 - 20 mg/dL) 10 Creatinine (0.7 - 1.2 mg/dL) 0.8 Estimated GFR (>60 ml/min) > 60 BUN/Creatinine Ratio (7 - 25 %) 12.5 Magnesium (1.6 - 2.3 mg/dL) 2.0 Hematology CBC w Diff NO MAN DIFF REQ WBC (4.8 - 10.8 /CUMM) 6.8 RBC (4.70 - 6.10 /CUMM) 4.14 L Hgb (14.0 - 18.0 G/DL) 12.2 L Hct (42 - 52 %) 37.1 L MCV (80.0 - 94.0 FL) 89.5 MCH (27.0 - 31.0 PG) 29.4 MCHC (33.0 - 37.0 G/DL) 32.8 L RDW (11.5 - 14.5 %) 23.5 H Plt Count (130 - 400 /CUMM) 285 MPV (7.4 - 10.4 FL) 7.8 Gran % (42.2 - 75.2 %) 68.8 Lymphocytes % (20.5 - 51.1 %) 17.4 L Monocytes % (1.7 - 9.3 %) 11.3 H Eosinophils % (0 - 5 %) 2.3 Basophils % (0.0 - 2.0 %) 0.2 Absolute Granulocytes (1.4 - 6.5 /CUMM) 4.7 Absolute Lymphocytes (1.2 - 3.4 /CUMM) 1.2 Absolute Monocytes (0.10 - 0.60 /CUMM) 0.8 H Absolute Eosinophils (0.0 - 0.7 /CUMM) 0.2 Absolute Basophils (0.0 - 0.2 /CUMM) 0 Miscellaneous Phlebotomy Draw Site RIGHT RADIAL Diagnostic Data EKG Results Sinus rhythm rate 109, multiple PACs, diffuse ST depression laterally. Other Results CONCLUSIONS Mild concentric left ventricular hypertrophy. Normal left ventricular ejection fraction visually estimated at >65 Abnormal relaxation filling pattern of the left ventricle for age (stage 1 diastolic dysfunction). The left atrium is normal in size. Mild thickening/calcification of the mitral valve leaflets. No mitral regurgitation. Focal thickening of the aortic valve cusps. No aortic stenosis. Trace aortic regurgitation. Right ventricular systolic pressure estimated to be elevated at 45- 50 mmHg. The aortic root is upper normal limits in diameter. The mid ascending aorta is significantly dilated to 5.9 cm. Compared to echocardiogram of 11/25/2017 pulmonary artery pressure is now able to be measured and is moderately elevated. The mid descending aorta is significantly dilated on the current study and was not well visualized on the previous study. Jay Serrano M.D. (Electronically Signed) Final Date: 19 December 2017 IMPRESSION: Chest CTA 1. Multiple bilateral pulmonary emboli. 2. Dilated ascending aorta to approximately 6.0 cm in diameter. 3. Small right pleural effusion. Bibasilar opacities favoring atelectasis. 4. Nasogastric tube tip at the gastroesophageal junction; advancement recommended. 5. Status post right hemicolectomy. Multiple fluid-filled loops of small bowel, which may reflect postoperative ileus. 6. Questionable focus of thrombus in the superior mesenteric vein, which alternatively could reflect artifact. 7. Enlarged prostate gland. This critical result was discussed with Dr. Mccain on 12/19/2017 4:48 AM, and it was ascertained that the content and urgency of the report was understood at the time of direct communication. DICTATED BY: Aaron Kraft MD DATE/TIME DICTATED:12/19/17425 TUBE BENDER HAND:MIKIE DATE/TIME TRANSCRIBED:12/19/17425 12:43 Assessment/Plan Assessment/Plan The patient is a 72-year-old man who is about one week out from colon resection for cancer. He has developed bilateral pulmonary emboli. He has a minimal troponin rise, probably due to type II VT from hypoxia. He has known normal coronary arteries on a cardiac catheterization from just 2 weeks ago. Also the CTA of the chest documented an ascending aortic aneurysm of 6 cm which was confirmed on echocardiogram. This is currently asymptomatic. At this point the therapeutic thrust will be directed towards his acute pulmonary emboli. He will obviously be kept on IV heparin for a few days at least and then transitioned to oral anticoagulant therapy. As he has known normal coronary arteries we don't have to be too concerned about his minimal troponin rise, which I believe was due to hypoxia. With regard to his ascending aortic aneurysm, this is not an acute problem at this time and can be addressed as an outpatient. He will of course have to recover from his surgery as well as the pulmonary emboli before any definitive treatment can be undertaken with regards to the aneurysm. Copies To: Shaw MURDOCK,Bull Pabon; Gutierrez MURDOCK,Jay Curran. Consult Acknowledgment - Thank you for your consult request.
--- NOTE | 2017-12-19 10:11 | Cons- Vascular Surgery ---
See Addendum General Information and HPI Consulting Request Date of Consult: 12/19/17 Requested By: Milad Fay Reason for Consult: bilateral PE and dvt Source of Information: patient, old records Exam Limitations: no limitations History of Present Illness: Mr Horan is a 72yo male who recently underwent a lap to open right hemicoloctomy on 12/11 for a colon mass which has now been diagnosed as stage 3 colon cancer. His post op course has been complicated by a prolonged ileus requiring NGT replacement. Unfortunately he has been routinely refusing his subcut heparin which has been ordered at 5000units tid and he also routinely removes his ALPS because they bother him. He has been ambulatory. This morning at around 3 am a rapid response was called to pts room. Per the nurse he was ambulating, became incontinent, roomate called for help, he was found to be mildly confused, sob, tachypnic. His initial vital signs show HR 120, bp 80/palp, o2 sat 70%, increased reps rate and effort. he was placed back on ng suction as he had previously been oob, less than 50cc output. supplemental O2 was provided via 100% NRB and his sat slowly kishor to 90% after several minutes. he remained tachy in the 115 range. pt had no complaints, stated he "felt fine", no sob, no cp, no worsening abd pain. no calf pain or swelling. At that time he was ordered a stat CTA and CT with IV contrast of the abd/pelvis as well as labs. He was also transferred to [facility] for closer monitoring and a continuous pulse ox. His CTA was positive for multiple bilateral PE's and he was placed on a heparin drip. 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 Around 7 this morning I was called by nursing regarding a noted 21 beat run of V Tach. On evaluation, his bp was stable, HR 109, sats were 91-92% on nonrebreather. He was awake and alert without any chest pain or other complaints. Denied feeling short of breath. The medical team was notified and it was felt he would be better served in the ICU. BLE was ordered - report pending but prelim is bilateral DVT. Vascular surgery is being consulted for recommendations regarding PE's and DVT. 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 Home Smoking Status: Former Smoker Exam & Diagnostic Data Vital Signs and I&O Vital Signs Date Time Temp Pulse Resp B/P B/P Pulse O2 O2 Flow FiO2 Mean Ox Delivery Rate 12/19 08 99.0 110 30 112/70 94 Nasal 80% Cannula 12/19 08 94 Nasal 80% Cannula 12/19 0538 98.9 110 36 110/80 92 Non ReBreather 12/19 0436 Non 100% ReBreather 12/19 0000 Nasal 2.0L Cannula 12/18 2130 98.3 92 18 100/66 90 12/18 1600 94 Nasal 2.0L Cannula 12/18 1447 98.1 82 20 114/72 90 Nasal 2.0L Cannula Intake & Output 12/19 1600 12/19 0800 12/19 0000 12/18 1600 12/18 0800 12/18 0000 Intake Total 656.9 1000 1150 1240 240 Output Total 300 750 900 400 300 Balance 356.9 250 250 840 -60 Intake, IV 656.9 7208 780 2712 Intake, Oral 350 240 240 Number 1 1 Bowel Movements Output, 300 750 400 300 Gastric Drainage Output, Urine 900 Patient 177 lb Weight Weight Bed scale Measurement Method Physical Exam: General: alert and oriented times three Chest: clear anteriorly bilaterally, RRR, no murmurs, no rales/rhonchi/wheezing Abd: softly distended, hypoactive bs present, nontender Wd: looks good, healing well Ext: 1-2+ edema BLE R>L, normosensate, no calf tenderness Assessment/Plan Assessment/Plan 72yo male s/p R hemicolectomy 12/11 with post op ileus now with new bilateral PE' s and prelim bilateral DVT post op Discussed with Dr Castillo In regrds to his pe's and dvt - he is already on the heparin drip which was started this morning. No further intervention will be recommended as this is the treatment. No surgical intervention, IVC filter or thrombolysis is indicated Dr Castillo will see the patient later Consult Acknowledgment - Thank you for your consult request.
--- NOTE | 2017-12-19 10:23 | ULTRASOUND REPORT ---
EXAMINATION: US TRIPLEX OF LOWER EXTREMITIES, BILATERAL CLINICAL INFORMATION: Multiple pulmonary embolus in CTA. COMPARISON: CTA from earlier today. TECHNIQUE: Color-flow triplex imaging with spectral analysis and compression Doppler were performed on the lower extremities. FINDINGS: Right lower extremity: There is a nonocclusive thrombus in the right popliteal vein. The common femoral vein and femoral vein appear patient with normal compression and vascular flow. Calf veins are not visualized. Left lower extremity: There is a nonocclusive thrombus extending from the mid femoral vein to the popliteal vein. The common femoral vein and proximal aspect of the femoral vein are patent. Calf veins are not visualized. IMPRESSION: 1. Study positive for deep vein thrombosis in bilateral lower extremities. 2. Nonocclusive thrombus in the right popliteal vein. 3. Nonocclusive thrombus in the left lower extremity extending from the mid femoral vein to the popliteal vein. 4.. Bilateral calf veins are not visualized. This critical result was discussed with Dr. Chavez at 9:55 AM on 12/19/2017 and it was ascertained that the content and urgency of the report was understood at the time of direct communication.
--- NOTE | 2017-12-19 12:44 | ECHOCARDIOGRAM REPORT ---
JOHN FELDMAN Age: 72 : 1945 Gender: M Exam Date: 12/19/2017 10:03 Exam Location: [facility] Ht (in): 72 Wt (lb): 177 BSA: 2.02 BP: 117 / 76 Ordering Physician: Royer Wu MD Referring Physician: Royer Wu MD Technologist: Ba Gauthier [facility] Room Number: 107-1 Indications: ACUTE PULMONARY EMBOLISM Rhythm: Sinus Technical Quality: Good FINDINGS Left Ventricle Normal size left ventricle. Mild concentric left ventricular hypertrophy. Normal left ventricular ejection fraction visually estimated at >65 %. No obvious regional wall motion abnormalities. Abnormal relaxation filling pattern of the left ventricle for age (stage 1 diastolic dysfunction). Right Ventricle The right ventricle is normal in size and function. Right Atrium The right atrium is normal in size. Left Atrium The left atrium is normal in size. The interatrial septum is intact. Mitral Valve Mild thickening/calcification of the mitral valve leaflets. No mitral regurgitation. Aortic Valve Focal thickening of the aortic valve cusps. No aortic stenosis. Trace aortic regurgitation. Tricuspid Valve Tricuspid valve is normal in structure and function. Trace to mild tricuspid regurgitation. Right ventricular systolic pressure estimated to be elevated at 45-50 mmHg. Pulmonic Valve Structurally normal pulmonic valve. There is no pulmonic regurgitation. Pericardium Normal pericardium without effusion. No pleural effusion. Great Vessels The aortic root is upper normal limits in diameter. The mid ascending aorta is significantly dilated to 5.9 cm. CONCLUSIONS Mild concentric left ventricular hypertrophy. Normal left ventricular ejection fraction visually estimated at >65 Abnormal relaxation filling pattern of the left ventricle for age (stage 1 diastolic dysfunction). The left atrium is normal in size. Mild thickening/calcification of the mitral valve leaflets. No mitral regurgitation. Focal thickening of the aortic valve cusps. No aortic stenosis. Trace aortic regurgitation. Right ventricular systolic pressure estimated to be elevated at 45- 50 mmHg. The aortic root is upper normal limits in diameter. The mid ascending aorta is significantly dilated to 5.9 cm. Compared to echocardiogram of 11/25/2017 pulmonary artery pressure is now able to be measured and is moderately elevated. The mid descending aorta is significantly dilated on the current study and was not well visualized on the previous study. Jay Serrano M.D. (Electronically Signed) Final Date: 19 December 2017 12:43 MEASUREMENTS (Male / Female) Normal Values 2D ECHO LV Diastolic Diameter PLAX 5.2 cm 4.2 - 5.9 / 3.9 - 5.3 cm LV Systolic Diameter PLAX 3.7 cm 2.1 - 4.0 cm LV Fractional Shortening PLAX 28.8 % 25 - 46 % LV Ejection Fraction 2D Teich 55.1 % IVS Diastolic Thickness 1.2 cm LVPW Diastolic Thickness 1.2 cm LV Relative Wall Thickness 0.5 RV Internal Dim ED PLAX 3.1 cm 1.9 - 3.8 cm LVOT Diameter 2.3 cm Aortic Root Diameter 3.5 cm LA Systolic Diameter LX 3.0 cm 3.0 - 4.0 / 2.7 - 3.8 cm LA Volume 39.0 cm 18 - 58 / 22 - 52 cm Ascending Aorta Diameter 5.9 cm DOPPLER AV Peak Velocity 109.0 cm/s AV Peak Gradient 4.8 mmHg AV Mean Velocity 73.9 cm/s AV Mean Gradient 3.0 mmHg AV Velocity Time Integral 23.0 cm AI Deceleration Esmeralda 247.0 cm/s AI Peak Velocity 252.0 cm/s AI Pressure Half Time 299.0 ms AI Peak Gradient 25.4 mmHg LVOT Peak Velocity 60.2 cm/s LVOT Peak Gradient 1.4 mmHg LVOT Mean Velocity 39.8 cm/s LVOT Mean Gradient 1.0 mmHg LVOT Velocity Time Integral 17.9 cm LVOT Stroke Volume 74.4 cm AV Area Cont Eq vti 3.2 cm AV Area Cont Eq pk 2.3 cm MV Peak Velocity 79.2 cm/s MV Peak Gradient 2.5 mmHg MV Mean Velocity 46.1 cm/s MV Mean Gradient 1.0 mmHg Mitral E Point Velocity 48.9 cm/s Mitral A Point Velocity 81.4 cm/s Mitral E to A Ratio 0.6 MV PHT Velocity 62.7 cm/s MV Deceleration Esmeralda 134.0 cm/s MV Pressure Half Time 140.4 ms MV Area PHT 1.6 cm MV Deceleration Time 335.0 ms TR Peak Velocity 342.0 cm/s TR Peak Gradient 46.8 mmHg Right Atrial Pressure 10.0 mmHg Pulmonary Artery Systolic Pressu 56.8 mmHg Right Ventricular Systolic Press 56.8 mmHg
[2017-12-19 13:06] LABS: PTT 96 SEC (25-37)
[2017-12-19 16:00] VITALS: BP 124/70
[2017-12-19 22:56] LABS: PTT 85 SEC (25-37)
[2017-12-19 23:00] VITALS: BP 70/0
[2017-12-20 00:37] LABS: ABSOLUTE BASOPHIL COUNT 0 /CUMM (0.0-0.2); ABSOLUTE EOSINOPHIL COUNT 0.1 /CUMM (0.0-0.7); ABSOLUTE MONOCYTE COUNT 0.4 /CUMM (0.10-0.60); BASOPHIL % 0.1 % (0.0-2.0); EOSINOPHIL % 0.9 % (0-5); GRANULOCYTE % 80.2 % (42.2-75.2); MEAN CORPUSCULAR HGB 29.9 PG (27.0-31.0); MEAN CORPUSCULAR HGB CONC 33.7 G/DL (33.0-37.0); MEAN CORPUSCULAR VOLUME 88.7 FL (80.0-94.0); PLATELET COUNT 209 /CUMM (130-400); WHITE BLOOD CELL COUNT 7.4 /CUMM (4.8-10.8)
--- NOTE | 2017-12-20 00:43 | Event Note ---
Event Note Event Note: 11.15pm I was notified by the nurse that the systolic blood pressure was around 70. Of note patient was getting D5 half normal saline at 125 mL per hour. We gave him 500 mL fluid bolus after which blood pressure came up to 85. Hypotension most likely from unstable pulmonary embolism. Vitals afebrile heart rate 90-95, respiratory rate 20, blood pressure 70/40, saturating at 94 on 70% oxygen flow. He is asymptomatic, sleeping, offers no complaints. Denies any chest pain, short of breath, palpitations, pleuritic chest pain, abd pain. On exam he is oriented 3, no JVD, S1-S2 regular, no murmur, bilateral decreased breath sounds. Discussed with Dr. Almeida registered medical transcriptionist. Recommended to get stat CBC, ICU bundle, troponin, EKG stat chest x-ray. Advised to continue 1 more bag of normal saline 500 mL bolus. If he continues to remain hypotensive with systolic blood pressure less than 70 or map less than 60 patient should be started on vasopressors-levophed. * Hypotension most likely from unstable pulmonary embolism. * continue IV FLUID resuscitation- one litre bolus and then maintenance fluids * Low Threshold for central line and pressors * Notified Dr. Squires general surgery * Latest BP 96/50 after 500ml bolus * Please follow-up CBC, ICU bundle, troponin, EKG, chest x-ray * Please notify vascular surgeon if patient blood pressure doesn't improve and discuss about further plans like catheter directly thrombectomy, given his contraindication to TPA * Discussed with Dr. Hylton and Dr. Almeida * Patient care was transferred to medical team under Dr. Almeida.
[2017-12-20 00:46] LABS: HEMATOCRIT 28.4 % (42-52)
--- NOTE | 2017-12-20 01:22 | RADIOLOGY REPORT ---
EXAMINATION: XR PORTABLE CHEST CLINICAL INFORMATION: Shortness of breath, hypotension COMPARISON: 12/15/2017 TECHNIQUE: Portable frontal view of the chest was obtained. FINDINGS: Enteric tube is present, not well visualized distally. The lungs are hypoinflated. There is mild streaky left basilar opacity favoring atelectasis. No additional consolidation is seen. No evidence of pneumothorax, pleural effusion, or pulmonary edema. The cardiomediastinal contour is unremarkable. No acute osseous findings are seen. IMPRESSION: Low lung volumes with streaky left basilar opacity favoring atelectasis.
[2017-12-20 05:19] LABS: ABSOLUTE BASOPHIL COUNT 0 /CUMM (0.0-0.2); ABSOLUTE EOSINOPHIL COUNT 0 /CUMM (0.0-0.7); ABSOLUTE GRANULOCYTE CT 6.8 /CUMM (1.4-6.5); ABSOLUTE LYMPH COUNT 0.9 /CUMM (1.2-3.4); ABSOLUTE MONOCYTE COUNT 0.6 /CUMM (0.10-0.60); BASOPHIL % 0.1 % (0.0-2.0); EOSINOPHIL % 0.3 % (0-5); GRANULOCYTE % 81.2 % (42.2-75.2); HEMATOCRIT 26.9 % (42-52); MEAN CORPUSCULAR HGB 29.7 PG (27.0-31.0); MEAN CORPUSCULAR VOLUME 90.2 FL (80.0-94.0); MEAN PLATELET VOLUME 8.3 FL (7.4-10.4); PLATELET COUNT 214 /CUMM (130-400); RBC DISTRIBUTION WIDTH 23.7 % (11.5-14.5); RED BLOOD CELL CT 2.98 /CUMM (4.70-6.10); WHITE BLOOD CELL COUNT 8.4 /CUMM (4.8-10.8)
--- NOTE | 2017-12-20 05:24 | PN- General Surgery ---
Subjective Subjective: 72-year-old, hemicolectomy POD 9 was seen multiple times overnight for episodes of hypotension. He was given a total of 2 L normal saline and boluses responded initially but this morning his systolic blood pressure remains in the 70s. Patient is arousable and is comfortable but overnight had some complaints of right flank pain this diminished this morning as IV Tylenol was given. Due to his unsteady vitals his care was transferred over to Dr. Almeida Objective Vital Signs and I&Os Vital Signs Date Time Temp Pulse Resp B/P B/P Pulse O2 O2 Flow FiO2 Mean Ox Delivery Rate 12/20 0400 95 Nasal 70% Cannula 12/20 0330 94 Nasal 70% Cannula 12/20 0014 96 Nasal 70% Cannula 12/20 0000 94 Nasal 75% Cannula 12/19 2300 99.0 91 29 70/0 94 Nasal 75% Cannula 12/19 2220 94 Nasal 70% Cannula 12/19 2000 96 Nasal 75% Cannula 12/19 1930 95 Nasal 75% Cannula 12/19 1610 95 Nasal 75% Cannula 12/19 1600 94 Nasal 75% Cannula 12/19 1600 98.6 106 22 124/70 94 Nasal 75% Cannula 12/19 1200 94 Nasal 85% Cannula 12/19 0800 99.0 110 30 112/70 94 Nasal 80% Cannula 12/19 0800 94 Nasal 80% Cannula 12/19 0538 98.9 110 36 110/80 92 Non ReBreather Intake & Output 12/20 0800 12/20 0000 12/19 1600 12/19 0800 12/19 0000 12/18 1600 Intake Total 1602 352 656.9 1000 1150 Output Total 300 400 300 750 900 Balance 1302 -48 356.9 250 250 Intake, IV 1602 252 656.9 1000 800 Intake, Oral 100 350 Number 1 1 Bowel Movements Output, 100 300 750 Gastric Drainage Output, Urine 200 400 900 Patient 177 lb Weight Weight Bed scale Measurement Method Physical Exam: Patient is lying in bed arousable Clear to auscultation with crackles at bases bilaterally Abdomen with distention positive faint bowel sounds no guarding or rebound Heart regular rate and rhythm without murmurs rubs gallops rate into the 90s. Bilateral lower extremities no edema sensory intact Assessment/Plan Assessment/Plan Assessment patient is 9 days status post right hemicolectomy his care was transferred to Dr. Almeida service for issues with hypotension nonresponsive to IV hydration. We will continue to monitor his status as pressors may be indicated. continue NGT, npo, ivf. Bilateral PE's: Heparin drip, hospitalist consult cont tele monitoring Cont supplemental O2 Pain regimen prn Home meds on board GI/DVT ppx on board Encourage IS d/w Dr. Squires and Dr. Almeida Core Measures Venous Thromboembolism VTE Risk Factors Surgery No Mechanical VTE Prophylaxis d/t N/A MechProphylax Ordered No VTE Pharm Prophylaxis d/t NA PharmProphylax ordered
--- NOTE | 2017-12-20 07:49 | Procedure ---
Minor Surgical Procedure Note Date of Procedure: 12/20/17 Procedure Note: PROCEDURE: TLC placement INDICATION: hypotension requiring pressor support Consent obtained prior to procedure. Time out done in routine fashion. Area prepped and draped in sterile fashion. Ultrasound guidance utilized to isolate right internal jugular vein. Less than 5mls lidocaine injected into the skin and subcutaneous tissue. R IJ accessed easily via ultrasound guidance, wire advanced easily, site dilated, and tlc advanced easily. All 3 ports easily withdraw venous appearing blood, and flush easily. TLC secured in two places with sutures. Blue disc placed, and tegaderm over tlc site. chest xray obtained to confirm tlc placement and rule out ptx Procedure performed by Madhavi Costello, supervised by Farheen Neil
--- NOTE | 2017-12-20 07:49 | Event Note ---
Event Note Event Note: Consent obtained for CT abdomen w/ contrast. Explained risks vs benefits. This is a necessary test to look for any worsening intra-abdominal pathology. Pt verbalized the understanding of risks of contrast administration. As per the pt, he never had any adverse reaction to contrast in the past. Updated the family. 8:43 AM, received a phone call from [facility] about an abnormal reading on CAT scan abdomen. It was noted that he has a large hematoma in the retroperitoneum and extending up to paracolic gutter. Reached out immediately to surgical PA to inform Dr. Squires. As per the surgical PA, she would go down to the operating room, and let him know. Also reached out to Dr. Castillo, vascular surgeon monorail crane operator, for advise on placing an IVC filter and a possible catheter driven mechanical thrombectomy given right heart strain and hypotension. As per the surgeon, recent surgery is an absolute contraindication in his case; And would call us back regarding the placement of IVC filter, after making necessary arrangements. IV heparin on hold. Discussed the plan with Dr. Almeida, clip and hanger attacher. Reached out to the interventional radiology, and had them review the case. Also updated the patient and the family about the management plan. IVC filter was placed without any complications. BP remains stable, but continues to be on levophed. Also reached out to Dr. Squires, about word on anticoagulation who thought that he should be off anticoagulation. At this time, there dont seem to be any active plan for surgical exploration. Await resolution of symptoms after PRBC transfusion.
--- NOTE | 2017-12-20 07:57 | RADIOLOGY REPORT ---
EXAMINATION: XR PORTABLE CHEST CLINICAL INFORMATION: Central line placement. COMPARISON: Same date at 12:24 AM TECHNIQUE: Portable frontal view of the chest was obtained. FINDINGS: Multiple EKG leads over the chest. Right IJ central venous catheter terminates at the cavoatrial junction. Gastric decompression tube extends off the inferior border of the study. Calcific atherosclerosis is present within the thoracic aorta. Cardiac and mediastinal contours are within normal limits in size. Lungs are hypoinflated with bibasilar opacities favor atelectasis. No new consolidation. No pneumothorax, pleural effusion, pulmonary edema. Osseous structures are unremarkable. IMPRESSION: Right IJ central venous catheter terminates at the cavoatrial junction. Low lung volumes with mild bibasilar atelectasis.
[2017-12-20 08:00] VITALS: BP 80/50
--- NOTE | 2017-12-20 08:27 | PN- Resident CRCU ---
Radha MURDOCK,[facility] 12/20/17 0827: Subjective HPI/CRCU Issues: # Hypovolemic Shock on Pressors # Retroperitoneal Hematoma # Acute hypoxic respiratory failure secondary to acute pulmonary embolism. # Bilateral lower extremity DVT # Nonsustained ventricular tachycardia. # Postop day 8 following open right hemicolectomy for colorectal cancer. # Abdominal aortic aneurysm. 6 cm in size. # SMV thrombus. 24 Hour Events: Patient's blood pressure overnight dropped down to 70/Doppler, received almost 3 L of IV fluid boluses without any improvement. Central line was placed by the surgical team and patient started on Levophed. Blood pressure this morning stable on pressors. Objective Vital Signs & I&O Last 8 Hrs of Vitals and I&O: Intake & Output 12/20 1600 Intake Total 1651 Output Total 760 Balance 891 Intake, IV 1651 Output, 300 Gastric Drainage Output, Urine 460 Exam General Appearance: well developed/nourished, alert, awake, lethargic Head: atraumatic, normal appearance Neck: right IJ in place Respiratory: normal breath sounds, chest non-tender Cardiovascular: regular rate/rhythm Gastrointestinal: normal bowel sounds, soft, distention, tenderness Extremities: normal inspection, trace pedal edema Cranial Nerves: normal hearing, normal speech, PERRL Central Line Site: RIJ Date In: 12/20/17 Need for Catheter: pressors NG Tube Date In: 12/14/17 Still Needed? Yes Current Medications: Current Medications Sig/Thai Start time Last Medication Dose Route Stop Time Status Admin Acetaminophen 1,000 MG .STK-MED ONE 12/20 0406 DC IV 12/20 0407 Acetaminophen 1,000 MG Q6P PRN 12/11 1730 AC 12/20 IV 0408 Escitalopram Oxalate 10 MG DAILY 12/12 0900 AC 12/19 PO 1145 Heparin Sodium/ 25,000 UNIT Q24H 12/19 0545 DC 12/19 Dextrose IV 2159 Dextrose/Water 500 ML Ioversol 0 .STK-MED ONE 12/20 1101 DC IV Lidocaine 0 .STK-MED ONE 12/20 1101 DC .ROUTE Lorazepam 1 MG ONE 12/19 2200 DC 12/19 IV 12/19 220 2157 Lorazepam 0 Q1P PRN 12/13 0815 DC 12/15 IV 0021 Magnesium Sulfate 1 GM ONCE ONE 12/20 1015 AC Dextrose/Water 100 ML IV 12/20 1414 Magnesium Sulfate 1 GM ONCE ONE 12/19 0915 DC 12/19 Dextrose/Water 100 ML IV 12/19 1314 1145 Melatonin 5 MG AT BEDTIME PRN 12/15 2045 AC 12/15 PO 2139 Morphine Sulfate 2 MG Q2P PRN 12/14 1345 AC 12/16 IV 0233 Norepinephrine 4 MG Q24H 12/20 0545 AC 12/20 Sodium Chloride 250 ML IV 0838 Ondansetron HCl 4 MG Q6P PRN 12/11 1730 AC 12/15 IV 0728 Pantoprazole Sodium 40 MG DAILY 12/16 0900 AC 12/19 IV 1145 Phenol 2 SPRAY Q2P PRN 12/14 2345 AC EXT Potassium Chloride 40 MEQ Q6H 12/20 0145 AC 12/20 Dextrose/Sodium 1,000 ML IV 0231 Chloride Potassium Chloride 10 MEQ Q1H 12/20 0130 DC 12/20 IV 12/20 0231 0238 Potassium Chloride 20 MEQ Q8H 12/17 1000 DC 12/19 Dextrose/Sodium 1,000 ML IV 2016 Chloride Potassium Phosphate 15 mMol ONE ONE 12/20 1015 AC Dextrose/Water 250 ML IV 12/20 1419 Sodium Chloride 1,000 ML BOLUS ONE 12/20 0545 DC 12/20 IV 12/20 0644 0543 Sodium Chloride 1,000 ML BOLUS ONE 12/20 0445 DC 12/20 IV 12/20 0644 0444 Sodium Chloride 1,000 ML BOLUS ONE 12/20 0230 DC 12/20 IV 12/20 0429 0238 Sodium Chloride 500 ML BOLUS ONE 12/20 0015 DC 12/20 IV 12/20 0114 0006 Sodium Chloride 500 ML BOLUS ONE 12/19 2245 DC 12/19 IV 12/19 2344 2249 Impression/Plan Impression/Problem List Impression: Mr. 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 Rapid response was called this morning after patient was found to be tachycardic with heart rate in 120s, hypotensive with blood pressure 80/Doppler and O2 sats in the 70s improved to 75% on nonrebreather mask and is found to have multiple bilateral pulmonary emboli on CTA. Patient remians in ICU for the management of following issues; # Hypovolemic Shock on Pressors # Retroperitoneal Hematoma # Acute hypoxic respiratory failure secondary to acute pulmonary embolism. # Bilateral lower extremity DVT # Nonsustained ventricular tachycardia. # Postop day 8 following open right hemicolectomy for colorectal cancer. # Abdominal aortic aneurysm. 6 cm in size. # SMV thrombus. Plan Respiratory; 1. Bilateral Pulmonary emboli; Patient had a recent hemicolectomy done for cecal adenocarcinoma, and has been refusing his subcutaneous heparin for DVT prophylaxis per the nurses. Bilateral lower extremity Doppler was done after the patient was transferred to ICU showing bilateral nonocclusive popliteal vein thrombosis. Patient also has baseline abnormal EKG changes but second set of troponin came back elevated to 0.26. Echocardiogram was obtained showing normal ejection fraction with no regional wall motion abnormalities and stage I diastolic dysfunction. Right ventricular systolic pressure estimated to be elevated at 45- 50 mmHg. ProBNP 2260. Vascular surgery was consulted regarding possible ivc filter vs intervention did not recommend any surgical intervention at the time, recommended continuing IV heparin. - IV heparin drip on hold because of retroperitoneal hematoma - IVC filter placed by IR - Appreciate vascular surgery recommendations - Vitals every hour - Continue supplemental oxygen as needed keep O2 sats above 90%. - Appreciate cardiology recommendations. Infectious; None Cardiology; 1. Nonsustained V. tach; patient had a 20 beat run of V. tach earlier this morning. White fluids remained stable at the time. Echocardiogram normal. - Monitor electrolytes a and replete accordingly(keep mag > 2,K and phosphorus > 4) - F/U Cardiology recommendations. 2. Elevated Troponins; Likely demand ischemia. No new EKG changes. Patient has baseline abnormal EKG changes with ST depressions in lateral leads. Echocardiogram was obtained showing normal ejection fraction with no regional wall motion abnormalities and stage I diastolic dysfunction. - Appreciate cardiology recommendations. 3. Hypovolemic Shock; Overnight Patient's blood pressure dropped down to 70/ Doppler, received almost 3 L of IV fluids without any improvement. Central line was placed by the surgical team and patient started on Levophed. CBC was also obtained at that time showing a significant drop in hemoglobin from 12.[address] abdomen and Pelvis showed large right-sided retroperitoneal hematoma. Patient is given 1 unit of PRBCs. - Continue Levophed - Repeat CBC Post Trasfusion. - IV heparin on hold. - Continue to monitor vitals. - f/u Surgery recommendations. 3. ?? Mesenteric vein thrombosis; - IV heparin on hold. - f/u vascular surgery recommendations 4. Ascending Aortic Aneurysm; - Appreciate cardiology recommendations; Can be managed as an outpatient. Heme; 1. Anemia; - See above Metabolic; - Continue to monitor creatinine and electrolytes. Alimentary; 1. Colon cancer status post hemicolectomy(12/11); NG tube in place. - Nothing by mouth - Continue gentle IV fluids. Neurology; None DVT Prophylaxis; ALPS only, Heparin on hold for Retroperitoneal Hematoma Patient is Full Code. Problem List: 1. Multiple pulmonary emboli 2. Malignant neoplasm of cecum Pain Ratin Pain Location: abdomen Pain Goal: Pain 7 or less Pain Plan: Pain Pathway Tomorrow's Labs & Rationales: CBC(ABLA with Retroperitoneal Hematoma) ICU bundle Plan DVT/Prophylaxis: mechanical Aryan Almeida MD 12/20/17 1353: Attending MD Review Statement Attending Sign Off Other Findings: Impression 72 year old man * multiple bilateral pulmonary emboli (submassive) and DVT * run of Vta * Stage 3C colon cancer s/p radical right hemicolectomy * right sided retroperitoneal hematoma Plan Respiratory/Heme/CVS -high flow o2, spo2 goal >92% -IVC filter urgently - heparin held given retroperitoneal hematoma -vascular surgery consultation appreciated -f/u cardiology -iv fluids and blood products, continue to follow surgical plan regarding hematoma ID -monitor wbc, fevers Metabolic -ins/outs -creatinine/electrolyte monitoring Alimentary -NPO Neuro -no acute issues Discussed with patient, and surgical team TTS 50 min
--- NOTE | 2017-12-20 08:54 | Discharge Summary ---
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 He was managed on the floor, and the hospital course was complicated by tachypnea and hypoxemia, hypotension, tachycardia on the operative day 8 of surgery. Imaging was obtained, which revealed multiple bilateral pulmonary emboli, with right embolus within the distal right main pulmonary artery extending into upper , middle, and lobar and segmental vessels and left embolus at the distal main pulmonary artery. He was transferred to intensive care unit for closer monitoring of hemodynamics. Follow-up venous Doppler revealed nonocclusive thrombus in the right popliteal vein, and nonocclusive thrombus in the left lower extremity extending from the mid femoral vein to the popliteal vein. He was initially started on intravenous heparin. There was an incidental finding of dilated ascending aortic up to 6 cm in diameter, which was confirmed by follow-up echocardiogram. CT scan of the abdomen revealed questionable focus of thrombus in the superior mesenteric vein, and multiple fluid loops of small bowel that reflected postoperative ileus. Echocardiogram revealed right ventricular systolic pressure estimated to be elevated at 45-50 mmHg. Since he had tachycardia and tachypnea, cardiac workup was done with serial echocardiograms and cardiac enzymes. He had persistent ST segment depressions in lateral leads, which seemed chronic as per Dr. Serrano. He was given a dose of ASA, and cotinued on iv heparin. Cardiac enzymes peaked at 0.26. There was no report of right heart strain on the echocardiogram, that said, he did have elevated pro BNP 2260. As per the environmental compliance manager, he had Allergies: Coded Allergies: NO KNOWN ALLERGIES (10/25/17) Discharge Instructions Medications at Discharge Discharge Medications: Continue taking these medications: Escitalopram Oxalate (Lexapro) 10 MG TABLET 1 Tablet ORAL DAILY [IRON] (Unknown Strength) Unknown Dose ORAL THREE TIMES DAILY
--- NOTE | 2017-12-20 08:54 | PN- Vascular Surgery ---
Surgical Brief Attending Note Brief Attending Note: VASCULAR ATTENDING NOTE: Agree with PA note dated 12/19. Briefly this is a 72-year-old male admitted for a colon mass/cancer which required a hemicolectomy by Dr. Squires. During the immediate postoperative period he encountered an ileus and was bedridden. He refused his subcutaneous heparin and began to have bilateral lower extremity swelling in addition to shortness of breath. At that time bilateral pulmonary emboli and bilateral DVT were diagnosed. He was transferred to the ICU due to respiratory issues. He is now on the surface of the critical care team. At this time he appears comfortable with O2 sats in the low to mid 90s and he denies low family discomfort. Physical exam revealed a male who looks older than his stated age. He was on a nonrebreather. Bilateral lower extremities are well-perfused with no evidence of phlegmasia. He does have bilateral lower extremity trace swelling. Imaging was reviewed. His CTA of the chest demonstrates an ascending aortic aneurysm with evidence of bilateral pulmonary emboli. His bilateral lower extremity exam demonstrates infrainguinal DVT. Our assessment is that this is a 72-year-old male with a provoked DVT due to his refusal to take his prophylaxis. 1.) He is not a candidate for thrombectomy or thrombolytic therapy due to his immediate postoperative state. TPA ministration is absolutely contraindicated 2.) If anticoagulation were to be stopped he would require an IVC filter. However there is no clear role for IVC filter at this time as the patient is safely anticoagulated. 3.) Recommend cardiology/thoracic surgery evaluation for ascending aneurysm. 4.) Continue care as per primary team.
--- NOTE | 2017-12-20 08:57 | Event Note ---
Event Note Event Note: Around 5:45 AM P.t still hypotensive we started 3 L of NS and prep Levophed pressor also I examin the p.t and his ABD distended and tender mainly on the left upper and lower quadrant also his CBC came back with drop in his H&H he remain alert, awake and oriented with good urine output. I informed the surgical PA to inform Dr. Squires and to address if he agree with obtaining CT abdomen pelvis with IV contrast to rule out any bleeding also we held his heparin drip and I informed Dr. Almeida, we start the Levophed peripherally as his blood pressure not improve with the third liter of normal saline and we consulted surgery team to place a right IJ patient consented verbally. Also inform his family about the new changes.
--- NOTE | 2017-12-20 09:04 | CT SCAN REPORT ---
EXAMINATION: CT ABDOMEN AND PELVIS WITH CONTRAST CLINICAL INFORMATION: Status post hemicolectomy. Abdominal tenderness and drop in H/H. Evaluate for bleeding COMPARISON: CT abdomen and pelvis dated 11/13/2017 TECHNIQUE: Multidetector volumetric imaging was performed of the abdomen and pelvis following IV administration of 95 mL of Optiray 320 intravenous contrast. Sagittal and coronal reformatted images were obtained on the technologist's workstation. DLP: 1029.73 mGy-cm FINDINGS: LUNG BASES: Small bilateral pleural effusions, right greater than left with associated compression atelectasis bilateral lower lobes. Intimal calcification of the aorta and coronary arteries.. Moderate sized hematoma seen is heterogeneous density is noted along the right posterior/posterolateral retroperitoneal region along the abdominal wall (series 2 image 54). It is noted posterior and lateral to the right-sided psoas which is displaced anteriorly. Blood hematocrit level is noted within this large hematoma.. It measures approximately 12 x 8.6 x 18 cm (series 2 image 53 and series 602 image 79). Stranding and edema extends into the into the intraperitoneal region and more inferiorly into the pelvis. Trace ascites. LIVER, GALLBLADDER, AND BILIARY TREE: The liver is normal in size, shape, and attenuation. No focal hepatic lesion or biliary ductal dilatation is present. Slightly hyperdense bile and pericholecystic fluid/edema. Perihepatic fluid. PANCREAS: Diffuse mild atrophy. SPLEEN: Unremarkable. Perisplenic fluid. ADRENAL GLANDS: Unremarkable. KIDNEYS AND URETERS: Low-attenuation cortical lesions bilateral kidneys noted again. Larger low-attenuation lesion with calcification along the wall. Hounsfield units are higher than simple water density in the large low-attenuation mass posterior aspect midright kidney. The internal attenuation is greater than previously seen raising the possibility of internal hemorrhage within the complex cyst. Stable left renal low-attenuation lesion. BLADDER: [address] GASTROINTESTINAL TRACT: Status post right hemicolectomy. Anastomotic sutures compatible with ileocolic anastomosis noted at the level of the mid transverse colon. There is moderate stranding and edema surrounding the postoperative site. Multiple fluid-filled and distended small bowel loops noted within the abdomen. Small bowel loops demonstrate maximal distention measuring approximately 4.2 cm. Zone of transition between the dilated and nondilated fluid-filled small bowel loops appears to be along the right lateral abdominal wall anterior to the hematoma. Collapsed appearance of the large bowel. Nasogastric tube terminating in the proximal stomach. Sidehole is likely at the level of the GE junction. ABDOMINAL WALL: Postoperative changes with surgical taisha noted in the midline anterior abdomen. Anterior abdominal wall and adjacent subcutaneous edema. Tiny fat-containing umbilical hernia. Right-sided inguinal hernia containing fat and small to moderate fluid.. LYMPH NODES: There are multiple enlarged mesenteric lymph nodes. Larger lymph node noted superior to the pancreas measures 1.2 cm in short axis (series 2 image 28). This has increased over the interval. Enlarged mesenteric lymph nodes adjacent to the SMA (series 2 image 36) also demonstrate interval increase. VASCULAR: Atherosclerotic disease with intimal calcification of the aorta and aortic branches. PELVIC VISCERA: Enlarged prostate gland with internal calcification. OSSEOUS STRUCTURES: Degenerative changes noted in the spine. IMPRESSION: 1. Large hematoma with hematocrit level noted in the right-sided retroperitoneal region posterolateral to the psoas muscle along the abdominal wall. At its most consolidated portion of the hematoma measures 12 x 8.6 x 18 cm. Hematoma stranding and surrounding edema extend to the level of the diaphragm superiorly and into the pelvis more inferiorly. Stranding and small amount of ascites. 2. Status post right hemicolectomy with ileocolic anastomosis at the level of the transverse colon. Multiple fluid-filled and dilated small bowel loops noted in the upper to mid abdomen with zone of transition noted along the right lateral abdominal wall anterior to the hematoma. Although findings may be partly attributed to ileus, given the collapsed appearance of the large bowel loops differential possibility also includes partial obstruction. 3. Interval increase in size of multiple enlarged mesenteric lymph nodes. Larger lymph nodes measure greater than 1 cm in short axis. 4. Bilateral pleural effusions with adjacent compression atelectasis, right greater than left. Findings were discussed with Dr. Chavez at 8:54 AM on 12/20/2017.
--- NOTE | 2017-12-20 11:21 | PN- General Surgery ---
Surgical Brief Attending Note Brief Attending Note: Overnight events noted. Patient developed acute hemorrhagic shock related to anticoagulation for PE. CT shows significant retroperitoneal bleed at surgical resection site with findings consistent with active/recent bleeding. Images were reviewed with radiologist, no contrast blush suggest continued arterial bleed. Patient needs aggressive blood replacement as there is evidence of ongoing hemodynamic instability. Heparin is on hold and definitely. He will need IVC filter to prevent recurrent pulmonary embolism.
--- NOTE | 2017-12-20 14:23 | ULTRASOUND REPORT ---
EXAMINATION: 1. Inferior Venocavogram 2. Placement of Retrievable IVC filter under sonographic and fluoroscopic guidance CLINICAL INFORMATION: 72-year-old male status post hemicolectomy with retroperitoneal hematoma. Patient has PE and bilateral DVT. IVC filter requested. COMPARISON: CT abdomen pelvis same day ACCESS: Right common femoral vein. INTERVENTIONAL RADIOLOGIST: Himanshu Millan M.D. SEDATION: Local 1% Lidocaine. Moderate sedation was not required for today's procedure. ULTRASOUND: Ultrasound was used to identify the right common femoral vein. The right common femoral vein was confirmed to be patent and real time imaging confirmed needle access into the right common femoral vein. An image was saved for permanent recording in PACS. FLUOROSCOPY TIME: 1.8 minutes DOSE AREA PRODUCT: 18 Gy-cm2 (woodward-centimeter squared) CONTRAST: 35 mL Optiray 320 PROCEDURE IN DETAIL: Informed consent was obtained from the patient and his prior to the procedure. During this process, the procedure and potential alternatives was explained, along with the intended outcome and benefits. The risks of the procedure, as well as the risk of not doing the procedure, were discussed. The patient and his were given the opportunity to ask questions regarding the procedure and appeared competent to make medical decisions. A signed consent form which documents this discussion was placed in the medical record. The signed the consent form although the patient also verbally consented for the procedure. The patient was placed on the fluoroscopic table in the procedure room. A final timeout was performed. The right groin was sterilely prepped and draped. Maximum sterile barrier technique was maintained throughout the procedure. A puncture was performed of the right common femoral vein under direct sonographic visualization using a micropuncture kit. The filter introduction sheath was then advanced to the level of the iliac bifurcation over a Bentson wire. An inferior venacavogram was performed which demonstrated a patent, normal caliber IVC without evidence of thrombus or duplication. At this time, the filter introduction sheath was advanced to the level of deployment over the wire. A retrievable IVC filter was then deployed under continuous fluoroscopic visualization. The introduction sheath was removed and hemostasis was obtained at the right femoral venotomy site using manual pressure. A sterile dressing was placed. The patient tolerated the procedure well. There was no evidence complications. IMPRESSION: Successful placement of retrievable IVC filter. PLAN: 1. The patient was stable after the procedure and was transferred back to the ICU. The patient is to keep his right lower extremity straight for approximately 3 hours. 2. The IVC filter may be removed if the high risk period for pulmonary embolus ceases or if systemic anticoagulation can administered without risk of complication. 3. The patient will follow up at the [facility] to assess timing of IVC filter removal if clinically appropriate.
[2017-12-20 15:24] LABS: ABSOLUTE BASOPHIL COUNT 0 /CUMM (0.0-0.2); ABSOLUTE EOSINOPHIL COUNT 0 /CUMM (0.0-0.7); ABSOLUTE LYMPH COUNT 0.9 /CUMM (1.2-3.4); ABSOLUTE MONOCYTE COUNT 0.8 /CUMM (0.10-0.60); BASOPHIL % 0.4 % (0.0-2.0); EOSINOPHIL % 0.2 % (0-5); GRANULOCYTE % 81.8 % (42.2-75.2); HEMATOCRIT 28.7 % (42-52); MEAN CORPUSCULAR HGB 29.1 PG (27.0-31.0); MEAN CORPUSCULAR HGB CONC 32.8 G/DL (33.0-37.0); MEAN CORPUSCULAR VOLUME 88.7 FL (80.0-94.0); MEAN PLATELET VOLUME 8.4 FL (7.4-10.4); PLATELET COUNT 228 /CUMM (130-400); RBC DISTRIBUTION WIDTH 23.4 % (11.5-14.5); RED BLOOD CELL CT 3.23 /CUMM (4.70-6.10); WHITE BLOOD CELL COUNT 9.7 /CUMM (4.8-10.8)
[2017-12-20 16:00] VITALS: BP 104/60
[2017-12-20 20:00] VITALS: BP 100/60
[2017-12-20 21:15] LABS: ABSOLUTE BASOPHIL COUNT 0 /CUMM (0.0-0.2); ABSOLUTE EOSINOPHIL COUNT 0 /CUMM (0.0-0.7); ABSOLUTE GRANULOCYTE CT 7.9 /CUMM (1.4-6.5); ABSOLUTE LYMPH COUNT 0.9 /CUMM (1.2-3.4); ABSOLUTE MONOCYTE COUNT 0.8 /CUMM (0.10-0.60); BASOPHIL % 0.2 % (0.0-2.0); EOSINOPHIL % 0.2 % (0-5); GRANULOCYTE % 81.5 % (42.2-75.2); HEMATOCRIT 29.2 % (42-52); MEAN CORPUSCULAR HGB 29.2 PG (27.0-31.0); MEAN CORPUSCULAR HGB CONC 33.5 G/DL (33.0-37.0); MEAN PLATELET VOLUME 8.4 FL (7.4-10.4); PLATELET COUNT 220 /CUMM (130-400); RBC DISTRIBUTION WIDTH 23.4 % (11.5-14.5); RED BLOOD CELL CT 3.35 /CUMM (4.70-6.10); WHITE BLOOD CELL COUNT 9.7 /CUMM (4.8-10.8)
[2017-12-20 22:00] VITALS: BP 92/64
[2017-12-21] VITALS: BP 104/66
[2017-12-21 02:00] VITALS: BP 100/67
[2017-12-21 04:00] VITALS: BP 96/58
[2017-12-21 05:05] LABS: ABSOLUTE BASOPHIL COUNT 0 /CUMM (0.0-0.2); ABSOLUTE EOSINOPHIL COUNT 0.1 /CUMM (0.0-0.7); ABSOLUTE GRANULOCYTE CT 6.9 /CUMM (1.4-6.5); ABSOLUTE LYMPH COUNT 1.1 /CUMM (1.2-3.4); ABSOLUTE MONOCYTE COUNT 0.9 /CUMM (0.10-0.60); BASOPHIL % 0.2 % (0.0-2.0); EOSINOPHIL % 0.6 % (0-5); GRANULOCYTE % 76.7 % (42.2-75.2); HEMATOCRIT 28.4 % (42-52); MEAN CORPUSCULAR HGB 28.9 PG (27.0-31.0); MEAN CORPUSCULAR HGB CONC 32.6 G/DL (33.0-37.0); MEAN CORPUSCULAR VOLUME 88.7 FL (80.0-94.0); MEAN PLATELET VOLUME 8.5 FL (7.4-10.4); PLATELET COUNT 211 /CUMM (130-400); RBC DISTRIBUTION WIDTH 23.6 % (11.5-14.5)
--- NOTE | 2017-12-21 05:25 | PN- General Surgery ---
See Addendum Subjective Subjective: No acute events overnight. Remains on 7mcg of levophed with BP in the high 90s/ low 100s. He is arousable and complains of moderate amount of right flank pain with any major movment or palpation. Continues to be on high flow nasal canual to maitain sats. No flatus or BM per patient. Denies cp, sob, n/v, f/c. Objective Vital Signs and I&Os Vital Signs Date Time Temp Pulse Resp B/P B/P Pulse O2 O2 Flow FiO2 Mean Ox Delivery Rate 12/21 0400 99.2 96 26 96/58 12/21 0400 93 Nasal 60% Cannula 12/21 0236 98 100/64 12/21 0200 98.8 102 26 100/67 12/21 0000 98.8 98 28 104/66 12/21 0000 98.8 98 28 10466 93 Nasal 60% Cannula 12/21 0000 94 Nasal 60% Cannula 12/20 2234 92 Nasal 60% Cannula 12/20 2200 99.0 102 29 92/64 12/21 1999 99.0 100 20 100/60 12/20 2000 97 Nasal 65% Cannula 12/20 1942 94 Nasal 60% Cannula 12/20 1702 90 90/50 12/20 1630 95 Nasal 60% Cannula 12/20 1600 97 Nasal 60% Cannula 12/20 1600 99.0 100 28 104/60 97 Nasal 60% Cannula 12/20 1303 95 Nasal 60% Cannula 12/20 1200 95 Nasal 60% Cannula 12/20 0900 97 Nasal 70% Cannula 12/20 0838 89 126/70 12/20 0800 96 Nasal 70% Cannula 12/20 0800 99.0 80 30 80/50 94 Nasal 70% Cannula 12/20 0633 90 68/0 12/20 0550 92 Nasal 70% Cannula Intake & Output 12/21 0800 12/21 0000 12/20 1600 12/20 0800 12/20 0000 12/19 1600 Intake Total 1410 1651 2695 1602 352 Output Total 500 760 250 300 400 Balance 779 260 8843 1302 -48 Intake, IV 1410 1651 2695 1602 252 Intake, Oral 100 Number 0 1 Bowel Movements Output, 100 300 100 100 Gastric Drainage Output, Urine 400 460 150 200 400 Physical Exam: General: sleeping upon arrival, laying supine in bed, AAOx3, NAD CV: tachycardic Pulm: decresed effort with some bilateral crackles Abdomen: midline surgical wound well aproximated with taisha, abdomen distended , right flank pain with palpation, +BS, no guarding Extremities: 1-2 edema, feet are warm Neck: Right IJ in place Current Medications: Current Medications Sig/Thai Start time Last Medication Dose Route Stop Time Status Admin Acetaminophen 1,000 MG Q6P PRN 12/11 1730 AC 12/20 IV 0408 Escitalopram Oxalate 10 MG DAILY 12/12 0900 AC 12/20 PO 1400 Heparin Sodium/ 25,000 UNIT Q24H 12/19 0545 DC 12/19 Dextrose IV 2159 Dextrose/Water 500 ML Ioversol 0 .STK-MED ONE 12/20 1101 DC IV Lidocaine 0 .STK-MED ONE 12/20 1101 DC .ROUTE Lorazepam 1 MG ONCE ONE 12/20 2030 DC 12/20 IV 12/20 2031 2100 Lorazepam 0 Q1P PRN 12/13 0815 DC 12/15 IV 0021 Magnesium Sulfate 1 GM ONCE ONE 12/20 1015 DC 12/20 Dextrose/Water 100 ML IV 12/20 1414 1200 Melatonin 5 MG AT BEDTIME PRN 12/15 2045 AC 12/15 PO 2139 Morphine Sulfate 2 MG Q2P PRN 12/14 1345 AC 12/21 IV 0029 Norepinephrine 4 MG Q8H 12/20 1700 AC 12/21 Sodium Chloride 250 ML IV 0236 Norepinephrine 4 MG .STK-MED ONE 12/20 0816 DC IV 12/20 0817 Norepinephrine 4 MG .STK-MED ONE 12/20 0616 DC IV 12/20 0617 Norepinephrine 4 MG Q24H 12/20 0545 DC 12/20 Sodium Chloride 250 ML IV 12/20 1700 0838 Ondansetron HCl 4 MG Q6P PRN 12/11 1730 AC 12/15 IV 0728 Pantoprazole Sodium 40 MG DAILY 12/16 0900 AC 12/20 IV 0900 Phenol 2 SPRAY Q2P PRN 12/14 2345 AC EXT Potassium Chloride 40 MEQ .STK-MED ONE 12/20 1810 DC IV 12/20 1811 Potassium Chloride 40 MEQ Q6H 12/20 0145 AC 12/20 Dextrose/Sodium 1,000 ML IV 2236 Chloride Potassium Phosphate 15 mMol ONE ONE 12/20 1015 DC 12/20 Dextrose/Water 250 ML IV 12/20 1419 1300 Sodium Chloride 1,000 ML BOLUS ONE 12/20 0545 DC 12/20 IV 12/20 0644 0543 Sodium Chloride 1,000 ML BOLUS ONE 12/20 0445 DC 12/20 IV 12/20 0644 0444 Results Last 48 Hours of Labs: Laboratory Tests 12/21 Chemistry Sodium (137 - 145 mmol/L) 138 Potassium (3.5 - 5.1 mmol/L) 4.3 Chloride (98 - 107 mmol/L) 110 H Carbon Dioxide (22 - 30 mmol/L) 21 L Anion Gap (5 - 16) 7 BUN (9 - 20 mg/dL) 8 L Creatinine (0.7 - 1.2 mg/dL) 0.8 Estimated GFR (>60 ml/min) > 60 Glucose (65 - 99 mg/dL) 135 H Calcium (8.4 - 10.2 mg/dL) 7.3 L Phosphorus (2.5 - 4.5 mg/dL) 2.2 L Magnesium (1.6 - 2.3 mg/dL) 2.1 Total Bilirubin (0.2 - 1.3 mg/dL) 1.3 AST (17 - 59 U/L) 14 L ALT (21 - 72 U/L) 26 Albumin (3.5 - 5.0 g/dL) 2.4 L Hematology CBC w Diff NO MAN DIFF REQ NO MAN DIFF REQ WBC (4.8 - 10.8 /CUMM) 9.0 9.7 RBC (4.70 - 6.10 /CUMM) 3.20 L 3.35 L Hgb (14.0 - 18.0 G/DL) 9.3 L 9.8 L Hct (42 - 52 %) 28.4 L 29.2 L MCV (80.0 - 94.0 FL) 88.7 87.0 MCH (27.0 - 31.0 PG) 28.9 29.2 MCHC (33.0 - 37.0 G/DL) 32.6 L 33.5 RDW (11.5 - 14.5 %) 23.6 H 23.4 H Plt Count (130 - 400 /CUMM) 211 220 MPV (7.4 - 10.4 FL) 8.5 8.4 Gran % (42.2 - 75.2 %) 76.7 H 81.5 H Lymphocytes % (20.5 - 51.1 %) 12.5 L 9.4 L Monocytes % (1.7 - 9.3 %) 10.0 H 8.7 Eosinophils % (0 - 5 %) 0.6 0.2 Basophils % (0.0 - 2.0 %) 0.2 0.2 Absolute Granulocytes (1.4 - 6.5 /CUMM) 6.9 H 7.9 H Absolute Lymphocytes (1.2 - 3.4 /CUMM) 1.1 L 0.9 L Absolute Monocytes (0.10 - 0.60 /CUMM) 0.9 H 0.8 H Absolute Eosinophils (0.0 - 0.7 /CUMM) 0.1 0 Absolute Basophils (0.0 - 0.2 /CUMM) 0 0 12/20 12/20 12/20 1345 0930 0549 Chemistry Lactic Acid (0.7 - 2.1 mmol/L) 0.6 L Coagulation APTT Cancelled Hematology CBC w Diff NO MAN DIFF REQ WBC (4.8 - 10.8 /CUMM) 9.7 RBC (4.70 - 6.10 /CUMM) 3.23 L Hgb (14.0 - 18.0 G/DL) 9.4 L Hct (42 - 52 %) 28.7 L MCV (80.0 - 94.0 FL) 88.7 MCH (27.0 - 31.0 PG) 29.1 MCHC (33.0 - 37.0 G/DL) 32.8 L RDW (11.5 - 14.5 %) 23.4 H Plt Count (130 - 400 /CUMM) 228 MPV (7.4 - 10.4 FL) 8.4 Gran % (42.2 - 75.2 %) 81.8 H Lymphocytes % (20.5 - 51.1 %) 9.1 L Monocytes % (1.7 - 9.3 %) 8.5 Eosinophils % (0 - 5 %) 0.2 Basophils % (0.0 - 2.0 %) 0.4 Absolute Granulocytes (1.4 - 6.5 /CUMM) 8.0 H Absolute Lymphocytes (1.2 - 3.4 /CUMM) 0.9 L Absolute Monocytes (0.10 - 0.60 /CUMM) 0.8 H Absolute Eosinophils (0.0 - 0.7 /CUMM) 0 Absolute Basophils (0.0 - 0.2 /CUMM) 0 12/20 12/20 0445 0026 Chemistry Sodium (137 - 145 mmol/L) 137 141 Potassium (3.5 - 5.1 mmol/L) 3.6 2.9 *L Chloride (98 - 107 mmol/L) 107 110 H Carbon Dioxide (22 - 30 mmol/L) 21 L 21 L Anion Gap (5 - 16) 9 10 BUN (9 - 20 mg/dL) 11 9 Creatinine (0.7 - 1.2 mg/dL) 0.8 0.8 Estimated GFR (>60 ml/min) > 60 > 60 Glucose (65 - 99 mg/dL) 125 H 118 H Calcium (8.4 - 10.2 mg/dL) 7.2 L 6.6 L Phosphorus (2.5 - 4.5 mg/dL) 3.3 3.0 Magnesium (1.6 - 2.3 mg/dL) 1.8 1.8 Total Bilirubin (0.2 - 1.3 mg/dL) 0.7 0.6 AST (17 - 59 U/L) 15 L 13 L ALT (21 - 72 U/L) 31 28 Troponin I (<0.11 ng/ml) 0.10 [id number] Pept (<125 pg/mL) 2260 H Albumin (3.5 - 5.0 g/dL) 2.4 L 2.2 L Hematology CBC w Diff NO MAN DIFF REQ NO MAN DIFF REQ WBC (4.8 - 10.8 /CUMM) 8.4 7.4 RBC (4.70 - 6.10 /CUMM) 2.98 L 3.20 L Hgb (14.0 - 18.0 G/DL) 8.9 L 9.6 L Hct (42 - 52 %) 26.9 L 28.4 L MCV (80.0 - 94.0 FL) 90.2 88.7 MCH (27.0 - 31.0 PG) 29.7 29.9 MCHC (33.0 - 37.0 G/DL) 33.0 33.7 RDW (11.5 - 14.5 %) 23.7 H 24.0 H Plt Count (130 - 400 /CUMM) 214 209 MPV (7.4 - 10.4 FL) 8.3 8.0 Gran % (42.2 - 75.2 %) 81.2 H 80.2 H Lymphocytes % (20.5 - 51.1 %) 10.8 L 12.9 L Monocytes % (1.7 - 9.3 %) 7.6 5.9 Eosinophils % (0 - 5 %) 0.3 0.9 Basophils % (0.0 - 2.0 %) 0.1 0.1 Absolute Granulocytes (1.4 - 6.5 /CUMM) 6.8 H 6.0 Absolute Lymphocytes (1.2 - 3.4 /CUMM) 0.9 L 1.0 L Absolute Monocytes (0.10 - 0.60 /CUMM) 0.6 0.4 Absolute Eosinophils (0.0 - 0.7 /CUMM) 0 0.1 Absolute Basophils (0.0 - 0.2 /CUMM) 0 0 12/19 12/19 12/19 12/19 12/19 2143 1600 1230 UNK 0820 Chemistry Sodium Cancelled Cancelled Potassium Cancelled Cancelled Chloride Cancelled Cancelled Carbon Dioxide Cancelled Cancelled Anion Gap Cancelled Cancelled BUN Cancelled Cancelled Creatinine Cancelled Cancelled Glucose Cancelled Cancelled Calcium Cancelled Cancelled Phosphorus Cancelled Cancelled Magnesium Cancelled Cancelled Total Bilirubin Cancelled Cancelled AST Cancelled Cancelled ALT Cancelled Cancelled Troponin I (<0.11 ng/ml) 0.11 *H 0.17 *H Albumin Cancelled Cancelled Coagulation APTT (25 - 37 SEC) 85 H 96 H 12/19 12/19 12/19 0818 0817 0815 Chemistry Sodium (137 - 145 mmol/L) Cancelled 142 Potassium (3.5 - 5.1 mmol/L) Cancelled 3.8 Chloride (98 - 107 mmol/L) Cancelled 105 Carbon Dioxide (22 - 30 mmol/L) Cancelled 27 Anion Gap (5 - 16) Cancelled 11 BUN (9 - 20 mg/dL) Cancelled 10 Creatinine (0.7 - 1.2 mg/dL) Cancelled 1.0 Estimated GFR (>60 ml/min) > 60 Glucose (65 - 99 mg/dL) Cancelled 130 H Calcium (8.4 - 10.2 mg/dL) Cancelled 8.3 L Phosphorus (2.5 - 4.5 mg/dL) Cancelled Cancelled 3.5 Magnesium (1.6 - 2.3 mg/dL) Cancelled 1.8 Total Bilirubin (0.2 - 1.3 mg/dL) Cancelled 0.6 AST (17 - 59 U/L) Cancelled 21 ALT (21 - 72 U/L) Cancelled 32 Troponin I (<0.11 ng/ml) 0.26 *H Albumin (3.5 - 5.0 g/dL) Cancelled 3.1 L TSH (0.270 - 4.200 uIU/mL) 0.691 Coagulation APTT (25 - 37 SEC) 69 H Hematology CBC w Diff NO MAN DIFF REQ WBC (4.8 - 10.8 /CUMM) 7.5 RBC (4.70 - 6.10 /CUMM) 4.17 L Hgb (14.0 - 18.0 G/DL) 12.4 L Hct (42 - 52 %) 37.2 L MCV (80.0 - 94.0 FL) 89.3 MCH (27.0 - 31.0 PG) 29.7 MCHC (33.0 - 37.0 G/DL) 33.2 RDW (11.5 - 14.5 %) 23.6 H Plt Count (130 - 400 /CUMM) 231 MPV (7.4 - 10.4 FL) 7.8 Gran % (42.2 - 75.2 %) 77.4 H Lymphocytes % (20.5 - 51.1 %) 13.9 L Monocytes % (1.7 - 9.3 %) 7.7 Eosinophils % (0 - 5 %) 0.9 Basophils % (0.0 - 2.0 %) 0.1 Absolute Granulocytes (1.4 - 6.5 /CUMM) 5.8 Absolute Lymphocytes (1.2 - 3.4 /CUMM) 1.0 L Absolute Monocytes (0.10 - 0.60 /CUMM) 0.6 Absolute Eosinophils (0.0 - 0.7 /CUMM) 0.1 Absolute Basophils (0.0 - 0.2 /CUMM) 0 / 0600 Chemistry Sodium Cancelled Potassium Cancelled Chloride Cancelled Carbon Dioxide Cancelled Anion Gap Cancelled BUN Cancelled Creatinine Cancelled BUN/Creatinine Ratio Cancelled Assessment/Plan Assessment/Plan POD#10 s/p right hemicolectomy. Post op course complicated with hemorrhagic shock 2/2 theraputic heparin for PE now with retroperiteal bleed requiring pressors. Keep MAPs > 65 continue NGT, npo, ivf. Awaiting bowel function return hold heparin drip, IVC filter placed yesterday cont tele monitoring Cont supplemental O2 Pain regimen prn Home meds on board GI/DVT ppx on board Encourage IS d/w Dr. Squires and Dr. Almeida Core Measures Venous Thromboembolism VTE Risk Factors Surgery No Mechanical VTE Prophylaxis d/t N/A MechProphylax Ordered No VTE Pharm Prophylaxis d/t NA PharmProphylax ordered
[2017-12-21 06:00] VITALS: BP 108/66
[2017-12-21 08:00] VITALS: BP 101/65
--- NOTE | 2017-12-21 08:11 | PN- Resident CRCU ---
Radha MURDOCK,[facility] 12/21/17 0810: Subjective HPI/CRCU Issues: # Hypovolemic Shock on Levophed # Retroperitoneal Hematoma # Acute hypoxic respiratory failure secondary to acute pulmonary embolism. # Bilateral lower extremity DVT # Nonsustained ventricular tachycardia. # Postop day 8 following open right hemicolectomy for colorectal cancer. # Abdominal aortic aneurysm. 6 cm in size. # SMV thrombus. 24 Hour Events: Patient states he was able to sleep very well last night for the first time since his surgery. His only complaint is pain in his right flank which is sharp, non radiating and 8/10 in intensity without any associated nausea or vomiting. Blood pressure continues to be borderline, requiring pressors. H&H remains stable. RIJ in place Day 2 Arndt catheter Day 2 Objective Exam General Appearance: well developed/nourished, no apparent distress, alert, awake Head: atraumatic, normal appearance Respiratory: normal breath sounds, chest non-tender, crackles (Bilateral lung bases) Cardiovascular: regular rate/rhythm Gastrointestinal: distention, tenderness (right flank ), Tense Extremities: normal inspection, no edema Cranial Nerves: normal hearing, normal speech Current Medications: Current Medications Sig/Thai Start time Last Medication Dose Route Stop Time Status Admin Acetaminophen 1,000 MG Q6P PRN 12/11 1730 AC 12/20 IV 0408 Dextrose/Sodium 1,000 ML Q6H 12/21 0845 UNVr 12/21 Chloride IV 0847 Escitalopram Oxalate 10 MG DAILY 12/12 0900 AC 12/21 PO 0848 Heparin Sodium/ 25,000 UNIT Q24H 12/19 0545 DC 12/19 Dextrose IV 2159 Dextrose/Water 500 ML Ioversol 0 .STK-MED ONE 12/20 1101 DC IV Lidocaine 0 .STK-MED ONE 12/20 1101 DC .ROUTE Lorazepam 1 MG ONCE ONE 12/20 2030 DC 12/20 IV 12/20 203 2100 Magnesium Sulfate 1 GM ONCE ONE 12/20 1015 DC 12/20 Dextrose/Water 100 ML IV 12/20 1414 1200 Melatonin 5 MG AT BEDTIME PRN 12/15 2045 AC 12/15 PO 2139 Morphine Sulfate 2 MG Q2P PRN 12/14 1345 AC 12/21 IV 0744 Norepinephrine 4 MG .STK-MED ONE 12/20 2151 DC IV 12/20 2152 Norepinephrine 4 MG Q8H 12/20 1700 AC 12/21 Sodium Chloride 250 ML IV 0236 Norepinephrine 4 MG Q24H 12/20 0545 DC 12/20 Sodium Chloride 250 ML IV 12/20 1700 0838 Ondansetron HCl 4 MG Q6P PRN 12/11 1730 AC 12/15 IV 0728 Pantoprazole Sodium 40 MG DAILY 12/16 0900 AC 12/21 IV 0847 Phenol 2 SPRAY Q2P PRN 12/14 2345 AC EXT Phosphate 250 MG PC AND AT BEDTIME 12/21 0900 UNVr 12/21 PO 12/22 1301 0847 Potassium Chloride 40 MEQ .STK-MED ONE 12/20 1810 DC IV 12/20 1811 Potassium Chloride 40 MEQ Q6H 12/20 0145 DC 12/21 Dextrose/Sodium 1,000 ML IV 0736 Chloride Potassium Phosphate 15 mMol ONE ONE 12/20 1015 DC 12/20 Dextrose/Water 250 ML IV 12/20 1419 1300 Impression/Plan Impression/Problem List Impression: Mr. 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 Rapid response was called this morning after patient was found to be tachycardic with heart rate in 120s, hypotensive with blood pressure 80/Doppler and O2 sats in the 70s improved to 75% on nonrebreather mask and is found to have multiple bilateral pulmonary emboli on CTA. Patient remians in ICU for the management of following issues; # Hypovolemic Shock on Pressors # Retroperitoneal Hematoma # Acute hypoxic respiratory failure secondary to acute pulmonary embolism. # Bilateral lower extremity DVT # Nonsustained ventricular tachycardia. # Postop day 8 following open right hemicolectomy for colorectal cancer. # Abdominal aortic aneurysm. 6 cm in size. # SMV thrombus. Plan Respiratory; 1. Bilateral Pulmonary emboli; Patient had a recent hemicolectomy done for cecal adenocarcinoma, and has been refusing his subcutaneous heparin for DVT prophylaxis per the nurses. Bilateral lower extremity Doppler was done after the patient was transferred to ICU showing bilateral nonocclusive popliteal vein thrombosis. Patient also has baseline abnormal EKG changes but second set of troponin came back elevated to 0.26. Echocardiogram was obtained showing normal ejection fraction with no regional wall motion abnormalities and stage I diastolic dysfunction. Right ventricular systolic pressure estimated to be elevated at 45- 50 mmHg. ProBNP 2260. Vascular surgery was consulted regarding possible ivc filter vs intervention did not recommend any surgical intervention at the time, recommended continuing IV heparin. - IV heparin drip on hold because of retroperitoneal hematoma - IVC filter placed by IR on 12/21/17 - Appreciate vascular surgery recommendations - Vitals every hour - Continue supplemental oxygen as needed keep O2 sats above 90%. - Appreciate cardiology recommendations. Infectious; None Cardiology; 1. Nonsustained V. tach; patient had a 20 beat run of V. tach earlier this morning. White fluids remained stable at the time. Echocardiogram normal. - Monitor electrolytes a and replete accordingly(keep mag > 2,K and phosphorus > 4) - F/U Cardiology recommendations. 2. Elevated Troponins; Likely demand ischemia. No new EKG changes. Patient has baseline abnormal EKG changes with ST depressions in lateral leads. Echocardiogram was obtained showing normal ejection fraction with no regional wall motion abnormalities and stage I diastolic dysfunction. - Appreciate cardiology recommendations. 3. Hypovolemic Shock; Patient's blood pressure dropped down to 70/Doppler on , received almost 3 L of IV fluids without any improvement. Central line was placed by the surgical team and patient was started on Levophed. CBC was also obtained at that time showing a significant drop in hemoglobin from 12.[address] abdomen and Pelvis showed large right-sided retroperitoneal hematoma. - Blood pressure borderline, Continue Levophed - H&H 9.3/28.4 s/p 2 units blood transfusions. Spoke with the surgical PA, recommends getting a CXR, if no fluid overload and the patinet can tolerate we can transfuse another unit of PRBC. - IV heparin on hold. - Continue to monitor vitals. - f/u Surgery recommendations. 3. ?? Mesenteric vein thrombosis; - IV heparin on hold. - f/u vascular surgery recommendations 4. Ascending Aortic Aneurysm; - Appreciate cardiology recommendations; Can be managed as an outpatient. Heme; 1. Anemia; - See above Metabolic; - Continue to monitor creatinine and electrolytes. Alimentary; 1. Colon cancer status post hemicolectomy(12/11); NG tube in place. - Nothing by mouth - Continue gentle IV fluids. Neurology; None DVT Prophylaxis; ALPS only, Heparin on hold for Retroperitoneal Hematoma Patient is Full Code. Problem List: 1. Malignant neoplasm of cecum 2. Multiple pulmonary emboli Pain Ratin Pain Location: Right Flank Pain Goal: Pain 7 or less Pain Plan: Pain Patwhay Tomorrow's Labs & Rationales: CBC ICU bundle Plan DVT/Prophylaxis: mechanical Aryan Almeida MD 12/21/17 0945: Objective Vital Signs & I&O Last 8 Hrs of Vitals and I&O: chart Attending MD Review Statement Attending Sign Off Attending Cosign Statement: I have: examined this patient, reviewed aval EMR data, personally reviewd images, discussd w/resident/PA/[employer], discussed mgmt plan w/[employer], discussed mgmt plan w/CM, discussed mgmt plan w/pt, agreed w/resident/PA/[employer], amended to note. Other Findings: Impression 72 year old man * multiple bilateral pulmonary emboli (submassive) and DVT * no further vtach * Stage 3C colon cancer s/p radical right hemicolectomy * right sided retroperitoneal hematoma Plan Respiratory/Heme/CVS -high flow o2, spo2 goal >92% -IVC filter placed (retrievable) 12/20/2017 -a/c held for hematoma -vascular surgery consultation appreciated -f/u cardiology -continue to follow surgical plan regarding hematoma -give 1 more unit of blood ID -monitor wbc, fevers Metabolic -ins/outs -creatinine/electrolyte monitoring Alimentary -NPO Neuro -no acute issues Discussed with patient, housestaff and surgical team TTS 40 min
--- NOTE | 2017-12-21 09:18 | RADIOLOGY REPORT ---
EXAMINATION: CHEST 1 VIEW CLINICAL INFORMATION: Hypovolemic shock. COMPARISON: Multiple prior exams are reviewed. The most recent is from 12/20/2017. TECHNIQUE: An AP view of the chest is provided. FINDINGS: The cardiac silhouette is stable. The enteric tube and right central venous line are in unchanged position. There is mild bibasilar atelectasis. There are neither pleural effusions nor pneumothoraces. The osseous structures are stable. IMPRESSION: Mild bibasilar atelectasis. Enteric tube and right central venous line in unchanged position.
--- NOTE | 2017-12-21 11:01 | PN- Cardiology ---
Subjective Subjective: The patient is sitting upright in bed, mild respiratory distress. He denies any specific complaints however. Stable post IVC filter. Remains on low-dose pressors. Objective Vital Signs and I&Os Vital Signs Date Time Temp Pulse Resp B/P B/P Pulse O2 O2 Flow FiO2 Mean Ox Delivery Rate 12/21 0834 93 Nasal 60% Cannula 12/21 0800 93 Nasal 60% Cannula 12/21 0800 98.6 94 18 101/65 93 Nasal 60% Cannula 12/21 0600 99.2 96 26 108/66 12/21 0400 99.2 96 26 96/58 12/21 0400 93 Nasal 60% Cannula 12/21 0236 98 100/64 12/21 0200 98.8 102 26 100/67 12/21 0000 98.8 98 28 104/66 12/21 0000 98.8 98 28 10466 93 Nasal 60% Cannula 12/21 0000 94 Nasal 60% Cannula 12/20 2234 92 Nasal 60% Cannula 12/20 2200 99.0 102 29 92/64 12/21 1999 99.0 100 20 100/60 12/20 2000 97 Nasal 65% Cannula 12/20 1942 94 Nasal 60% Cannula 12/20 1702 90 90/50 12/20 1630 95 Nasal 60% Cannula 12/20 1600 97 Nasal 60% Cannula 12/20 1600 99.0 100 28 104/60 97 Nasal 60% Cannula 12/20 1303 95 Nasal 60% Cannula 12/20 1200 95 Nasal 60% Cannula Intake & Output 12/21 1600 12/21 0800 12/21 0000 12/20 1600 12/20 0800 12/20 0000 Intake Total 1299 1410 1651 2695 1602 Output Total 500 500 760 250 300 Balance 799 440 174 5958 1302 Intake, IV 1299 1410 1651 2695 1602 Number 0 Bowel Movements Output, 50 100 300 100 100 Gastric Drainage Output, Urine 450 400 460 150 200 Physical Exam: General Appearance: well developed/nourished, elderly male, alert, awake, oriented, mild respiratory distress Head: normal HEENT: Normal Neck: supple, JVP normal, right IJ line in place, carotid upstrokes normal bilaterally, no masses or thyromegaly Respiratory: chest non-tender, scattered rhonchi Cardiovascular: regular rate/rhythm, normal S1, S2, 1-2/6 systolic murmur Abdomen: normal bowel sounds, soft, non-tender Extremities: normal inspection, no edema Vascular: Pulses are 2+ and equal bilaterally Neurologic: Grossly normal/nonfocal Current Medications: Current Medications Sig/Thai Start time Last Medication Dose Route Stop Time Status Admin Acetaminophen 1,000 MG Q6P PRN 12/11 1730 AC 12/20 IV 0408 Dextrose/Sodium 1,000 ML Q6H 12/21 0845 12/21 Chloride IV 0847 Escitalopram Oxalate 10 MG DAILY 12/12 0900 12/21 PO 0848 Ioversol 0 .STK-MED ONE 12/20 1101 DC IV Lidocaine 0 .STK-MED ONE 12/20 1101 DC .ROUTE Lorazepam 1 MG ONCE ONE 12/20 2030 DC 12/20 IV 12/20 2031 2100 Magnesium Sulfate 1 GM ONCE ONE 12/20 1015 DC 12/20 Dextrose/Water 100 ML IV 12/20 1414 1200 Melatonin 5 MG AT BEDTIME PRN 12/15 2045 AC 12/15 PO 2139 Morphine Sulfate 2 MG Q2P PRN 12/14 1345 AC 12/21 IV 1027 Norepinephrine 4 MG .STK-MED ONE 12/20 2151 DC IV 12/20 2152 Norepinephrine 4 MG Q8H 12/20 1700 AC 12/21 Sodium Chloride 250 ML IV 0236 Norepinephrine 4 MG Q24H 12/20 0545 DC 12/20 Sodium Chloride 250 ML IV 12/20 1700 0838 Ondansetron HCl 4 MG Q6P PRN 12/11 1730 AC 12/15 IV 0728 Pantoprazole Sodium 40 MG DAILY 12/16 0900 AC 12/21 IV 0847 Phenol 2 SPRAY Q2P PRN 12/14 2345 AC EXT Phosphate 250 MG PC AND AT BEDTIME 12/21 0900 AC 12/21 PO 12/22 1301 0847 Potassium Chloride 40 MEQ .STK-MED ONE 12/20 1810 DC IV 12/20 1811 Potassium Chloride 40 MEQ Q6H 12/20 0145 DC 12/21 Dextrose/Sodium 1,000 ML IV 0736 Chloride Potassium Phosphate 15 mMol ONE ONE 12/20 1015 DC 12/20 Dextrose/Water 250 ML IV 12/20 1419 1300 Results Last 48 Hrs of Labs/Mics: Laboratory Tests 12/21/17 0350: Anion Gap 7, Estimated GFR > 60, Glucose 135 H, Calcium 7.3 L, Phosphorus 2.2 L, Magnesium 2.1, Total Bilirubin 1.3, AST 14 L, ALT 26, Albumin 2.4 L, CBC w Diff NO MAN DIFF REQ, RBC 3.20 L, MCV 88.7, MCH 28.9, MCHC 32.6 L, RDW 23.6 H , MPV 8.5, Gran % 76.7 H, Lymphocytes % 12.5 L, Monocytes % 10.0 H, Eosinophils % 0.6, Basophils % 0.2, Absolute Granulocytes 6.9 H, Absolute Lymphocytes 1.1 L, Absolute Monocytes 0.9 H, Absolute Eosinophils 0.1, Absolute Basophils 0 12/20/172004: CBC w Diff NO MAN DIFF REQ, RBC 3.35 L, MCV 87.0, MCH 29.2, MCHC 33.5, RDW 23.4 H, MPV 8.4, Gran % 81.5 H, Lymphocytes % 9.4 L, Monocytes % 8.7, Eosinophils % 0.2, Basophils % 0.2, Absolute Granulocytes 7.9 H, Absolute Lymphocytes 0.9 L, Absolute Monocytes 0.8 H, Absolute Eosinophils 0, Absolute Basophils 0 12/20/17 1345: CBC w Diff NO MAN DIFF REQ, RBC 3.23 L, MCV 88.7, MCH 29.1, MCHC 32.8 L, RDW 23.4 H, MPV 8.4, Gran % 81.8 H, Lymphocytes % 9.1 L, Monocytes % 8.5, Eosinophils % 0.2, Basophils % 0.4, Absolute Granulocytes 8.0 H, Absolute Lymphocytes 0.9 L, Absolute Monocytes 0.8 H, Absolute Eosinophils 0, Absolute Basophils 0 12/20/17 0930: APTT Cancelled 12/20/17 0549: Lactic Acid 0.6 L 12/20/17 0445: Anion Gap 9, Estimated GFR > 60, Glucose 125 H, Calcium 7.2 L, Phosphorus 3.3, Magnesium 1.8, Total Bilirubin 0.7, AST 15 L, ALT 31, Albumin 2.4 L, CBC w Diff NO MAN DIFF REQ, RBC 2.98 L, MCV 90.2, MCH 29.7, MCHC 33.0, RDW 23.7 H, MPV 8.3, Gran % 81.2 H, Lymphocytes % 10.8 L, Monocytes % 7.6, Eosinophils % 0.3, Basophils % 0.1, Absolute Granulocytes 6.8 H, Absolute Lymphocytes 0.9 L, Absolute Monocytes 0.6, Absolute Eosinophils 0, Absolute Basophils 0 12/20/17 0026: Anion Gap 10, Estimated GFR > 60, Glucose 118 H, Calcium 6.6 L, Phosphorus 3.0 , Magnesium 1.8, Total Bilirubin 0.6, AST 13 L, ALT 28, Troponin I 0.10, Pro-B- Natriuretic Pept 2260 H, Albumin 2.2 L, CBC w Diff NO MAN DIFF REQ, RBC 3.20 L, MCV 88.7, MCH 29.9, MCHC 33.7, RDW 24.0 H, MPV 8.0, Gran % 80.2 H, Lymphocytes % 12.9 L, Monocytes % 5.9, Eosinophils % 0.9, Basophils % 0.1, Absolute Granulocytes 6.0, Absolute Lymphocytes 1.0 L, Absolute Monocytes 0.4, Absolute Eosinophils 0.1, Absolute Basophils 0 12/19/17 2143: Troponin I 0.11 *H, APTT 85 H 12/19/17 1600: Troponin I 0.17 *H 12/19/17 1230: APTT 96 H Assessment/Plan Assessment/Plan Assessment: 1. Hypoxic respiratory failure related to bilateral pulmonary emboli 2. Status post IVC filter 3. Elevated troponin consistent with type II ME 4. Colon cancer, status post recent resection 5. Ascending thoracic aortic aneurysm 6. Large retroperitoneal bleed with associated anemia Recommendations: -For now, continue all supportive care as per the critical care team. -All anticoagulation and antiplatelet agents on hold -Maintain telemetry monitoring for now. Continue telemetry? Yes
--- NOTE | 2017-12-21 14:22 | PN- Cardiology ---
Subjective Subjective: The night was quite eventful, with new onset retroperitoneal hematoma, confirmed on CT scan. 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 Patient is hemodynamically unstable with norepinephrin requirement to maintain adequate pressures, in addition to IV fluids. EKG tracing is unchanged, he does not report chest pain. Objective Vital Signs and I&Os Date Time Temp Pulse Resp B/P B/P Pulse O2 O2 Flow FiO2 Mean Ox Delivery Rate 12/20 0400 95 Nasal 70% Cannula 12/20 0330 94 Nasal 70% Cannula 12/20 0014 96 Nasal 70% Cannula 12/20 0000 94 Nasal 75% Cannula 12/19 2300 99.0 91 29 70/0 94 Nasal 75% Cannula 12/19 2220 94 Nasal 70% Cannula 12/19 2000 96 Nasal 75% Cannula 12/19 1930 95 Nasal 75% Cannula 12/19 1610 95 Nasal 75% Cannula 12/19 1600 94 Nasal 75% Cannula 12/19 1600 98.6 106 22 124/70 94 Nasal 75% Cannula 12/19 1200 94 Nasal 85% Cannula 12/19 0800 99.0 110 30 112/70 94 Nasal 80% Cannula 12/19 0800 94 Nasal 80% Cannula 12/19 0538 98.9 110 36 110/80 92 Non ReBreather Physical Exam: General: sleeping upon arrival, laying supine in bed, AAOx3 CV: tachycardic, Neck: Right IJ in place, no audible murmur, no gallop Pulm: decresed effort with some bilateral crackles Abdomen: midline surgical wound well aproximated with taisha, abdomen distended , right flank pain with palpation, +BS, no guarding Extremities: 1-2 edema, feet are warm Current Medications: Current Medications Sig/Thai Start time Last Medication Dose Route Stop Time Status Admin Acetaminophen 1,000 MG Q6P PRN 12/11 1730 AC 12/20 IV 0408 Dextrose/Sodium 1,000 ML Q6H 12/21 0845 AC 12/21 Chloride IV 0847 Escitalopram Oxalate 10 MG DAILY 12/12 0900 AC 12/21 PO 0848 Lorazepam 1 MG ONCE ONE 12/20 2030 DC 12/20 IV 12/20 2030 2100 Melatonin 5 MG AT BEDTIME PRN 12/15 2044 AC 12/15 PO 213 Morphine Sulfate 2 MG Q2P PRN 12/14 1345 DC 12/21 IV 1236 Norepinephrine 4 MG .STK-MED ONE 12/20 2151 DC IV 12/20 2152 Norepinephrine 4 MG Q8H 12/20 1700 AC 12/21 Sodium Chloride 250 ML IV 1204 Norepinephrine 4 MG Q24H 12/20 0545 DC 12/20 Sodium Chloride 250 ML IV 12/20 1700 0838 Ondansetron HCl 4 MG Q6P PRN 12/11 1730 AC 12/15 IV 0728 Pantoprazole Sodium 40 MG DAILY 12/16 0900 AC 12/21 IV 0847 Phenol 2 SPRAY Q2P PRN 12/14 2345 AC EXT Phosphate 250 MG PC AND AT BEDTIME 12/21 0900 AC 12/21 PO 12/22 1301 1204 Potassium Chloride 40 MEQ .STK-MED ONE 12/20 1810 DC IV 12/20 1811 Potassium Chloride 40 MEQ Q6H 12/20 0145 DC 12/21 Dextrose/Sodium 1,000 ML IV 0736 Chloride Results Last 48 Hrs of Labs/Mics: Laboratory Test 12/20/17 0549: Lactic Acid 0.6 L 12/20/17 0445: Anion Gap 9, Estimated GFR > 60, Glucose 125 H, Calcium 7.2 L, Phosphorus 3.3, Magnesium 1.8, Total Bilirubin 0.7, AST 15 L, ALT 31, Albumin 2.4 L, CBC w Diff NO MAN DIFF REQ, RBC 2.98 L, MCV 90.2, MCH 29.7, MCHC 33.0, RDW 23.7 H, MPV 8.3, Gran % 81.2 H, Lymphocytes % 10.8 L, Monocytes % 7.6, Eosinophils % 0.3, Basophils % 0.1, Absolute Granulocytes 6.8 H, Absolute Lymphocytes 0.9 L, Absolute Monocytes 0.6, Absolute Eosinophils 0, Absolute Basophils 0 12/20/17 0026: Anion Gap 10, Estimated GFR > 60, Glucose 118 H, Calcium 6.6 L, Phosphorus 3.0 , Magnesium 1.8, Total Bilirubin 0.6, AST 13 L, ALT 28, Troponin I 0.10, Pro-B- Natriuretic Pept 2260 H, Albumin 2.2 L, CBC w Diff NO MAN DIFF REQ, RBC 3.20 L, MCV 88.7, MCH 29.9, MCHC 33.7, RDW 24.0 H, MPV 8.0, Gran % 80.2 H, Lymphocytes % 12.9 L, Monocytes % 5.9, Eosinophils % 0.9, Basophils % 0.1, Absolute Granulocytes 6.0, Absolute Lymphocytes 1.0 L, Absolute Monocytes 0.4, Absolute Eosinophils 0.1, Absolute Basophils 0 12/19/17 2143: Troponin I 0.11 *H, APTT 85 H 12/19/17 1600: Troponin I 0.17 *H Assessment/Plan Assessment/Plan Patient with hypertension and stable CAD, PO #7 right hemicolectomy complicated by bilateral proximal pulmonary embolisms as well as lower extremity DVTs, having refused prophylactic sc heparin. Course further complicated by type II NSTEMI due to demand ischemia, and retroperitoneal hemorrhage with hemodynanmic instability requiring norepinephrine drip (low concentration) and stopping heparin. IV fluid rescussitation underway at time of visit, patient having received 2L NS and more fluid prescribed. Definitely requires IVC filter at this point , ICU attending Dr Almeida has discussed this with interventional radiology already. Continue telemetry? Yes
[2017-12-21 16:00] VITALS: BP 90/61
[2017-12-21 17:50] LABS: ABSOLUTE BASOPHIL COUNT 0 /CUMM (0.0-0.2); ABSOLUTE EOSINOPHIL COUNT 0.1 /CUMM (0.0-0.7); ABSOLUTE GRANULOCYTE CT 7.6 /CUMM (1.4-6.5); ABSOLUTE LYMPH COUNT 0.9 /CUMM (1.2-3.4); ABSOLUTE MONOCYTE COUNT 0.8 /CUMM (0.10-0.60); BASOPHIL % 0.3 % (0.0-2.0); EOSINOPHIL % 1.1 % (0-5); GRANULOCYTE % 80.3 % (42.2-75.2); HEMATOCRIT 29.9 % (42-52); MEAN CORPUSCULAR HGB 29.4 PG (27.0-31.0); MEAN CORPUSCULAR HGB CONC 33.2 G/DL (33.0-37.0); MEAN CORPUSCULAR VOLUME 88.5 FL (80.0-94.0); MEAN PLATELET VOLUME 8.5 FL (7.4-10.4); PLATELET COUNT 212 /CUMM (130-400); RBC DISTRIBUTION WIDTH 22.9 % (11.5-14.5); RED BLOOD CELL CT 3.37 /CUMM (4.70-6.10); WHITE BLOOD CELL COUNT 9.5 /CUMM (4.8-10.8)
[2017-12-22] VITALS: BP 96/66
[2017-12-22 05:11] LABS: ABSOLUTE BASOPHIL COUNT 0 /CUMM (0.0-0.2); ABSOLUTE EOSINOPHIL COUNT 0.2 /CUMM (0.0-0.7); ABSOLUTE GRANULOCYTE CT 6.8 /CUMM (1.4-6.5); ABSOLUTE LYMPH COUNT 0.9 /CUMM (1.2-3.4); ABSOLUTE MONOCYTE COUNT 0.6 /CUMM (0.10-0.60); BASOPHIL % 0.1 % (0.0-2.0); EOSINOPHIL % 2.4 % (0-5); GRANULOCYTE % 80.5 % (42.2-75.2); MEAN CORPUSCULAR HGB 29.1 PG (27.0-31.0); MEAN CORPUSCULAR HGB CONC 32.9 G/DL (33.0-37.0); MEAN CORPUSCULAR VOLUME 88.7 FL (80.0-94.0); MEAN PLATELET VOLUME 8.7 FL (7.4-10.4); PLATELET COUNT 214 /CUMM (130-400); RBC DISTRIBUTION WIDTH 22.6 % (11.5-14.5); RED BLOOD CELL CT 3.27 /CUMM (4.70-6.10); WHITE BLOOD CELL COUNT 8.4 /CUMM (4.8-10.8)
--- NOTE | 2017-12-22 06:07 | PN- General Surgery ---
See Addendum Subjective Subjective: feeling better, flank/back pain much improved. no flatus/bm. denies sob/cp. no n/v. requests ngt out. Objective Vital Signs and I&Os Vital Signs overnight: sats low-mid 90s on highflow o2. SBP 90s on levo. HR 80s-90s. Tmax99 Date Time Temp Pulse Resp B/P B/P Pulse O2 O2 Flow FiO2 Mean Ox Delivery Rate 12/22 0401 93 Nasal 65% Cannula 12/22 0400 93 Nasal 65% Cannula 12/22 0050 93 Nasal 65% Cannula 12/22 0000 99.6 92 24 96/66 92 Nasal 65% Cannula 12/22 0000 92 Nasal 65% Cannula 12/21 2300 96 92/54 12/21 2237 92 Nasal 65% Cannula 12/21 2013 95 Nasal 65% Cannula 12/21 2000 94 Nasal 65% Cannula 12/21 1714 93 Nasal 65% Cannula 12/21 1600 92 Nasal 60% Cannula 12/21 1600 99.0 97 21 90/61 91 Nasal 60% Cannula 12/21 1331 92 Nasal 60% Cannula 12/21 1204 101/65 12/21 1200 92 Nasal 60% Cannula 12/21 0834 93 Nasal 60% Cannula 12/21 0800 93 Nasal 60% Cannula 12/21 0800 98.6 94 18 101/65 93 Nasal 60% Cannula 12/21 0600 99.2 96 26 108/66 Intake & Output 12/22 0800 12/22 0000 12/21 1600 12/21 0800 12/21 0000 12/20 1600 Intake Total 1401 1496.6 1299 1410 1651 Output Total 600 550 500 500 760 Balance 801 946.6 799 910 891 Intake, Blood 350 Product Intake, IV 1291 996.6 1299 1410 1651 Intake, Oral 0 Intake, Other 110 150 Output, 150 150 50 100 300 Gastric Drainage Output, Urine 450 400 450 400 460 Physical Exam: gen- nad card-s1s2 pulm- bs throughout, on highflow o2 abd- dist, tympanic, nt, quiet bs, midline taisha cdi ext- calves nt bl NGT- bilious, 150overnight UO- 50-75cc/hr Assessment/Plan Assessment/Plan A- POD11 sp r bridget for colon ca, postop course complicated by bl PEs & DVT, now off hep gtt due to retroperitoneal hematoma, POD2 sp IR IVC filter placement, remains in ICU on highflow o2 and pressor support, though clinically improved per pt. P- medical care per ICU team cont ngt, ivf, npo- await bowel fxn. strict i&Os cont hold hep gtt will dw attending Core Measures Venous Thromboembolism VTE Risk Factors Surgery No Mechanical VTE Prophylaxis d/t N/A MechProphylax Ordered No VTE Pharm Prophylaxis d/t NA PharmProphylax ordered
[2017-12-22 08:00] VITALS: BP 97/63
--- NOTE | 2017-12-22 08:39 | PN- Resident CRCU ---
Jaden MURDOCK,Ramesh 12/22/17 0839: Subjective HPI/CRCU Issues: # Hypovolemic Shock on Levophed now at 3 # Retroperitoneal Hematoma, concerning for any more bleeding # Acute hypoxic respiratory failure secondary to acute pulmonary embolism, not on AC now due to bleeding # Bilateral lower extremity DVT, not on AC now due to bleeding # Nonsustained ventricular tachycardia. # Postop day 11 following open right hemicolectomy (en bloc resection) for colorectal cancer. # Abdominal aortic aneurysm. 6 cm in size. # SMV thrombus. 24 Hour Events: I followed up and examined the patient today. He is resting comfortably in bed, with NG tube in place, and IV Levophed running at 3 mics per minute. He doesn't appear to be in any distress, and offers no complaints. Of note, he did mention that when moving around, sliding in the bed, he has severe back pain. VSS with boderline low BP. No nursing issues reported overnight. Objective Vital Signs & I&O Last 8 Hrs of Vitals and I&O: Vital Signs Date Time Temp Pulse Resp B/P B/P Pulse O2 O2 Flow FiO2 Mean Ox Delivery Rate 12/22 0900 94 Nasal 65% Cannula 12/22 0800 94 Nasal 65% Cannula 12/22 0800 98.6 92 21 97/63 94 Nasal 65% Cannula 12/22 0646 93 Nasal 65% Cannula 12/22 0401 93 Nasal 65% Cannula 12/22 0400 93 Nasal 65% Cannula 12/22 0050 93 Nasal 65% Cannula 12/22 0000 99.6 92 24 96/66 92 Nasal 65% Cannula 12/22 0000 92 Nasal 65% Cannula 12/21 2300 96 92/54 12/21 2237 92 Nasal 65% Cannula 12/21 2013 95 Nasal 65% Cannula 12/21 2000 94 Nasal 65% Cannula 12/21 1714 93 Nasal 65% Cannula 12/21 1600 92 Nasal 60% Cannula 12/21 1600 99.0 97 21 90/61 91 Nasal 60% Cannula 12/21 1331 92 Nasal 60% Cannula 12/21 1204 101/65 12/21 1200 92 Nasal 60% Cannula Exam General Appearance: well developed/nourished, no apparent distress, alert, awake , comfortable Other Physical Findings: Head: atraumatic, normal appearance Respiratory: normal breath sounds, chest non-tender, crackles (Bilateral lung bases) Cardiovascular: regular rate/rhythm Gastrointestinal: distention, tenderness (right flank), bruise + Extremities: normal inspection, no edema Neuro: grossly intact Nutrition Nutrition: NPO Current Medications: Current Medications Sig/Thai Start time Last Medication Dose Route Stop Time Status Admin Acetaminophen 1,000 MG Q6P PRN 12/11 1730 AC 12/20 IV 0408 Dextrose/Sodium 1,000 ML Q6H 12/21 0845 AC 12/22 Chloride IV 0746 Escitalopram Oxalate 10 MG DAILY 12/12 0900 AC 12/22 PO 0900 Lorazepam 0.5 MG ONCE ONE 12/22 0015 DC 12/22 IV 12/22 0016 0015 Melatonin 5 MG AT BEDTIME PRN 12/15 2045 AC 12/15 PO 2139 Morphine Sulfate 2 MG Q4 HRS NEEDED PRN 12/21 1915 AC 12/22 IV 0746 Morphine Sulfate 2 MG Q2P PRN 12/14 1345 DC 12/21 IV 1236 Norepinephrine 4 MG Q22H 12/22 1800 AC Sodium Chloride 250 ML IV Norepinephrine 4 MG Q8H 12/20 1700 AC 12/21 Sodium Chloride 250 ML IV 12/22 1759 2300 Ondansetron HCl 4 MG Q6P PRN 12/11 1730 AC 12/15 IV 0728 Pantoprazole Sodium 40 MG DAILY 12/16 0900 AC 12/22 IV 0900 Phenol 2 SPRAY Q2P PRN 12/14 2345 AC EXT Phosphate 250 MG PC AND AT BEDTIME 12/21 0900 DC 12/21 PO 12/22 1301 2155 Potassium Phosphate 15 mMol ONE ONE 12/22 0700 DC 12/22 Dextrose/Water 250 ML IV 12/22 1104 0901 Impression/Plan Impression/Problem List Impression: 72-year-old male with past medical history significant for hypertension not on any antihypertensives, nonspecific EKG changes, abnormal stress test status post cardiac catheterization admitted under surgical service for right hemicolectomy for recently diagnosed 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 Int he post operative period, he has had an episode of multiple bilateral pulmonary emboli as demonstrated in the CTA. Initially anticoagulated, which is now on hold due to ongoing bleeding (evident from his dropping h/h). Patient remians in ICU for the management of following issues; # Hypovolemic Shock on Pressors, now on Levophed at 3 only, tapering # Retroperitoneal Hematoma # Acute hypoxic respiratory failure secondary to acute pulmonary embolism, NOT on AC due to bleeding # Bilateral lower extremity DVT, NOT on AC due to bleeding # Nonsustained ventricular tachycardia, controlled rate now # Postop day 11 following open right hemicolectomy for colorectal cancer, still on NGT, Surgery following # Abdominal aortic aneurysm. 6 cm in size, stable # SMV thrombus, NOT on AC due to bleeding Plan Respiratory; 1. Bilateral Pulmonary emboli; Patient had a recent hemicolectomy done for cecal adenocarcinoma, and had been refusing his subcutaneous heparin for DVT prophylaxis per the nursing staff. Bilateral lower extremity Doppler was done after the patient was transferred to ICU showing bilateral nonocclusive popliteal vein thrombosis. Patient also has baseline abnormal EKG changes but second set of troponin came back elevated to 0.26. Echocardiogram was obtained showing normal ejection fraction with no regional wall motion abnormalities and stage I diastolic dysfunction. Right ventricular systolic pressure estimated to be elevated at 45- 50 mmHg. ProBNP 2260. Vascular surgery was consulted regarding possible ivc filter vs intervention did not recommend any thrombectomy or TPA given his immediate post-operative period, recommended IVC filter IF Heparin had to be stopped/held. - IV heparin drip on hold because of retroperitoneal hematoma and dropping h/h - IVC filter placed by IR on 12/21/17 - Appreciate vascular surgery recommendations - Vitals every hour - Continue supplemental oxygen as needed keep O2 sats above 90%. - Appreciate cardiology recommendations. Infectious; None Cardiology; 1. Nonsustained V. tach; patient had a 20 beat run of V. tach earlier this morning. White fluids remained stable at the time. Echocardiogram normal. - Monitor electrolytes a and replete accordingly(keep mag > 2,K and phosphorus > 4) - F/U Cardiology recommendations. 2. Elevated Troponins; Likely demand ischemia. No new EKG changes. Patient has baseline abnormal EKG changes with ST depressions in lateral leads. Echocardiogram was obtained showing normal ejection fraction with no regional wall motion abnormalities and stage I diastolic dysfunction. - Appreciate cardiology recommendations. 3. Hypovolemic Shock; Patient's blood pressure dropped down to 70/Doppler on , received almost 3 L of IV fluids without any improvement. Central line was placed by the surgical team and patient was started on Levophed. CBC was also obtained at that time showing a significant drop in hemoglobin from 12.[address] abdomen and Pelvis showed large right-sided retroperitoneal hematoma. - Blood pressure borderline, Continue to taper off Levophed which is at 3 currently - H&H 9.3/28.4 s/p 2 units blood transfusions. Spoke with the surgical PA, recommends getting a CXR, if no fluid overload and the patinet can tolerate we can transfuse another unit of PRBC. - IV heparin on hold. - Continue to monitor vitals. - f/u Surgery recommendations. 3. Mesenteric vein thrombosis; - IV heparin on hold. - f/u vascular surgery recommendations 4. Ascending Aortic Aneurysm; - Appreciate cardiology recommendations; Can be managed as an outpatient. Heme; Anemia: - See above Metabolic; - Continue to monitor creatinine and electrolytes. Alimentary; Colon cancer status post hemicolectomy(12/11); NG tube in place. - Nothing by mouth - Continue gentle IV fluids. - Continue to follow Surgery recs Neurology; None DVT Prophylaxis; ALPS only, Heparin on hold for Retroperitoneal Hematoma Patient is Full Code. Problem List: 1. Malignant neoplasm of cecum 2. Multiple pulmonary emboli Pain Ratin Tomorrow's Labs & Rationales: CBC, ICU lab bundle Plan DVT/Prophylaxis: Aryan Ceron MD 12/22/17 0925: Attending MD Review Statement Attending Sign Off Attending Cosign Statement: I have: examined this patient, reviewed [employer] EMR data, personally reviewd images, discussd w/resident/PA/[employer], discussed mgmt plan w/[employer], discussed mgmt plan w/CM, discussed mgmt plan w/pt, agreed w/resident/PA/[employer], amended to note. Other Findings: Impression 72 year old man * multiple bilateral pulmonary emboli (submassive) and DVT * no further vtach * Stage 3C colon cancer s/p radical right hemicolectomy * right sided retroperitoneal hematoma Plan Respiratory/Heme/CVS -high flow o2, spo2 goal >92% -IVC filter placed (retrievable) 12/20/2017 -a/c held for hematoma -vascular surgery consultation appreciated -f/u cardiology -continue to follow surgical plan regarding hematoma ID -monitor wbc, fevers Metabolic -ins/outs -creatinine/electrolyte monitoring Alimentary -NPO - awaiting bowel function Neuro -no acute issues Discussed with patient, housestaff and surgical team TTS 35 min
--- NOTE | 2017-12-22 13:23 | PN- Vascular Surgery ---
Surgical Brief Attending Note Brief Attending Note: VASCULAR ATTENDING NOTE: Events noted pt. now s/p IVCF placement for +DVT in the setting of bleeding/RP hematoma and contraindication to A/C. Remains OFF heparin. Stable on support. Would recommend restarting A/C when stable from medical/surgical standpoint to prevent propagation of DVT and aid in treatment of PE. Cont. venodynes and recommend pt get OOB--.>chair. Will follow PRN.
--- NOTE | 2017-12-22 14:54 | PN- Cardiology ---
Subjective Subjective: Clinically, the patient is doing about the same. He remains somewhat dyspneic. He denies any other new symptoms. Objective Vital Signs and I&Os Vital Signs Date Time Temp Pulse Resp B/P B/P Pulse O2 O2 Flow FiO2 Mean Ox Delivery Rate 12/22 1330 93 Nasal 65% Cannula 12/22 1200 94 Nasal 65% Cannula 12/22 0900 100/67 12/22 0900 94 Nasal 65% Cannula 12/22 0800 94 Nasal 65% Cannula 12/22 0800 98.6 92 21 97/63 94 Nasal 65% Cannula 12/22 0646 93 Nasal 65% Cannula 12/22 0401 93 Nasal 65% Cannula 12/22 0400 93 Nasal 65% Cannula 12/22 0050 93 Nasal 65% Cannula 12/22 0000 99.6 92 24 96/66 92 Nasal 65% Cannula 12/22 0000 92 Nasal 65% Cannula 12/21 2300 96 92/54 12/21 2237 92 Nasal 65% Cannula 12/21 2012 95 Nasal 65% Cannula 12/21 2000 94 Nasal 65% Cannula 12/21 1714 93 Nasal 65% Cannula 12/21 1600 92 Nasal 60% Cannula 12/21 1600 99.0 97 21 90/61 91 Nasal 60% Cannula Intake & Output 12/22 1600 12/22 0800 12/22 0000 12/21 1600 12/21 0800 12/21 0000 Intake Total 1045.8 1299 1401 1496.6 1299 1410 Output Total 725 550 600 550 500 500 Balance 320.8 749 801 946.6 799 910 Intake, Blood 350 Product Intake, IV 945.8 1299 1291 996.6 1299 1410 Intake, Oral 0 0 Intake, Other 100 110 150 Output, 175 150 150 150 50 100 Gastric Drainage Output, Urine 550 400 450 400 450 400 Physical Exam: General Appearance: well developed/nourished, elderly male, alert, awake, oriented, mild respiratory distress Head: normal HEENT: Normal Neck: supple, JVP normal, right IJ line in place, carotid upstrokes normal bilaterally, no masses or thyromegaly Respiratory: chest non-tender, scattered rhonchi Cardiovascular: regular rate/rhythm, normal S1, S2, 1-2/6 systolic murmur Abdomen: normal bowel sounds, soft, non-tender Extremities: normal inspection, no edema Vascular: Pulses are 2+ and equal bilaterally Neurologic: Grossly normal/nonfocal Current Medications: Current Medications Sig/Thai Start time Last Medication Dose Route Stop Time Status Admin Acetaminophen 1,000 MG Q6P PRN 12/11 1730 AC 12/20 IV 0408 Dextrose/Sodium 1,000 ML Q6H 12/21 0845 12/22 Chloride IV 1418 Escitalopram Oxalate 10 MG DAILY 12/12 0900 AC 12/22 PO 0900 Lorazepam 0.5 MG ONCE ONE 12/22 0015 DC 12/22 IV 12/22 0016 0015 Melatonin 5 MG AT BEDTIME PRN 12/15 2045 AC 12/15 PO 2139 Morphine Sulfate 2 MG Q4 HRS NEEDED PRN 12/21 1915 AC 12/22 IV 1248 Norepinephrine 4 MG Q22H 12/22 1800 AC Sodium Chloride 250 ML IV Norepinephrine 4 MG Q8H 12/20 1700 AC 12/21 Sodium Chloride 250 ML IV 12/22 1759 2300 Ondansetron HCl 4 MG Q6P PRN 12/11 1730 AC 12/15 IV 0728 Pantoprazole Sodium 40 MG DAILY 12/16 0900 AC 12/22 IV 0900 Phenol 2 SPRAY Q2P PRN 12/14 2345 AC EXT Phosphate 250 MG PC AND AT BEDTIME 12/21 0900 DC 12/21 PO 12/22 1301 2155 Potassium Phosphate 15 mMol ONE ONE 12/22 0700 DC 12/22 Dextrose/Water 250 ML IV 12/22 1104 0901 Results Last 48 Hrs of Labs/Mics: Laboratory Tests 12/22/17 0355: Anion Gap 9, Estimated GFR > 60, Glucose 116 H, Calcium 7.7 L, Phosphorus 2.8, Magnesium 2.0, Total Bilirubin 0.9, AST 12 L, ALT 24, Albumin 2.4 L, CBC w Diff NO MAN DIFF REQ, RBC 3.27 L, MCV 88.7, MCH 29.1, MCHC 32.9 L, RDW 22.6 H , MPV 8.7, Gran % 80.5 H, Lymphocytes % 10.4 L, Monocytes % 6.6, Eosinophils % 2.4, Basophils % 0.1, Absolute Granulocytes 6.8 H, Absolute Lymphocytes 0.9 L, Absolute Monocytes 0.6, Absolute Eosinophils 0.2, Absolute Basophils 0 12/21/17 1707: CBC w Diff NO MAN DIFF REQ, RBC 3.37 L, MCV 88.5, MCH 29.4, MCHC 33.2, RDW 22.9 H, MPV 8.5, Gran % 80.3 H, Lymphocytes % 10.0 L, Monocytes % 8.3, Eosinophils % 1.1, Basophils % 0.3, Absolute Granulocytes 7.6 H, Absolute Lymphocytes 0.9 L, Absolute Monocytes 0.8 H, Absolute Eosinophils 0.1, Absolute Basophils 0 12/21/17 0350: Anion Gap 7, Estimated GFR > 60, Glucose 135 H, Calcium 7.3 L, Phosphorus 2.2 L, Magnesium 2.1, Total Bilirubin 1.3, AST 14 L, ALT 26, Albumin 2.4 L, CBC w Diff NO MAN DIFF REQ, RBC 3.20 L, MCV 88.7, MCH 28.9, MCHC 32.6 L, RDW 23.6 H , MPV 8.5, Gran % 76.7 H, Lymphocytes % 12.5 L, Monocytes % 10.0 H, Eosinophils % 0.6, Basophils % 0.2, Absolute Granulocytes 6.9 H, Absolute Lymphocytes 1.1 L, Absolute Monocytes 0.9 H, Absolute Eosinophils 0.1, Absolute Basophils 0 12/20/172004: CBC w Diff NO MAN DIFF REQ, RBC 3.35 L, MCV 87.0, MCH 29.2, MCHC 33.5, RDW 23.4 H, MPV 8.4, Gran % 81.5 H, Lymphocytes % 9.4 L, Monocytes % 8.7, Eosinophils % 0.2, Basophils % 0.2, Absolute Granulocytes 7.9 H, Absolute Lymphocytes 0.9 L, Absolute Monocytes 0.8 H, Absolute Eosinophils 0, Absolute Basophils 0 Assessment/Plan Assessment/Plan Assessment: 1. Hypoxic respiratory failure related to bilateral pulmonary emboli with associated pulmonary hypertension 2. Status post IVC filter 3. Elevated troponin consistent with type II ND; likely related to significant pulmonary emboli with significant clot burden 4. Colon cancer, status post recent resection 5. Ascending thoracic aortic aneurysm 6. Large retroperitoneal bleed with associated anemia 7. Stable anemia 8. Markedly positive fluid balance-please note that the patient is about 10 L positive on his fluid balance over the last 4 days. Recommendations: -For now, continue all supportive care as per the critical care team. -All anticoagulation and antiplatelet agents on hold -Maintain telemetry monitoring for now. Continue telemetry? Yes
[2017-12-22 16:00] VITALS: BP 100/60
[2017-12-22 19:21] LABS: ABSOLUTE BASOPHIL COUNT 0 /CUMM (0.0-0.2); ABSOLUTE EOSINOPHIL COUNT 0.1 /CUMM (0.0-0.7); ABSOLUTE GRANULOCYTE CT 5.6 /CUMM (1.4-6.5); ABSOLUTE LYMPH COUNT 0.9 /CUMM (1.2-3.4); ABSOLUTE MONOCYTE COUNT 0.5 /CUMM (0.10-0.60); BASOPHIL % 0.2 % (0.0-2.0); EOSINOPHIL % 1.7 % (0-5); GRANULOCYTE % 78.9 % (42.2-75.2); HEMATOCRIT 28.5 % (42-52); MEAN CORPUSCULAR HGB 29.1 PG (27.0-31.0); MEAN CORPUSCULAR VOLUME 88.2 FL (80.0-94.0); MEAN PLATELET VOLUME 8.7 FL (7.4-10.4); PLATELET COUNT 208 /CUMM (130-400); RBC DISTRIBUTION WIDTH 22.1 % (11.5-14.5); RED BLOOD CELL CT 3.23 /CUMM (4.70-6.10); WHITE BLOOD CELL COUNT 7.1 /CUMM (4.8-10.8)
[2017-12-23] VITALS: BP 123/56
[2017-12-23 04:45] LABS: ABSOLUTE BASOPHIL COUNT 0 /CUMM (0.0-0.2); ABSOLUTE EOSINOPHIL COUNT 0.1 /CUMM (0.0-0.7); ABSOLUTE GRANULOCYTE CT 5.7 /CUMM (1.4-6.5); ABSOLUTE LYMPH COUNT 0.7 /CUMM (1.2-3.4); ABSOLUTE MONOCYTE COUNT 0.5 /CUMM (0.10-0.60); BASOPHIL % 0.4 % (0.0-2.0); EOSINOPHIL % 1.9 % (0-5); GRANULOCYTE % 81.4 % (42.2-75.2); HEMATOCRIT 27.8 % (42-52); MEAN CORPUSCULAR HGB CONC 32.6 G/DL (33.0-37.0); MEAN CORPUSCULAR VOLUME 88.8 FL (80.0-94.0); MEAN PLATELET VOLUME 8.5 FL (7.4-10.4); PLATELET COUNT 223 /CUMM (130-400); RBC DISTRIBUTION WIDTH 22.2 % (11.5-14.5); RED BLOOD CELL CT 3.13 /CUMM (4.70-6.10); WHITE BLOOD CELL COUNT 6.9 /CUMM (4.8-10.8)
--- NOTE | 2017-12-23 05:27 | PN- General Surgery ---
Subjective Subjective: 72 Y/O MALE S/P lap/open right hemicolectomy 12/11 day 5 in ICU awake this morning and is starting to feel bowel sounds. He feels like he could have a BM today. pain controlled. Hypovolemic Shock- now off levaphed -SBP 110-120 Retroperitoneal Hematoma - stable -back pain tolarable Acute hypoxic respiratory failure secondary to acute pulmonary embolism, not on AC now due to bleeding Bilateral lower extremity DVT Objective Vital Signs and I&Os Vital Signs Date Time Temp Pulse Resp B/P B/P Pulse O2 O2 Flow FiO2 Mean Ox Delivery Rate 12/23 0259 94 Nasal 60% Cannula 12/23 0030 95 Nasal 60% Cannula 12/23 0000 98 Nasal 65% Cannula 12/23 0000 98.0 86 18 123/56 98 Nasal 65% Cannula 12/22 2000 94 Nasal 65% Cannula 12/22 1818 92 19 132/58 12/22 1600 94 Nasal 65% Cannula 12/22 1600 98.5 94 22 100/60 94 Nasal 65% Cannula 12/22 1330 93 Nasal 65% Cannula 12/22 1200 94 Nasal 65% Cannula 12/22 0900 100/67 12/22 0900 94 Nasal 65% Cannula 12/22 0800 94 Nasal 65% Cannula 12/22 0800 98.6 92 21 97/63 94 Nasal 65% Cannula 12/22 0646 93 Nasal 65% Cannula Intake & Output 12/23 0800 12/23 0000 12/22 1600 12/22 0800 12/22 0000 12/21 1600 Intake Total 1260 1045.8 1299 1401 1496.6 Output Total 615 725 550 600 550 Balance 645 320.8 749 801 946.6 Intake, Blood 350 Product Intake, IV 1200 945.8 1299 1291 996.6 Intake, Oral 0 0 Intake, Other 60 100 110 150 Output, 125 175 150 150 150 Gastric Drainage Output, Urine 490 550 400 450 400 wake and alert NGT - 300 yesterday, 150 overnight chest - CTA symmetric heart- 80's overnight, RRR without MRG abd -distended but improved from yesterday faint bowel sounds heard in all 4 quadrants tender throughout staple line -CDI Assessment/Plan Assessment/Plan A/P POD # 12 right open hemicolectomy ICU # 5 Hypovolemic Shock- now off levaphed -SBP 110-120 Retroperitoneal Hematoma - stable -back pain tolarable Acute hypoxic respiratory failure secondary to acute pulmonary embolism PE/DVTs - IVC filter placement continue care per medical team Patient off levo - holding pressure BS on exam and he feels like having a BM today OOB to care today cont with NGT/ NPO ice chips Core Measures Venous Thromboembolism VTE Risk Factors Surgery No Mechanical VTE Prophylaxis d/t N/A MechProphylax Ordered No VTE Pharm Prophylaxis d/t NA PharmProphylax ordered
--- NOTE | 2017-12-23 07:21 | PN- Resident CRCU ---
See Addendum Radha MURDOCK,Anty 12/23/17 0721: Subjective HPI/CRCU Issues: # Hypovolemic Shock on Levophed # Retroperitoneal Hematoma # Acute hypoxic respiratory failure secondary to acute pulmonary embolism. # Bilateral lower extremity DVT # Nonsustained ventricular tachycardia. # Postop day 8 following open right hemicolectomy for colorectal cancer. # Abdominal aortic aneurysm. 6 cm in size. # SMV thrombus. 24 Hour Events: Patient said he wasn't able to sleep well last night even after taking melatonin , he would like to try something different tonight. Abdominal/flank pain is getting better. Denies any chest pain, palpitations, or sputum production or any overnight events. He said he had a bowel movement this morning and also was able to pass flatus, he would like to know if he can try something by mouth today. Objective Vital Signs & I&O Last 8 Hrs of Vitals and I&O: Intake & Output 12/23 1600 Intake Total 865 Output Total 550 Balance 315 Intake, IV 625 Intake, Oral 240 Output, 100 Gastric Drainage Output, Urine 450 Exam General Appearance: well developed/nourished, no apparent distress, alert, awake , comfortable Head: atraumatic, normal appearance Respiratory: normal breath sounds, chest non-tender, crackles Cardiovascular: regular rate/rhythm Gastrointestinal: normal bowel sounds, soft, non-tender, Surgical site insicion intact Extremities: normal inspection, trace pedal edema Current Medications: Current Medications Sig/Thai Start time Last Medication Dose Route Stop Time Status Admin Acetaminophen 1,000 MG Q6P PRN 12/11 1730 AC 12/20 IV 0408 Dextrose/Sodium 1,000 ML Q6H 12/21 0845 AC 12/23 Chloride IV 0845 Escitalopram Oxalate 10 MG DAILY 12/12 0900 12/23 PO 0845 Melatonin 3 MG ONCE ONE 12/23 2345 DC PO 12/23 2346 Melatonin 3 MG ONCE ONE 12/23 0015 DC 12/23 PO 12/23 0016 0016 Melatonin 5 MG .STK-MED ONE 12/22 2213 DC PO 12/22 221 Melatonin 5 MG AT BEDTIME PRN 12/155 AC 12/15 PO 2138 Morphine Sulfate 2 MG Q4 HRS NEEDED PRN 12/21 1915 AC 12/22 IV 2006 Norepinephrine 4 MG Q8H 04/27 1700 DC 12/21 Sodium Chloride 250 ML IV 12/22 1759 2300 Ondansetron HCl 4 MG Q6P PRN 12/11 1730 AC 12/15 IV 0728 Pantoprazole Sodium 40 MG DAILY 12/16 0900 AC 12/23 IV 0846 Phenol 2 SPRAY Q2P PRN 12/14 2345 AC EXT Potassium Phosphate 15 mMol ONE ONE 12/23 0730 DC 12/23 Dextrose/Water 250 ML IV 12/23 1134 0845 Impression/Plan Impression/Problem List Impression: Mr. 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 Rapid response was called this morning after patient was found to be tachycardic with heart rate in 120s, hypotensive with blood pressure 80/Doppler and O2 sats in the 70s improved to 75% on nonrebreather mask and is found to have multiple bilateral pulmonary emboli on CTA. Patient remians in ICU for the management of following issues; # Hypovolemic Shock on Pressors # Retroperitoneal Hematoma # Acute hypoxic respiratory failure secondary to acute pulmonary embolism. # Bilateral lower extremity DVT # Nonsustained ventricular tachycardia. # Postop day 8 following open right hemicolectomy for colorectal cancer. # Abdominal aortic aneurysm. 6 cm in size. # SMV thrombus. Plan Respiratory; 1. Bilateral Pulmonary emboli; Patient had a recent hemicolectomy done for cecal adenocarcinoma, and has been refusing his subcutaneous heparin for DVT prophylaxis per the nurses. Bilateral lower extremity Doppler was done after the patient was transferred to ICU showing bilateral nonocclusive popliteal vein thrombosis. Patient also has baseline abnormal EKG changes but second set of troponin came back elevated to 0.26. Echocardiogram was obtained showing normal ejection fraction with no regional wall motion abnormalities and stage I diastolic dysfunction. Right ventricular systolic pressure estimated to be elevated at 45- 50 mmHg. ProBNP 2260. Vascular surgery was consulted regarding possible ivc filter vs intervention did not recommend any surgical intervention at the time, recommended continuing IV heparin. - IV heparin drip on hold because of retroperitoneal hematoma - IVC filter placed by IR on 12/21/17 - Appreciate vascular surgery recommendations - Vitals every hour - Continue supplemental oxygen as needed keep O2 sats above 90%, currently on 65 % high flow. - Appreciate cardiology recommendations. Infectious; None Cardiology; 1. Nonsustained V. tach; patient had a 20 beat run of V. tach earlier this morning. White fluids remained stable at the time. Echocardiogram normal. No further episode of V.Tach - Monitor electrolytes a and replete accordingly(keep mag > 2,K and phosphorus > 4) - F/U Cardiology recommendations. 2. Elevated Troponins; Likely demand ischemia. No new EKG changes. Patient has baseline abnormal EKG changes with ST depressions in lateral leads. Echocardiogram was obtained showing normal ejection fraction with no regional wall motion abnormalities and stage I diastolic dysfunction. - Appreciate cardiology recommendations. 3. Hypovolemic Shock; Patient's blood pressure dropped down to 70/Doppler on , received almost 3 L of IV fluids without any improvement. Central line was placed by the surgical team and patient was started on Levophed(Dced 12/22). CBC was also obtained at that time showing a significant drop in hemoglobin from 12.[address] abdomen and Pelvis showed large right-sided retroperitoneal hematoma. - Blood pressure stable off Levophed. - H&H stable status post 3 units of blood transfusion. - Repeat CBC in am. - IV heparin on hold. - Resume anticoagulation once the patient is more stable. - Continue to monitor vitals. - f/u Surgery recommendations. 3. ?? Mesenteric vein thrombosis; - IV heparin on hold. - f/u vascular surgery recommendations 4. Ascending Aortic Aneurysm; - Appreciate cardiology recommendations; Can be managed as an outpatient. Heme; 1. Anemia; - See above Metabolic; - Continue to monitor creatinine and electrolytes. Alimentary; 1. Colon cancer status post hemicolectomy(12/11); NG tube in place. - Patient started on clear liquid diet today, if able to tolerate we will remove the NG tube tomorrow and advance the diet. - Continue gentle IV fluids. Neurology; None DVT Prophylaxis; ALPS only, Heparin on hold for Retroperitoneal Hematoma Patient is Full Code. Problem List: 1. Multiple pulmonary emboli 2. Malignant neoplasm of cecum Pain Ratin Pain Location: NA Pain Goal: Remain pain free Pain Plan: Pain pathway Tomorrow's Labs & Rationales: CBC ICU bundle Plan DVT/Prophylaxis: mechanical Aryan Almeida MD 12/23/17 1223: Attending MD Review Statement Attending Sign Off Attending Cosign Statement: I have: examined this patient, reviewed [facility] EMR data, personally reviewd images, discussd w/resident/PA/NEWS VIDEOTAPE EDITOR, discussed mgmt plan w/makdea, discussed mgmt plan w/CM, discussed mgmt plan w/pt, agreed w/resident/PA/NEWS VIDEOTAPE EDITOR, amended to note. Other Findings: Impression 72 year old man * multiple bilateral pulmonary emboli (submassive) and DVT * no further vtach * Stage 3C colon cancer s/p radical right hemicolectomy * right sided retroperitoneal hematoma Plan Respiratory/Heme/CVS -high flow o2, spo2 goal >92% -IVC filter placed (retrievable) 12/20/2017 -a/c held for hematoma -vascular surgery consultation appreciated -f/u cardiology -continue to follow surgical plan regarding hematoma -off vasopressors ID -monitor wbc, fevers Metabolic -ins/outs -creatinine/electrolyte monitoring Alimentary -trial of liquids, clamp ngt Neuro -no acute issues Discussed with patient, housestaff and surgical team TTS 35 min
--- NOTE | 2017-12-23 09:49 | PN- General Surgery ---
Surgical Brief Attending Note Brief Attending Note: ABOVE. MINIMIZE FLUIDS.. CLAMP NG AND TRIAL CLEARS. UP TO CHAIR. CONSIDER DIURESIS IF BP STABLE.
--- NOTE | 2017-12-23 10:19 | PN- Cardiology ---
Subjective Subjective: The patient is feeling fairly well at this time. His blood pressure is maintained off of pressors at this time. His H&H is fairly stable. His labs are good. Troponins peaked at 0.26 and has subsequently decreased. There have been no significant arrhythmias. Objective Vital Signs and I&Os Vital Signs Date Time Temp Pulse Resp B/P B/P Pulse O2 O2 Flow FiO2 Mean Ox Delivery Rate 12/23 0908 93 Nasal 60% Cannula 12/23 0629 93 Nasal 60% Cannula 12/23 0400 94 Nasal 65% Cannula 12/23 0259 94 Nasal 60% Cannula 12/23 0030 95 Nasal 60% Cannula 12/23 0000 98 Nasal 65% Cannula 12/23 0000 98.0 86 18 123/56 98 Nasal 65% Cannula 12/22 2000 94 Nasal 65% Cannula 12/22 1818 92 19 132/58 12/22 1600 94 Nasal 65% Cannula 12/22 1600 98.5 94 22 100/60 94 Nasal 65% Cannula 12/22 1330 93 Nasal 65% Cannula 12/22 1200 94 Nasal 65% Cannula Intake & Output 12/23 0800 12/23 0000 12/22 1600 12/23 0700 12/22 0000 Intake Total 1130 1260 1045.8 1299 1401 Output Total 580 615 725 550 600 Balance 550 645 320.8 749 801 Intake, IV 1130 1200 945.8 1299 1291 Intake, Oral 0 Intake, Other 60 100 110 Output, 150 125 175 150 150 Gastric Drainage Output, Stool 80 Output, Urine 350 490 550 400 450 Physical Exam: He is in no distress. NG tube is still in place. HEENT exam is normal Chest clear to limited exam Heart regular rhythm, no murmurs Abdomen nontender Extremities no edema Current Medications: Current Medications Sig/Thai Start time Last Medication Dose Route Stop Time Status Admin Acetaminophen 1,000 MG Q6P PRN 12/11 1730 AC 12/20 IV 0408 Dextrose/Sodium 1,000 ML Q6H 12/21 08 AC 12/23 Chloride IV 0845 Escitalopram Oxalate 10 MG DAILY 12/12 0900 AC 12/23 PO 0845 Melatonin 3 MG ONCE ONE 12/23 2345 DC PO 12/23 2346 Melatonin 3 MG ONCE ONE 12/23 0015 DC 12/23 PO 12/23 0016 0016 Melatonin 5 MG .STK-MED ONE 12/22 2213 DC PO 12/22 221 Melatonin 5 MG AT BEDTIME PRN 12/155 AC 12/15 PO 9 Morphine Sulfate 2 MG Q4 HRS NEEDED PRN 12/21 1915 AC 12/22 IV 2006 Norepinephrine 4 MG Q22H 12/22 1800 CAN Sodium Chloride 250 ML IV Norepinephrine 4 MG Q8H 12/20 1700 DC 12/21 Sodium Chloride 250 ML IV 12/22 1759 2300 Ondansetron HCl 4 MG Q6P PRN 12/11 1730 AC 12/15 IV 0728 Pantoprazole Sodium 40 MG DAILY 12/16 0900 AC 12/23 IV 0846 Phenol 2 SPRAY Q2P PRN 12/14 2345 AC EXT Potassium Phosphate 15 mMol ONE ONE 12/23 0730 AC 12/23 Dextrose/Water 250 ML IV 12/23 1134 0845 Potassium Phosphate 15 mMol ONE ONE 12/22 0700 DC 12/22 Dextrose/Water 250 ML IV 12/22 1104 0901 Results Last 48 Hrs of Labs/Mics: Laboratory Tests 12/23/17 0425: Anion Gap 7, Estimated GFR > 60, Glucose 117 H, Calcium 7.8 L, Phosphorus 3.3, Magnesium 2.0, Total Bilirubin 0.9, AST 14 L, ALT 26, Albumin 2.3 L, CBC w Diff NO MAN DIFF REQ, RBC 3.13 L, MCV 88.8, MCH 29.0, MCHC 32.6 L, RDW 22.2 H , MPV 8.5, Gran % 81.4 H, Lymphocytes % 9.7 L, Monocytes % 6.6, Eosinophils % 1.9, Basophils % 0.4, Absolute Granulocytes 5.7, Absolute Lymphocytes 0.7 L, Absolute Monocytes 0.5, Absolute Eosinophils 0.1, Absolute Basophils 0 12/22/17 2009: CBC w Diff Cancelled, WBC Cancelled, RBC Cancelled, Hgb Cancelled, Hct Cancelled , MCV Cancelled, MCH Cancelled, MCHC Cancelled, RDW Cancelled, Plt Count Cancelled, MPV Cancelled 12/22/17 1850: CBC w Diff NO MAN DIFF REQ, RBC 3.23 L, MCV 88.2, MCH 29.1, MCHC 33.0, RDW 22.1 H, MPV 8.7, Gran % 78.9 H, Lymphocytes % 12.6 L, Monocytes % 6.6, Eosinophils % 1.7, Basophils % 0.2, Absolute Granulocytes 5.6, Absolute Lymphocytes 0.9 L, Absolute Monocytes 0.5, Absolute Eosinophils 0.1, Absolute Basophils 0 12/22/17 0355: Anion Gap 9, Estimated GFR > 60, Glucose 116 H, Calcium 7.7 L, Phosphorus 2.8, Magnesium 2.0, Total Bilirubin 0.9, AST 12 L, ALT 24, Albumin 2.4 L, CBC w Diff NO MAN DIFF REQ, RBC 3.27 L, MCV 88.7, MCH 29.1, MCHC 32.9 L, RDW 22.6 H , MPV 8.7, Gran % 80.5 H, Lymphocytes % 10.4 L, Monocytes % 6.6, Eosinophils % 2.4, Basophils % 0.1, Absolute Granulocytes 6.8 H, Absolute Lymphocytes 0.9 L, Absolute Monocytes 0.6, Absolute Eosinophils 0.2, Absolute Basophils 0 12/21/17 1707: CBC w Diff NO MAN DIFF REQ, RBC 3.37 L, MCV 88.5, MCH 29.4, MCHC 33.2, RDW 22.9 H, MPV 8.5, Gran % 80.3 H, Lymphocytes % 10.0 L, Monocytes % 8.3, Eosinophils % 1.1, Basophils % 0.3, Absolute Granulocytes 7.6 H, Absolute Lymphocytes 0.9 L, Absolute Monocytes 0.8 H, Absolute Eosinophils 0.1, Absolute Basophils 0 Assessment/Plan Assessment/Plan the patient is relatively stable from a cardiac standpoint. Fortunately we know he has normal coronary arteries based on a cardiac catheterization just a couple of weeks ago. His troponin rise was a type II VT i.e. ischemia due to hypotension and hypoxia. From a cardiac standpoint the patient can be transferred to general medicine at this time when he is stable enough from a surgical and hemodynamic standpoint. Continue telemetry? No
[2017-12-23 16:00] VITALS: BP 150/60
[2017-12-24] VITALS: BP 130/64
[2017-12-24 05:03] LABS: ABSOLUTE BASOPHIL COUNT 0 /CUMM (0.0-0.2); ABSOLUTE EOSINOPHIL COUNT 0.1 /CUMM (0.0-0.7); ABSOLUTE GRANULOCYTE CT 5.7 /CUMM (1.4-6.5); ABSOLUTE LYMPH COUNT 0.8 /CUMM (1.2-3.4); ABSOLUTE MONOCYTE COUNT 0.4 /CUMM (0.10-0.60); BASOPHIL % 0.1 % (0.0-2.0); EOSINOPHIL % 1.9 % (0-5); GRANULOCYTE % 81.3 % (42.2-75.2); HEMATOCRIT 28.6 % (42-52); MEAN CORPUSCULAR HGB 29.2 PG (27.0-31.0); MEAN CORPUSCULAR HGB CONC 32.8 G/DL (33.0-37.0); MEAN CORPUSCULAR VOLUME 89.1 FL (80.0-94.0); MEAN PLATELET VOLUME 8.8 FL (7.4-10.4); PLATELET COUNT 264 /CUMM (130-400); RBC DISTRIBUTION WIDTH 21.8 % (11.5-14.5); RED BLOOD CELL CT 3.21 /CUMM (4.70-6.10); WHITE BLOOD CELL COUNT 7.1 /CUMM (4.8-10.8)
--- NOTE | 2017-12-24 06:40 | PN- General Surgery ---
See Addendum Subjective Subjective: Awake, alert No specific complaints Tolerating clear liquids around the ngt Pt anxious to have ngt removed because he doesn't want to have it replaced +loose stools x 3 yesterday Objective Vital Signs and I&Os Vital Signs Date Time Temp Pulse Resp B/P B/P Pulse O2 O2 Flow FiO2 Mean Ox Delivery Rate 12/24 0600 95 Nasal 45% Cannula 12/24 0400 92 Nasal 50% Cannula 12/24 0043 92 Nasal 50% Cannula 12/24 0000 96 Nasal 50% Cannula 12/24 0000 99.6 86 18 130/64 93 Nasal 50% Cannula 12/23 2203 95 Nasal 50% Cannula 12/23 2000 95 Nasal 50% Cannula 12/23 1930 95 Nasal 55% Cannula 12/23 1640 95 Nasal 60% Cannula 12/23 1600 95 Nasal 65% Cannula 12/23 1600 97.8 86 24 150/60 95 Nasal 65% Cannula 12/23 1408 93 Nasal 60% Cannula 12/23 1200 96 Nasal 65% Cannula 12/23 1153 Nasal 60% Cannula 12/23 0908 93 Nasal 60% Cannula 12/23 0800 94 Nasal 65% Cannula Intake & Output 12/24 0812/24 0000 12/23 1600 12/23 0800 12/23 0000 12/22 1600 Intake Total 750 876 920 3438 1260 1045.8 Output Total 490 400 550 580 615 725 Balance 260 450 315 550 645 320.8 Intake, IV 600 361 551 9956 1200 945.8 Intake, Oral 150 250 240 0 Intake, Other 60 100 Number 3 3 Bowel Movements Output, 100 150 125 175 Gastric Drainage Output, Stool 80 Output, Urine 490 400 450 350 490 550 Physical Exam: Abd; distended, good bs Wd: looks good, taisha intact, no drainage Assessment/Plan Assessment/Plan 72yo male s/p lap to open r bridget complicated by post op PE/DVT with IVC filter, post op retroperitoneal bleed Will discuss diet advancement with Dr Squires Continue clear liquids this morning Core Measures Venous Thromboembolism VTE Risk Factors Surgery No Mechanical VTE Prophylaxis d/t N/A MechProphylax Ordered No VTE Pharm Prophylaxis d/t NA PharmProphylax ordered
--- NOTE | 2017-12-24 07:26 | PN- Resident CRCU ---
Radha MURDOCK,[facility] 12/24/17 0726: Subjective HPI/CRCU Issues: # Hypovolemic Shock - resolved # Retroperitoneal Hematoma # Acute hypoxic respiratory failure secondary to acute pulmonary embolism. # Bilateral lower extremity DVT # Nonsustained ventricular tachycardia. # Postop day 13 following open right hemicolectomy for colorectal cancer. # Abdominal aortic aneurysm. 6 cm in size. # SMV thrombus. 24 Hour Events: Patient looks very tired and lethargic this morning, states he has been up all night because he was on the bed lilly every hour for a bowel movement. He was started on clear liquids yesterday, and has been tolerating it well. Denies any abd pain, nausea or vomiting. H&H remiains stable, BP ranging between 122-148/54-69. Continues to be on 45% high flow oxygen. RIJ Day 5 - removed today Objective Vital Signs & I&O Last 8 Hrs of Vitals and I&O: Intake & Output 12/24 1600 Intake Total 863 Output Total 550 Balance 313 Intake, IV 563 Intake, Oral 200 Intake, Other 100 Number 3 Bowel Movements Output, Urine 550 Exam General Appearance: well developed/nourished, no apparent distress, awake, lethargic Head: atraumatic, normal appearance Respiratory: normal breath sounds, chest non-tender Cardiovascular: regular rate/rhythm Gastrointestinal: normal bowel sounds, soft, non-tender, surgical site intact Extremities: normal inspection, no edema Cranial Nerves: normal hearing, normal speech, PERRL Current Medications: Current Medications Sig/Thai Start time Last Medication Dose Route Stop Time Status Admin Acetaminophen 1,000 MG Q6P PRN 12/11 1730 AC 12/20 IV 0408 Dextrose/Sodium 1,000 ML Q6H 12/21 0845 12/24 Chloride IV 0106 Escitalopram Oxalate 10 MG DAILY 12/12 0900 AC 12/23 PO 0845 Magnesium Oxide 400 MG ONE ONE 12/24 0730 DC PO 12/24 0731 Melatonin 5 MG .STK-MED ONE 12/23 2345 DC PO 12/23 234 Melatonin 3 MG ONCE ONE 12/23 2344 DC PO 12/23 2345 Melatonin 5 MG AT BEDTIME PRN 12/15 2044 AC 12/23 PO 234 Morphine Sulfate 2 MG Q4 HRS NEEDED PRN 12/21 1914 AC 12/22 IV 2006 Ondansetron HCl 4 MG Q6P PRN 12/11 1730 AC 12/15 IV 0728 Pantoprazole Sodium 40 MG DAILY 12/16 0900 AC 12/23 IV 0846 Phenol 2 SPRAY Q2P PRN 12/14 2345 AC EXT Potassium Chloride 40 MEQ BID 12/24 09 AC PO 12/24 2101 Potassium Phosphate 15 mMol ONE ONE 12/24 0800 AC Dextrose/Water 250 ML IV 12/24 1204 Potassium Phosphate 15 mMol ONE ONE 12/23 0730 DC 12/23 Dextrose/Water 250 ML IV 12/23 1134 0845 Impression/Plan Impression/Problem List Impression: Mr. 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 Rapid response was called this morning after patient was found to be tachycardic with heart rate in 120s, hypotensive with blood pressure 80/Doppler and O2 sats in the 70s improved to 75% on nonrebreather mask and is found to have multiple bilateral pulmonary emboli on CTA. Patient remians in ICU for the management of following issues; # Hypovolemic Shock off Pressors # Retroperitoneal Hematoma # Acute hypoxic respiratory failure secondary to acute pulmonary embolism. # Bilateral lower extremity DVT # Nonsustained ventricular tachycardia. # Postop day 13 following open right hemicolectomy for colorectal cancer. # Abdominal aortic aneurysm. 6 cm in size. # SMV thrombus. Plan Respiratory; 1. Bilateral Pulmonary emboli; Patient had a recent hemicolectomy done for cecal adenocarcinoma, and has been refusing his subcutaneous heparin for DVT prophylaxis per the nurses. Bilateral lower extremity Doppler was done after the patient was transferred to ICU showing bilateral nonocclusive popliteal vein thrombosis. Patient also has baseline abnormal EKG changes but second set of troponin came back elevated to 0.26. Echocardiogram was obtained showing normal ejection fraction with no regional wall motion abnormalities and stage I diastolic dysfunction. Right ventricular systolic pressure estimated to be elevated at 45- 50 mmHg. ProBNP 2260. Vascular surgery was consulted regarding possible ivc filter vs intervention did not recommend any surgical intervention at the time, recommended continuing IV heparin. - IV heparin drip on hold because of retroperitoneal hematoma. Will resume IV heparin once more stable but will start the patient on subcutaneous heparin for DVT prophylaxis after discussion with Dr. Squires and repeat CBCs later today to monitor for any drop in H&H. ALPS were discontinued yesterday because of recent DVts in popliteal vein which could be dislodged with ALPS. - IVC filter placed by IR on 12/21/17 - Appreciate vascular surgery recommendations - Vitals every hour - Continue supplemental oxygen as needed keep O2 sats above 90%, currently on 45 % high flow. - Appreciate cardiology recommendations. Infectious; None Cardiology; 1. Nonsustained V. tach; patient had a 20 beat run of V. tach earlier this morning. White fluids remained stable at the time. Echocardiogram normal. No further episode of V.Tach - Monitor electrolytes a and replete accordingly(keep mag > 2,K and phosphorus > 4) - F/U Cardiology recommendations. 2. Elevated Troponins; Likely demand ischemia. No new EKG changes. Patient has baseline abnormal EKG changes with ST depressions in lateral leads. Echocardiogram was obtained showing normal ejection fraction with no regional wall motion abnormalities and stage I diastolic dysfunction. - Appreciate cardiology recommendations. 3. Hypovolemic Shock; Patient's blood pressure dropped down to 70/Doppler on , received almost 3 L of IV fluids without any improvement. Central line was placed by the surgical team and patient was started on Levophed(Dced 12/22). CBC was also obtained at that time showing a significant drop in hemoglobin from 12.[address] abdomen and Pelvis showed large right-sided retroperitoneal hematoma. - Blood pressure stable off Levophed. - Will remove central line today. - H&H stable status post 3 units of blood transfusion. - Repeat CBC in am. - IV heparin on hold. - Resume anticoagulation once the patient is more stable. - Continue to monitor vitals. - f/u Surgery recommendations. 3. ?? Mesenteric vein thrombosis; - IV heparin on hold. - f/u vascular surgery recommendations 4. Ascending Aortic Aneurysm; - Appreciate cardiology recommendations; Can be managed as an outpatient. Heme; 1. Anemia; - See above Metabolic; - Continue to monitor creatinine and electrolytes. Alimentary; 1. Colon cancer status post hemicolectomy(12/11); NG tube in place. - Patient started on clear liquid diet yesterday, tolerating well. Can yovana remove the NG tube today per surgery. - Continue gentle IV fluids. Neurology; None DVT Prophylaxis; SC Heparin, ALPS dced because of bilateral DVT Patient is Full Code. Problem List: 1. Malignant neoplasm of cecum 2. Multiple pulmonary emboli Pain Ratin Pain Location: NA Pain Goal: Remain pain free Pain Plan: Pain Pathway Tomorrow's Labs & Rationales: CBC ICU Bundle Plan DVT/Prophylaxis: pharmacological Aryan Almeida MD 12/24/17 1138: Attending MD Review Statement Attending Sign Off Attending Cosign Statement: I have: examined this patient, reviewed [facility] EMR data, personally reviewd images, discussd w/resident/PA/NURSE PRACTICAL, discussed mgmt plan w/makeda, discussed mgmt plan w/CM, discussed mgmt plan w/pt, agreed w/resident/PA/NURSE PRACTICAL, amended to note. Other Findings: Impression 72 year old man * multiple bilateral pulmonary emboli (submassive) and DVT * no further vtach * Stage 3C colon cancer s/p radical right hemicolectomy * right sided retroperitoneal hematoma Plan Respiratory/Heme/CVS -high flow o2, spo2 goal >92% -IVC filter placed (retrievable) 12/20/2017 -a/c held for hematoma -vascular surgery consultation appreciated -f/u cardiology -continue to follow surgical plan regarding hematoma -off vasopressors ID -monitor wbc, fevers Metabolic -ins/outs -creatinine/electrolyte monitoring Alimentary -remove ngt -remove benjamin Neuro -no acute issues Discussed with patient, housestaff and surgical team TTS 35 min Initiate DVT prophylaxis dose of heparin sc q8h
[2017-12-24 08:00] VITALS: BP 132/62
--- NOTE | 2017-12-24 11:28 | PN- Cardiology ---
Subjective Subjective: The patient is feeling okay. He is having some diarrhea and his NG tube is out. He is on clear liquids at this time. He remains in sinus rhythm. He is not having any cardiac symptoms. His H&H are stable. He is now on heparin prophylaxis only. He is S/P IVC filter. Objective Vital Signs and I&Os Vital Signs Date Time Temp Pulse Resp B/P B/P Pulse O2 O2 Flow FiO2 Mean Ox Delivery Rate 12/24 0820 93 Nasal 40% Cannula 12/24 08 98.8 79 18 132/62 95 Nasal 45% Cannula 12/24 0600 95 Nasal 45% Cannula 12/24 0400 92 Nasal 50% Cannula 12/24 0043 92 Nasal 50% Cannula 12/24 0000 96 Nasal 50% Cannula 12/24 0000 99.6 86 18 130/64 93 Nasal 50% Cannula 12/23 2203 95 Nasal 50% Cannula 12/23 2000 95 Nasal 50% Cannula 12/23 1930 95 Nasal 55% Cannula 12/23 1640 95 Nasal 60% Cannula 12/23 1600 95 Nasal 65% Cannula 12/23 1600 97.8 86 24 150/60 95 Nasal 65% Cannula 12/23 1408 93 Nasal 60% Cannula 12/23 1200 96 Nasal 65% Cannula 12/23 1153 Nasal 60% Cannula Intake & Output 12/24 1600 12/24 0812/24 0000 12/23 1600 12/23 0800 12/23 0000 Intake Total 750 941 461 0768 1260 Output Total 490 400 550 580 615 Balance 260 450 315 550 645 Intake, IV 600 476 689 9637 1200 Intake, Oral 150 250 240 Intake, Other 60 Number 3 3 Bowel Movements Output, 100 150 125 Gastric Drainage Output, Stool 80 Output, Urine 490 400 450 350 490 Physical Exam: No distress HEENT exam normal Chest clear Heart regular rhythm, no murmurs Extremities no edema Current Medications: Current Medications Sig/Thai Start time Last Medication Dose Route Stop Time Status Admin Acetaminophen 1,000 MG Q6P PRN 12/11 1730 AC 12/20 IV 0408 Dextrose/Sodium 1,000 ML Q6H 12/21 0845 AC 12/24 Chloride IV 0106 Escitalopram Oxalate 10 MG DAILY 12/12 0900 AC 12/24 PO 0906 Heparin Sodium 5,000 UNIT Q8 12/24 0935 AC (Porcine) SC Magnesium Oxide 400 MG ONE ONE 12/24 0730 DC 12/24 PO 12/24 0731 0906 Melatonin 5 MG .STK-MED ONE 12/23 234 DC PO 12/23 234 Melatonin 3 MG ONCE ONE 12/23 2344 DC PO 12/23 2345 Melatonin 5 MG AT BEDTIME PRN 12/15 2044 AC 12/23 PO 234 Morphine Sulfate 2 MG Q4 HRS NEEDED PRN 12/21 1915 AC 12/22 IV 2006 Ondansetron HCl 4 MG Q6P PRN 12/11 1730 AC 12/15 IV 0728 Pantoprazole Sodium 40 MG DAILY 12/16 09 AC 12/24 IV 0906 Phenol 2 SPRAY Q2P PRN 12/14 234 AC EXT Potassium Chloride 40 MEQ BID 12/24 09 AC 12/24 PO 12/24 2101 0906 Potassium Phosphate 15 mMol ONE ONE 12/24 0800 AC 12/24 Dextrose/Water 250 ML IV 12/24 1204 0906 Potassium Phosphate 15 mMol ONE ONE 12/23 0730 DC 12/23 Dextrose/Water 250 ML IV 12/23 1134 0845 Results Last 48 Hrs of Labs/Mics: Laboratory Tests 12/24/17 0415: Anion Gap 8, Estimated GFR > 60, Glucose 105 H, Calcium 7.7 L, Phosphorus 3.2, Magnesium 1.9, Total Bilirubin 1.4 H, AST 32, ALT 40, Albumin 2.3 L, CBC w Diff NO MAN DIFF REQ, RBC 3.21 L, MCV 89.1, MCH 29.2, MCHC 32.8 L, RDW 21.8 H , MPV 8.8, Gran % 81.3 H, Lymphocytes % 10.8 L, Monocytes % 5.9, Eosinophils % 1.9, Basophils % 0.1, Absolute Granulocytes 5.7, Absolute Lymphocytes 0.8 L, Absolute Monocytes 0.4, Absolute Eosinophils 0.1, Absolute Basophils 0 12/23/17 0425: Anion Gap 7, Estimated GFR > 60, Glucose 117 H, Calcium 7.8 L, Phosphorus 3.3, Magnesium 2.0, Total Bilirubin 0.9, AST 14 L, ALT 26, Albumin 2.3 L, CBC w Diff NO MAN DIFF REQ, RBC 3.13 L, MCV 88.8, MCH 29.0, MCHC 32.6 L, RDW 22.2 H , MPV 8.5, Gran % 81.4 H, Lymphocytes % 9.7 L, Monocytes % 6.6, Eosinophils % 1.9, Basophils % 0.4, Absolute Granulocytes 5.7, Absolute Lymphocytes 0.7 L, Absolute Monocytes 0.5, Absolute Eosinophils 0.1, Absolute Basophils 0 12/22/172008: CBC w Diff Cancelled, WBC Cancelled, RBC Cancelled, Hgb Cancelled, Hct Cancelled , MCV Cancelled, MCH Cancelled, MCHC Cancelled, RDW Cancelled, Plt Count Cancelled, MPV Cancelled 12/22/171849: CBC w Diff NO MAN DIFF REQ, RBC 3.23 L, MCV 88.2, MCH 29.1, MCHC 33.0, RDW 22.1 H, MPV 8.7, Gran % 78.9 H, Lymphocytes % 12.6 L, Monocytes % 6.6, Eosinophils % 1.7, Basophils % 0.2, Absolute Granulocytes 5.6, Absolute Lymphocytes 0.9 L, Absolute Monocytes 0.5, Absolute Eosinophils 0.1, Absolute Basophils 0 Assessment/Plan Assessment/Plan The patient is stable from a cardiac standpoint. He can be transferred to [facility] floor when he no longer needs ICU care. Please call for any further cardiac input. Continue telemetry? No
[2017-12-24 12:00] VITALS: BP 146/60
[2017-12-24 16:00] VITALS: BP 138/62
[2017-12-24 17:51] LABS: ABSOLUTE BASOPHIL COUNT 0 /CUMM (0.0-0.2); ABSOLUTE EOSINOPHIL COUNT 0.1 /CUMM (0.0-0.7); ABSOLUTE GRANULOCYTE CT 5.5 /CUMM (1.4-6.5); ABSOLUTE LYMPH COUNT 0.8 /CUMM (1.2-3.4); ABSOLUTE MONOCYTE COUNT 0.3 /CUMM (0.10-0.60); BASOPHIL % 0.4 % (0.0-2.0); EOSINOPHIL % 1.6 % (0-5); GRANULOCYTE % 81.3 % (42.2-75.2); HEMATOCRIT 29.1 % (42-52); MEAN CORPUSCULAR HGB 29.1 PG (27.0-31.0); MEAN CORPUSCULAR HGB CONC 32.9 G/DL (33.0-37.0); MEAN CORPUSCULAR VOLUME 88.6 FL (80.0-94.0); MEAN PLATELET VOLUME 8.8 FL (7.4-10.4); PLATELET COUNT 285 /CUMM (130-400); RBC DISTRIBUTION WIDTH 21.1 % (11.5-14.5); RED BLOOD CELL CT 3.28 /CUMM (4.70-6.10); WHITE BLOOD CELL COUNT 6.8 /CUMM (4.8-10.8)
[2017-12-25] VITALS: BP 138/60
[2017-12-25 06:24] LABS: ABSOLUTE BASOPHIL COUNT 0 /CUMM (0.0-0.2); ABSOLUTE EOSINOPHIL COUNT 0.2 /CUMM (0.0-0.7); ABSOLUTE GRANULOCYTE CT 4.9 /CUMM (1.4-6.5); ABSOLUTE LYMPH COUNT 0.8 /CUMM (1.2-3.4); ABSOLUTE MONOCYTE COUNT 0.5 /CUMM (0.10-0.60); BASOPHIL % 0.4 % (0.0-2.0); EOSINOPHIL % 2.4 % (0-5); GRANULOCYTE % 76.6 % (42.2-75.2); HEMATOCRIT 29.4 % (42-52); MEAN CORPUSCULAR HGB CONC 32.9 G/DL (33.0-37.0); MEAN CORPUSCULAR VOLUME 88.1 FL (80.0-94.0); MEAN PLATELET VOLUME 8.8 FL (7.4-10.4); PLATELET COUNT 310 /CUMM (130-400); RBC DISTRIBUTION WIDTH 21.3 % (11.5-14.5); RED BLOOD CELL CT 3.34 /CUMM (4.70-6.10); WHITE BLOOD CELL COUNT 6.3 /CUMM (4.8-10.8)
--- NOTE | 2017-12-25 06:52 | PN- General Surgery ---
See Addendum Subjective Subjective: pt in bed, no complaints of pain or nausea. Had multiple loose stools yesterday. tolerating clears. Was OOB to chair yesterday. Denies CP/SOB, Objective Vital Signs and I&Os Vital Signs Date Time Temp Pulse Resp B/P B/P Pulse O2 O2 Flow FiO2 Mean Ox Delivery Rate 12/25 0400 92 Nasal 5.0L Cannula 12/25 0000 94 Nasal 5.0L Cannula 12/25 0000 98.1 82 20 138/60 94 Nasal 5.0L Cannula 12/24 2000 94 Nasal 5.0L Cannula 12/24 1600 95 Nasal 5.0L Cannula 12/24 1600 99.5 84 28 138/62 95 Nasal 5.0L Cannula 12/24 1200 94 Nasal 5.0L Cannula 12/24 1200 97.7 87 23 146/60 94 Nasal 5.0L Cannula 12/24 1136 96 Nasal 5.0L Cannula 12/24 0820 93 Nasal 40% Cannula 12/24 0800 95 Nasal 45% Cannula 12/24 0800 98.8 79 18 132/62 95 Nasal 45% Cannula Intake & Output 12/25 0800 12/25 0000 12/24 1600 12/24 0800 12/24 0000 12/23 1600 Intake Total 750 850 863 750 850 865 Output Total 700 275 550 490 400 550 Balance 50 575 313 260 450 315 Intake, IV 550 600 563 600 600 625 Intake, Oral 200 250 200 150 250 240 Intake, Other 100 Number 0 1 3 3 3 Bowel Movements Output, 100 Gastric Drainage Output, Urine 700 275 550 490 400 450 Physical Exam: gen- NAD resp- clear cardiac- RRR abd- less distended, +BS, soft, nontender, taisha removed and replaced with steri-strips. incision clean and dry, no drainage, no surrounding erythema Current Medications: Current Medications Sig/Thai Start time Last Medication Dose Route Stop Time Status Admin Acetaminophen 1,000 MG Q6P PRN 12/11 1730 AC 12/20 IV 0408 Dextrose/Sodium 1,000 ML Q6H 12/21 0845 AC 12/25 Chloride IV 0535 Escitalopram Oxalate 10 MG DAILY 12/12 0900 AC 12/24 PO 0906 Heparin Sodium 5,000 UNIT Q8 12/24 0935 AC 12/25 (Porcine) SC 0535 Magnesium Oxide 400 MG ONE ONE 12/24 729 DC 12/24 PO 12/24 0731 0906 Melatonin 5 MG AT BEDTIME PRN 12/15 2045 AC 12/23 PO 2349 Morphine Sulfate 2 MG Q4 HRS NEEDED PRN 12/21 1915 AC 12/22 IV 2006 Ondansetron HCl 4 MG Q6P PRN 12/11 1730 AC 12/15 IV 0728 Pantoprazole Sodium 40 MG DAILY 12/16 09 AC 12/24 IV 0906 Phenol 2 SPRAY Q2P PRN 12/14 2345 AC EXT Potassium Chloride 40 MEQ BID 12/24 09 DC 12/24 PO 12/24 2101 2043 Potassium Phosphate 15 mMol ONE ONE 12/24 08 DC 12/24 Dextrose/Water 250 ML IV 12/24 1204 0906 Results Last 48 Hours of Labs: Laboratory Tests 12/25 12/24 0540 1730 Chemistry Sodium Pending Potassium Pending Chloride Pending Carbon Dioxide Pending Anion Gap Pending BUN Pending Creatinine Pending Glucose Pending Calcium Pending Phosphorus Pending Magnesium Pending Total Bilirubin Pending AST Pending ALT Pending Albumin Pending Hematology CBC w Diff NO MAN DIFF REQ NO MAN DIFF REQ WBC (4.8 - 10.8 /CUMM) 6.3 6.8 RBC (4.70 - 6.10 /CUMM) 3.34 L 3.28 L Hgb (14.0 - 18.0 G/DL) 9.7 L 9.6 L Hct (42 - 52 %) 29.4 L 29.1 L MCV (80.0 - 94.0 FL) 88.1 88.6 MCH (27.0 - 31.0 PG) 29.0 29.1 MCHC (33.0 - 37.0 G/DL) 32.9 L 32.9 L RDW (11.5 - 14.5 %) 21.3 H 21.1 H Plt Count (130 - 400 /CUMM) 310 285 MPV (7.4 - 10.4 FL) 8.8 8.8 Gran % (42.2 - 75.2 %) 76.6 H 81.3 H Lymphocytes % (20.5 - 51.1 %) 13.2 L 11.7 L Monocytes % (1.7 - 9.3 %) 7.4 5.0 Eosinophils % (0 - 5 %) 2.4 1.6 Basophils % (0.0 - 2.0 %) 0.4 0.4 Absolute Granulocytes (1.4 - 6.5 /CUMM) 4.9 5.5 Absolute Lymphocytes (1.2 - 3.4 /CUMM) 0.8 L 0.8 L Absolute Monocytes (0.10 - 0.60 /CUMM) 0.5 0.3 Absolute Eosinophils (0.0 - 0.7 /CUMM) 0.2 0.1 Absolute Basophils (0.0 - 0.2 /CUMM) 0 0 05/01 0415 Chemistry Sodium (137 - 145 mmol/L) 138 Potassium (3.5 - 5.1 mmol/L) 3.6 Chloride (98 - 107 mmol/L) 107 Carbon Dioxide (22 - 30 mmol/L) 23 Anion Gap (5 - 16) 8 BUN (9 - 20 mg/dL) 7 L Creatinine (0.7 - 1.2 mg/dL) 0.7 Estimated GFR (>60 ml/min) > 60 Glucose (65 - 99 mg/dL) 105 H Calcium (8.4 - 10.2 mg/dL) 7.7 L Phosphorus (2.5 - 4.5 mg/dL) 3.2 Magnesium (1.6 - 2.3 mg/dL) 1.9 Total Bilirubin (0.2 - 1.3 mg/dL) 1.4 H AST (17 - 59 U/L) 32 ALT (21 - 72 U/L) 40 Albumin (3.5 - 5.0 g/dL) 2.3 L Hematology CBC w Diff NO MAN DIFF REQ WBC (4.8 - 10.8 /CUMM) 7.1 RBC (4.70 - 6.10 /CUMM) 3.21 L Hgb (14.0 - 18.0 G/DL) 9.4 L Hct (42 - 52 %) 28.6 L MCV (80.0 - 94.0 FL) 89.1 MCH (27.0 - 31.0 PG) 29.2 MCHC (33.0 - 37.0 G/DL) 32.8 L RDW (11.5 - 14.5 %) 21.8 H Plt Count (130 - 400 /CUMM) 264 MPV (7.4 - 10.4 FL) 8.8 Gran % (42.2 - 75.2 %) 81.3 H Lymphocytes % (20.5 - 51.1 %) 10.8 L Monocytes % (1.7 - 9.3 %) 5.9 Eosinophils % (0 - 5 %) 1.9 Basophils % (0.0 - 2.0 %) 0.1 Absolute Granulocytes (1.4 - 6.5 /CUMM) 5.7 Absolute Lymphocytes (1.2 - 3.4 /CUMM) 0.8 L Absolute Monocytes (0.10 - 0.60 /CUMM) 0.4 Absolute Eosinophils (0.0 - 0.7 /CUMM) 0.1 Absolute Basophils (0.0 - 0.2 /CUMM) 0 Assessment/Plan Assessment/Plan 72yo M SP R bridget colectomy complicated by post op PE/DVT with IVC filter, post op retroperitoneal bleed Will discuss diet advancement with Dr Squires, likely will be advanced to full liquids today Encourage OOB and IS Core Measures Venous Thromboembolism VTE Risk Factors Surgery No Mechanical VTE Prophylaxis d/t N/A MechProphylax Ordered No VTE Pharm Prophylaxis d/t NA PharmProphylax ordered
[2017-12-25 07:30] VITALS: BP 120/64
--- NOTE | 2017-12-25 07:41 | PN- Resident CRCU ---
Radha MURDOCK,[facility] 12/25/17 0741: Subjective HPI/CRCU Issues: # Hypovolemic Shock - resolved # Retroperitoneal Hematoma # Acute hypoxic respiratory failure secondary to acute pulmonary embolism. # Bilateral lower extremity DVT # Nonsustained ventricular tachycardia. # Postop day 14 following open right hemicolectomy for colorectal cancer. # Abdominal aortic aneurysm. 6 cm in size. # SMV thrombus. 24 Hour Events: PAtient resting comfortably in bed, no active complaints. Wants to go home. NG tube removed yesterday, diet advanced to full liquids, tolerating well. Addominal pain has resolved, also the frequency of BM has decreased significantly since yesterday. Objective Vital Signs & I&O Last 8 Hrs of Vitals and I&O: Intake & Output 12/25 0800 Intake Total 200 Output Total 650 Balance -450 Intake, Oral 200 Number 2 Bowel Movements Output, Urine 650 Exam General Appearance: well developed/nourished, no apparent distress, alert, awake , comfortable Head: atraumatic, normal appearance Respiratory: normal breath sounds, chest non-tender Cardiovascular: regular rate/rhythm Gastrointestinal: normal bowel sounds, soft, non-tender, Surgical insicion site intact Extremities: normal inspection, trace pedal edema Cranial Nerves: normal hearing, normal speech, PERRL Current Medications: Current Medications Sig/Thai Start time Last Medication Dose Route Stop Time Status Admin Acetaminophen 1,000 MG Q6P PRN 12/11 1730 AC 12/20 IV 0408 Dextrose/Sodium 1,000 ML Q6H 12/21 0845 AC 12/25 Chloride IV 0757 Escitalopram Oxalate 10 MG DAILY 12/12 09 AC 12/24 PO 09 Heparin Sodium 5,000 UNIT Q8 12/24 0935 AC 12/25 (Porcine) SC 0535 Melatonin 5 MG AT BEDTIME PRN 12/15 204 AC 12/23 PO 2349 Morphine Sulfate 2 MG Q4 HRS NEEDED PRN 12/21 1915 AC 12/22 IV 2006 Ondansetron HCl 4 MG Q6P PRN 12/11 1730 AC 12/15 IV 0728 Pantoprazole Sodium 40 MG DAILY 12/16 09 AC 12/24 IV 0906 Phenol 2 SPRAY Q2P PRN 12/14 2345 AC EXT Potassium Chloride 40 MEQ BID 12/24 09 DC 12/24 PO 12/24 2100 204 Potassium Phosphate 15 mMol ONE ONE 12/24 0800 DC 12/24 Dextrose/Water 250 ML IV 12/24 1204 0906 Impression/Plan Impression/Problem List Impression: Mr. 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 Rapid response was called this morning after patient was found to be tachycardic with heart rate in 120s, hypotensive with blood pressure 80/Doppler and O2 sats in the 70s improved to 75% on nonrebreather mask and is found to have multiple bilateral pulmonary emboli on CTA. Patient remians in ICU for the management of following issues; # Hypovolemic Shock # Retroperitoneal Hematoma # Acute hypoxic respiratory failure secondary to acute pulmonary embolism. # Bilateral lower extremity DVT # Nonsustained ventricular tachycardia. # Postop day 14 following open right hemicolectomy for colorectal cancer. # Abdominal aortic aneurysm. 6 cm in size. # SMV thrombus. Plan Respiratory; 1. Bilateral Pulmonary emboli; Patient had a recent hemicolectomy done for cecal adenocarcinoma, and has been refusing his subcutaneous heparin for DVT prophylaxis per the nurses. Bilateral lower extremity Doppler was done after the patient was transferred to ICU showing bilateral nonocclusive popliteal vein thrombosis. Patient also has baseline abnormal EKG changes but second set of troponin came back elevated to 0.26. Echocardiogram was obtained showing normal ejection fraction with no regional wall motion abnormalities and stage I diastolic dysfunction. Right ventricular systolic pressure estimated to be elevated at 45- 50 mmHg. ProBNP 2260. Vascular surgery was consulted regarding possible ivc filter vs intervention did not recommend any surgical intervention at the time, recommended continuing IV heparin. - IV heparin drip on hold because of retroperitoneal hematoma. S/C Heparin resumed with H&H remaining stable, Will resume IV Heparin. - IVC filter placed by IR on 12/21/17 - Appreciate vascular surgery recommendations - Vitals every hour - Continue supplemental oxygen as needed keep O2 sats above 90%, Off the high flow O2, now on 5L of oxygen by nasal cannula. - Appreciate cardiology recommendations. Infectious; None Cardiology; 1. Nonsustained V. tach; patient had a 20 beat run of V. tach earlier this morning. White fluids remained stable at the time. Echocardiogram normal. No further episode of V.Tach - Monitor electrolytes a and replete accordingly(keep mag > 2,K and phosphorus > 4) - F/U Cardiology recommendations. 2. Elevated Troponins; Likely demand ischemia. No new EKG changes. Patient has baseline abnormal EKG changes with ST depressions in lateral leads. Echocardiogram was obtained showing normal ejection fraction with no regional wall motion abnormalities and stage I diastolic dysfunction. - Appreciate cardiology recommendations. 3. Hypovolemic Shock; Patient's blood pressure dropped down to 70/Doppler on , received almost 3 L of IV fluids without any improvement. Central line was placed by the surgical team and patient was started on Levophed(Dced 12/22). CBC was also obtained at that time showing a significant drop in hemoglobin from 12.[address] abdomen and Pelvis showed large right-sided retroperitoneal hematoma. - Blood pressure stable off Levophed. - H&H stable status post 3 units of blood transfusion. - Repeat CBC in am. - IV heparin on hold. - Resume anticoagulation once the patient is more stable. - Continue to monitor vitals. - f/u Surgery recommendations. 3. ?? Mesenteric vein thrombosis; - IV heparin on hold. - f/u vascular surgery recommendations 4. Ascending Aortic Aneurysm; - Appreciate cardiology recommendations; Can be managed as an outpatient. Heme; 1. Anemia; - See above Metabolic; - Continue to monitor creatinine and electrolytes. Alimentary; 1. Colon cancer status post hemicolectomy(12/11); NG tube removed yesterday. - Diet advanced to Full liquid. - Continue gentle IV fluids. Neurology; None DVT Prophylaxis; SC Heparin, ALPS dced because of current DVTs Patient is Full Code. Problem List: 1. Malignant neoplasm of cecum 2. Multiple pulmonary emboli Pain Ratin Pain Location: NA Pain Goal: Remain pain free Tomorrow's Labs & Rationales: CBC ICU Bundle Plan DVT/Prophylaxis: pharmacological Aryan Almeida MD 12/25/17 1153: Attending MD Review Statement Attending Sign Off Attending Cosign Statement: I have: examined this patient, reviewed aval EMR data, personally reviewd images, discussd w/resident/PA/[employer], discussed mgmt plan w/[employer], discussed mgmt plan w/CM, discussed mgmt plan w/pt, agreed w/resident/PA/[employer], amended to note. Other Findings: Impression 72 year old man * multiple bilateral pulmonary emboli (submassive) and DVT * no further vtach * Stage 3C colon cancer s/p radical right hemicolectomy * right sided retroperitoneal hematoma Plan Respiratory/Heme/CVS -high flow o2, spo2 goal >92% -IVC filter placed (retrievable) 12/20/2017 -a/c held for hematoma, will continue to have ongoing discussion regarding starting full dose a/c given recent hematoma, would recommend once ready, to initiate heparin gtt then if no issues, coumadin would be the safest option in the event of need for reversibility and recent submassive PE vs possibly massive -f/u cardiology -continue to follow surgical plan regarding hematoma ID -monitor wbc, fevers Metabolic -ins/outs -creatinine/electrolyte monitoring Alimentary -tolerating diet, advance per surgery Neuro -no acute issues -pain subsiding Discussed with patient, housestaff and surgical team TTS 35 min DVT prophylaxis dose of heparin sc q8h - no evidence of bleeding Downgrade to telemetry
--- NOTE | 2017-12-25 10:34 | Transfer of Care Summary ---
Hospital Course Course Hospital Course: Mr. 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 Rapid response was called on 12/19/17 after patient was found to be tachycardic with heart rate in 120s, hypotensive with blood pressure 80/Doppler and O2 sats in the 70s improved to 75% on nonrebreather mask and wass found to have multiple bilateral pulmonary emboli on CTA. Patient was transferred to ICU for the management of following issues; # Hypovolemic Shock requiring pressors # Retroperitoneal Hematoma # Acute hypoxic respiratory failure secondary to acute bilateral pulmonary embolism(Submassive). # Bilateral lower extremity DVT # Nonsustained ventricular tachycardia. # Postop day 14 following open right hemicolectomy for colorectal cancer. # Abdominal aortic aneurysm. 6 cm in size. # SMV thrombus. Patient had a recent hemicolectomy done for cecal adenocarcinoma, and had been refusing his subcutaneous heparin for DVT prophylaxis per the nurses. Bilateral lower extremity Doppler was done after the patient was transferred to ICU showing bilateral nonocclusive popliteal vein thrombosis. Patient also has baseline abnormal EKG changes but second set of troponin came back elevated to 0.26. Echocardiogram was obtained showing normal ejection fraction with no regional wall motion abnormalities and stage I diastolic dysfunction. Right ventricular systolic pressure was estimated to be elevated at 45- 50 mmHg. Echocardiogram did not show any right heart strain but had a ProBNP of 2260. Vascular surgery was consulted regarding possible ivc filter vs intervention did not recommend any surgical intervention at the time, recommended continuing IV heparin. Patient was started in IV Heparin drip but his course was further complicated when next moring(12/20) patient's blood pressure dropped down to 70/ Doppler not responding to IV fluids. Central line was placed and patient was started on Levophed CBC was also obtained at that time showing a significant drop in hemoglobin from 12.[address] abdomen and Pelvis was obtained showing large right-sided retroperitoneal hematoma. IV heparin was held and IVC filter placed by IR on 12/21/17. Patient was given 3 units of blood transfusion with close monitoring of his CBC which remained stable afterwards. Patient also required high flow oxygen initially later transitioned to nasal cannula. Patient was also taken off of Levophed and Central line removed on 12/21. Patient also had a 20 beat run of V. tach on 12/19/17. Vitals remained stable at that time. Patient was kept on telemetry monitoring. Electrolytes were monitored and repleted accordingly. No further events of V. tach were noted. Cardiology consult was obtained because of the nonsustained V. tach and also because of rise in troponin(peaked at 0.26) without any new EKG changes, likely secondary to demand ischemia. Echocardiogram also showed normal ejection fraction without any regional wall motion abnormalities. 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 Patient was also found to have an ascending aortic dilatation of 6 cm confirmed with echocardiogram, which per cardiology can be managed as an outpatient. Assessment/Plan: Plan; - H & H Currently stable on S/C Heparin - Repeat CBC in am - Ongoing discussion regarding starting full dose a/c given recent hematoma, would recommend once ready, to initiate heparin gtt then if no issues, coumadin would be the safest option in the event of need for reversibility and recent submassive PE vs possibly massive. - f/u Surgery recommendations - f/u vascular surgery recommendations - Follow-up cardiology recommendations - Outpatient follow-up for ascending aortic aneurysm. - Patient currently on full liquid diet, advance per surgery. DVT Prophylaxis; SC Heparin, ALPS dced because of current DVTs Patient is Full Code. Central Line; Placed on 12/20/17 - removed on 12/24/17 NG Tube removed on 12/24/17. Arndt removed.
[2017-12-25 16:15] VITALS: BP 140/70
[2017-12-25 22:27] VITALS: BP 142/88
[2017-12-26 06:53] VITALS: BP 136/68
--- NOTE | 2017-12-26 07:19 | PN- General Surgery ---
Subjective Subjective: Pt in bed sleeping. Upon waking, he has no pain. Having loose bowel movements, tolerating full liquids, no nausea. Voiding Deneis fevers, CP/SOB OOB, working with PT, has no done stairs yet. Still on O2 via nasal canula, sats down to 91 with ambulation with mild SOB after 200 ft Objective Vital Signs and I&Os Vital Signs Date Time Temp Pulse Resp B/P B/P Pulse O2 O2 Flow FiO2 Mean Ox Delivery Rate 12/26 0653 97.9 88 20 136/68 92 Nasal Cannula 12/25 2252 92 Nasal 3.0L Cannula 12/25 2227 97.8 96 20 142/88 92 12/25 1615 98.5 90 18 140/70 91 Nasal 3.0L Cannula 12/25 1600 94 Nasal 3.0L Cannula 12/25 0800 94 Nasal 5.0L Cannula 12/25 0730 98.4 84 24 120/64 94 Nasal 5.0L Cannula Intake & Output 12/26 0812/26 0000 12/25 1600 12/25 0812/25 0000 12/24 1600 Intake Total 792 777 0298 750 850 863 Output Total 650 600 825 700 275 550 Balance -450 280 495 50 575 313 Intake, IV 300 550 600 563 Intake, Oral 710 648 7717 200 250 200 Intake, Other 100 Number 2 1 1 0 1 3 Bowel Movements Output, Urine 650 600 825 700 275 550 Patient 214 lb Weight Physical Exam: gen- NAD resp-clear cardiac-RRR ABd- less distended, +BS, soft, nontender. Incisions with no signs of infection, no drainage Current Medications: Current Medications Sig/Thai Start time Last Medication Dose Route Stop Time Status Admin Acetaminophen 1,000 MG Q6P PRN 12/11 1730 AC 12/20 IV 0408 Dextrose/Sodium 1,000 ML Q6H 12/21 0845 DC 12/25 Chloride IV 0757 Escitalopram Oxalate 10 MG DAILY 12/12 09 AC 12/25 PO 1011 Heparin Sodium 5,000 UNIT Q8 12/24 0935 AC 12/26 (Porcine) SC 0549 Magnesium Oxide 400 MG ONE ONE 12/25 1045 DC 12/25 PO 12/25 1046 1443 Melatonin 5 MG AT BEDTIME PRN 12/15 2044 AC 12/23 PO 2349 Morphine Sulfate 2 MG Q4 HRS NEEDED PRN 12/21 1915 AC 12/22 IV 2006 Ondansetron HCl 4 MG Q6P PRN 12/11 1730 AC 12/15 IV 0728 Pantoprazole Sodium 40 MG DAILY 12/16 0900 AC 12/25 IV 1011 Phenol 2 SPRAY Q2P PRN 12/14 2345 AC EXT Phosphate 250 MG PC AND AT BEDTIME 12/25 1300 DC 12/25 PO 12/25 Results Last 48 Hours of Labs: Laboratory Tests 12/26 12/25 0644 0540 Chemistry Sodium (137 - 145 mmol/L) Pending 136 L Potassium (3.5 - 5.1 mmol/L) Pending 4.2 Chloride (98 - 107 mmol/L) Pending 107 Carbon Dioxide (22 - 30 mmol/L) Pending 22 Anion Gap (5 - 16) Pending 7 BUN (9 - 20 mg/dL) Pending 5 L Creatinine (0.7 - 1.2 mg/dL) Pending 0.7 Estimated GFR (>60 ml/min) > 60 Glucose (65 - 99 mg/dL) Pending 108 H Calcium (8.4 - 10.2 mg/dL) Pending 7.7 L Phosphorus (2.5 - 4.5 mg/dL) Pending 3.0 Magnesium (1.6 - 2.3 mg/dL) Pending 1.7 Total Bilirubin (0.2 - 1.3 mg/dL) Pending 1.0 AST (17 - 59 U/L) Pending 37 ALT (21 - 72 U/L) Pending 55 Albumin (3.5 - 5.0 g/dL) Pending 2.2 L Hematology CBC w Diff Pending NO MAN DIFF REQ WBC (4.8 - 10.8 /CUMM) Pending 6.3 RBC (4.70 - 6.10 /CUMM) Pending 3.34 L Hgb (14.0 - 18.0 G/DL) Pending 9.7 L Hct (42 - 52 %) Pending 29.4 L MCV (80.0 - 94.0 FL) Pending 88.1 MCH (27.0 - 31.0 PG) Pending 29.0 MCHC (33.0 - 37.0 G/DL) Pending 32.9 L RDW (11.5 - 14.5 %) Pending 21.3 H Plt Count (130 - 400 /CUMM) Pending 310 MPV (7.4 - 10.4 FL) Pending 8.8 Gran % (42.2 - 75.2 %) 76.6 H Lymphocytes % (20.5 - 51.1 %) 13.2 L Monocytes % (1.7 - 9.3 %) 7.4 Eosinophils % (0 - 5 %) 2.4 Basophils % (0.0 - 2.0 %) 0.4 Absolute Granulocytes (1.4 - 6.5 /CUMM) 4.9 Absolute Lymphocytes (1.2 - 3.4 /CUMM) 0.8 L Absolute Monocytes (0.10 - 0.60 /CUMM) 0.5 Absolute Eosinophils (0.0 - 0.7 /CUMM) 0.2 Absolute Basophils (0.0 - 0.2 /CUMM) 0 12/24 1730 Hematology CBC w Diff NO MAN DIFF REQ WBC (4.8 - 10.8 /CUMM) 6.8 RBC (4.70 - 6.10 /CUMM) 3.28 L Hgb (14.0 - 18.0 G/DL) 9.6 L Hct (42 - 52 %) 29.1 L MCV (80.0 - 94.0 FL) 88.6 MCH (27.0 - 31.0 PG) 29.1 MCHC (33.0 - 37.0 G/DL) 32.9 L RDW (11.5 - 14.5 %) 21.1 H Plt Count (130 - 400 /CUMM) 285 MPV (7.4 - 10.4 FL) 8.8 Gran % (42.2 - 75.2 %) 81.3 H Lymphocytes % (20.5 - 51.1 %) 11.7 L Monocytes % (1.7 - 9.3 %) 5.0 Eosinophils % (0 - 5 %) 1.6 Basophils % (0.0 - 2.0 %) 0.4 Absolute Granulocytes (1.4 - 6.5 /CUMM) 5.5 Absolute Lymphocytes (1.2 - 3.4 /CUMM) 0.8 L Absolute Monocytes (0.10 - 0.60 /CUMM) 0.3 Absolute Eosinophils (0.0 - 0.7 /CUMM) 0.1 Absolute Basophils (0.0 - 0.2 /CUMM) 0 Assessment/Plan Assessment/Plan 72yo M SP R bridget colectomy complicated by post op PE/DVT with IVC filter, post op retroperitoneal bleed advancing to regular diet today Cont PT Encourage OOB and IS Per alesia Bustamante to start heparin gtt for anticoagulation, no bolus Core Measures Venous Thromboembolism VTE Risk Factors Surgery No Mechanical VTE Prophylaxis d/t N/A MechProphylax Ordered No VTE Pharm Prophylaxis d/t NA PharmProphylax ordered
--- NOTE | 2017-12-26 07:26 | PN- Housestaff ---
Amalia MURDOCK,Niranjan 12/26/17 0725: Subjective Follow-up For: Hypovolemic Shock/Retroperitoneal hemorrhage Acute hypoxic respiratory failure secondary to acute pulmonary embolism. Bilateral lower extremity DVT Nonsustained ventricular tachycardia. open right hemicolectomy for colorectal cancer. SMV thrombus Complaints: no complaints Tele-Events Since Last Visit: sinus rhythm, no events Subjective: patient has no complaints today, no abdominal pain, +non bloody BMs tolerated full liquids and advancing to regular diet wants to be discharged but off therapeutic anticoagulation at this time no new complaints remains on supplemental oxygen with SpO2 low 90s Review of Systems Constitutional: Reports: see HPI. Objective Last 24 Hrs of Vital Signs/I&O Vital Signs Date Time Temp Pulse Resp B/P B/P Pulse O2 O2 Flow FiO2 Mean Ox Delivery Rate 12/26 0653 97.9 88 20 136/68 92 Nasal Cannula 12/25 2252 92 Nasal 3.0L Cannula 12/25 2227 97.8 96 20 142/88 92 12/25 1615 98.5 90 18 140/70 91 Nasal 3.0L Cannula 12/25 1600 94 Nasal 3.0L Cannula Intake & Output 12/26 1600 12/26 0800 12/26 0000 Intake Total 200 880 Output Total 650 600 Balance -450 280 Intake, Oral 200 880 Number 2 1 Bowel Movements Output, Urine 650 600 Patient 97.097 kg Weight Physical Exam General Appearance: Alert, Oriented X3, Cooperative, No Acute Distress Cardiovascular: Regular Rate, Normal S1, Normal S2, No Murmurs Lungs: Clear to Auscultation, Normal Air Movement Abdomen: Normal Bowel Sounds, Soft, tender to palpation, midline incision with steristrips Extremities: No Clubbing, No Cyanosis, No Edema, Normal Pulses Current Medications: Current Medications Sig/Thai Start time Last Medication Dose Route Stop Time Status Admin Acetaminophen 1,000 MG Q6P PRN 12/11 1730 AC 12/20 IV 0408 Escitalopram Oxalate 10 MG DAILY 12/12 09 AC 12/26 PO 08 Heparin Sodium 25,000 UNIT Q24H 12/26 0830 AC 12/26 (Porcine) IV 1009 Sodium Chloride 500 ML Heparin Sodium 5,000 UNIT Q8 12/24 0935 AC 12/26 (Porcine) SC 0549 Melatonin 5 MG AT BEDTIME PRN 12/15 2044 AC 12/23 PO 2349 Morphine Sulfate 2 MG Q4 HRS NEEDED PRN 12/21 1915 AC 12/22 IV 2006 Omeprazole 40 MG DAILY AC 12/27 0700 AC PO Ondansetron HCl 4 MG Q6P PRN 12/11 1730 AC 12/15 IV 07 Pantoprazole Sodium 40 MG DAILY 12/16 0900 DC 12/26 IV 1008 Phenol 2 SPRAY Q2P PRN 12/14 2345 AC EXT Phosphate 250 MG PC AND AT BEDTIME 12/25 1300 DC 12/25 PO 12/25 Last 24 Hrs of Lab/Hakeem Results Last 24 Hrs of Labs/Mics: Laboratory Tests 12/26/17 0644: Anion Gap 7, Estimated GFR > 60, Glucose 103 H, Calcium 8.2 L, Phosphorus 3.4, Magnesium 1.6, Total Bilirubin 1.0, AST 31, ALT 48, Albumin 2.5 L, CBC w Diff NO MAN DIFF REQ, RBC 3.50 L, MCV 87.2, MCH 29.2, MCHC 33.5, RDW 20.9 H, MPV 8.7, Gran % 79.3 H, Lymphocytes % 11.3 L, Monocytes % 7.0, Eosinophils % 2.2, Basophils % 0.2, Absolute Granulocytes 5.7, Absolute Lymphocytes 0.8 L, Absolute Monocytes 0.5, Absolute Eosinophils 0.2, Absolute Basophils 0 Assessment/Plan Assessment: 72 year old male s/p right hemicolectomy for colorectal cancer post operative course complicated by submassive PE and bilateral lower extremity DVT developed a retroperitoneal hemorrhage with acute blood anemia on anticoagulation now s/p IVC filter, post operative day 15, now stable and re-initiated therapeutic anticoagulation prior to discharge. Open right hemicolectomy for colorectal cancer: POD day 15 Advanced to regular diet Follow up surgical recommendations No complaints of pain Hypovolemic Shock/Retroperitoneal hemorrhage: CBC stable currently, . Has been off anticoagulation STabilized in the ICU, required vasopressin gtt Hemodynamically stable Acute hypoxic respiratory failure secondary to acute pulmonary embolism, bilateral lower extremity DVT/SMV thrombus Submassive pulmonary embolism, although evidence of right heart strain on echocardiogram Remains on 2L nasal cannula supplemental oxygen requirement Restarting heparin gtt Monitor CBC Transition to coumadin if hemoglobin stable tomorrow Nonsustained ventricular tachycardia: No subsuquent arrhythmias Replete electrolytes as need Continue telemetry monitoring for now, can likely be downgraded to an unmonitored floor Follow up cardiology recommendations Heart healthy diet DVT ppx-start IV heparin gtt Full code Problem List: 1. Malignant neoplasm of cecum 2. Multiple pulmonary emboli 3. Retroperitoneal bleeding 4. Retroperitoneal hematoma Pain Ratin Pain Location: n/a Pain Goal: Pain 4 or less Pain Plan: prn Tomorrow's Labs & Rationales: cbc Jonna MURDOCKChelokayleen 12/26/17 1056: Attending MD Review Statement Attending Statement Attending MD Statement: examined this patient, discuss w/resident/PA/CARAMEL CANDY MAKER, agreed w/resident/PA/CARAMEL CANDY MAKER, reviewed EMR data (avail) Attending Assessment/Plan: 72M PMH HTN, CAD, admitted initially to surgical service after being diagnosed with poorly differentiated adenocarcinoma of the colon s/p right hemicolectomy during this admission, course complicated by bilateral DVT with submassive acute pulmonary embolism, started on heparin leading to right retroperitoneal hematoma leading to acute blood loss anemia requiring vasopressors, pRBC transfusion, complicated by Type 2 myocardial infarction and 20-beat run of NSVT, now improved and hemodynamically stable after IVC filter placed and heparin held for several days. Patient has no complaints today and feels well. His Hgb is stable. 1. Submassive acute pulmonary embolism 2. Bilateral LE DVT s/p IVC filter 3. Acute blood loss anemia (resolved) 4. Type 2 myocardial infarction 5. NSVT 6. Right hemicolectomy 7. Colon cancer 8. Right retroperitoneal hematoma Plan - Continue on telemetry - Start heparin drip - Monitor CBC q12h - Follow cardiology, surgery recommendations - Continue home medications - Will start Coumadin tomorrow if CBC is stable
[2017-12-26 08:07] LABS: ABSOLUTE BASOPHIL COUNT 0 /CUMM (0.0-0.2); ABSOLUTE EOSINOPHIL COUNT 0.2 /CUMM (0.0-0.7); ABSOLUTE GRANULOCYTE CT 5.7 /CUMM (1.4-6.5); ABSOLUTE LYMPH COUNT 0.8 /CUMM (1.2-3.4); ABSOLUTE MONOCYTE COUNT 0.5 /CUMM (0.10-0.60); BASOPHIL % 0.2 % (0.0-2.0); EOSINOPHIL % 2.2 % (0-5); GRANULOCYTE % 79.3 % (42.2-75.2); HEMATOCRIT 30.5 % (42-52); MEAN CORPUSCULAR HGB 29.2 PG (27.0-31.0); MEAN CORPUSCULAR HGB CONC 33.5 G/DL (33.0-37.0); MEAN CORPUSCULAR VOLUME 87.2 FL (80.0-94.0); MEAN PLATELET VOLUME 8.7 FL (7.4-10.4); PLATELET COUNT 347 /CUMM (130-400); RBC DISTRIBUTION WIDTH 20.9 % (11.5-14.5); WHITE BLOOD CELL COUNT 7.2 /CUMM (4.8-10.8)
--- NOTE | 2017-12-26 11:00 | PN- Pulmonary ---
Subjective HPI/Critical Care Issues: pt see and examined transferred out of icu saturating low 90's feeling better still Objective Current Medications: Current Medications Sig/Thai Start time Last Medication Dose Route Stop Time Status Admin Acetaminophen 1,000 MG Q6P PRN 12/11 1730 AC 12/20 IV 0408 Escitalopram Oxalate 10 MG DAILY 12/12 0900 AC 12/26 PO 0827 Heparin Sodium 25,000 UNIT Q24H 12/26 0830 AC 12/26 (Porcine) IV 1009 Sodium Chloride 500 ML Heparin Sodium 5,000 UNIT Q8 12/24 0935 AC 12/26 (Porcine) SC 0549 Melatonin 5 MG AT BEDTIME PRN 12/15 204 AC 12/23 PO 2349 Morphine Sulfate 2 MG Q4 HRS NEEDED PRN 12/21 191 AC 12/22 IV 2006 Omeprazole 40 MG DAILY AC 12/27 0700 AC PO Ondansetron HCl 4 MG Q6P PRN 12/11 1730 AC 12/15 IV 0728 Pantoprazole Sodium 40 MG DAILY 12/16 0900 DC 12/26 IV 1008 Phenol 2 SPRAY Q2P PRN 12/14 2344 AC EXT Phosphate 250 MG PC AND AT BEDTIME 12/25 1300 DC 12/25 PO 12/25 2101 2043 Vital Signs & I&O Last 24 Hrs of Vitals and I&O: Vital Signs Date Time Temp Pulse Resp B/P B/P Pulse O2 O2 Flow FiO2 Mean Ox Delivery Rate 12/26 0653 97.9 88 20 136/68 92 Nasal Cannula 12/25 2252 92 Nasal 3.0L Cannula 12/25 2226 97.8 96 20 142/88 92 12/25 1615 98.5 90 18 140/70 91 Nasal 3.0L Cannula 12/25 1600 94 Nasal 3.0L Cannula Intake & Output 12/26 1600 12/26 0800 12/26 0000 Intake Total 200 880 Output Total 650 600 Balance -450 280 Intake, Oral 200 880 Number 2 1 Bowel Movements Output, Urine 650 600 Patient 214 lb Weight Exam Other Physical Findings: awake and alert nasal cannula overall clear lungs heart exam normal no edema abd tenderness subsided on the right Results Last 24 Hrs of Lab Results: Laboratory Tests 12/26/17 0644: Anion Gap 7, Estimated GFR > 60, Glucose 103 H, Calcium 8.2 L, Phosphorus 3.4, Magnesium 1.6, Total Bilirubin 1.0, AST 31, ALT 48, Albumin 2.5 L, CBC w Diff NO MAN DIFF REQ, RBC 3.50 L, MCV 87.2, MCH 29.2, MCHC 33.5, RDW 20.9 H, MPV 8.7, Gran % 79.3 H, Lymphocytes % 11.3 L, Monocytes % 7.0, Eosinophils % 2.2, Basophils % 0.2, Absolute Granulocytes 5.7, Absolute Lymphocytes 0.8 L, Absolute Monocytes 0.5, Absolute Eosinophils 0.2, Absolute Basophils 0 Impression/Plan Impression/Plan Impression/Plan: Impression 72 year old man * multiple bilateral pulmonary emboli (submassive) and DVT * no further vtach * Stage 3C colon cancer s/p radical right hemicolectomy * right sided retroperitoneal hematoma Plan -reduce fio2 to goal of spo2 >92% -per surgical notes it is okay to start heparin gtt without a bolus -please monitor cbc closely and check 8 hours after initiation then q12h for 24 hr period -IVC filter in place -if does well, best choice given significant VTE would advise for coumadin therapy -PT/oob -would require bridging therapy, do not initiate oral meds until hemoglobin stable -oncology f/u as outpt
[2017-12-26 14:30] VITALS: BP 142/60
[2017-12-26 17:48] LABS: ABSOLUTE BASOPHIL COUNT 0 /CUMM (0.0-0.2); ABSOLUTE EOSINOPHIL COUNT 0.1 /CUMM (0.0-0.7); ABSOLUTE GRANULOCYTE CT 7.5 /CUMM (1.4-6.5); ABSOLUTE LYMPH COUNT 0.9 /CUMM (1.2-3.4); ABSOLUTE MONOCYTE COUNT 0.6 /CUMM (0.10-0.60); BASOPHIL % 0.2 % (0.0-2.0); EOSINOPHIL % 0.9 % (0-5); GRANULOCYTE % 82.4 % (42.2-75.2); HEMATOCRIT 30.9 % (42-52); MEAN CORPUSCULAR HGB 28.9 PG (27.0-31.0); MEAN CORPUSCULAR HGB CONC 32.6 G/DL (33.0-37.0); MEAN CORPUSCULAR VOLUME 88.8 FL (80.0-94.0); MEAN PLATELET VOLUME 8.7 FL (7.4-10.4); PLATELET COUNT 384 /CUMM (130-400); RED BLOOD CELL CT 3.48 /CUMM (4.70-6.10); WHITE BLOOD CELL COUNT 9.1 /CUMM (4.8-10.8)
[2017-12-26 17:52] LABS: PTT 82 SEC (25-37)
[2017-12-26 22:46] VITALS: BP 130/76
[2017-12-27 04:28] LABS: ABSOLUTE BASOPHIL COUNT 0 /CUMM (0.0-0.2); ABSOLUTE EOSINOPHIL COUNT 0.2 /CUMM (0.0-0.7); ABSOLUTE GRANULOCYTE CT 5.5 /CUMM (1.4-6.5); ABSOLUTE LYMPH COUNT 1.1 /CUMM (1.2-3.4); ABSOLUTE MONOCYTE COUNT 0.6 /CUMM (0.10-0.60); BASOPHIL % 0.3 % (0.0-2.0); EOSINOPHIL % 2.3 % (0-5); GRANULOCYTE % 74.8 % (42.2-75.2); HEMATOCRIT 29.6 % (42-52); MEAN CORPUSCULAR HGB 28.8 PG (27.0-31.0); MEAN CORPUSCULAR HGB CONC 32.4 G/DL (33.0-37.0); MEAN CORPUSCULAR VOLUME 88.7 FL (80.0-94.0); MEAN PLATELET VOLUME 8.4 FL (7.4-10.4); PLATELET COUNT 370 /CUMM (130-400); RBC DISTRIBUTION WIDTH 20.5 % (11.5-14.5); RED BLOOD CELL CT 3.34 /CUMM (4.70-6.10); WHITE BLOOD CELL COUNT 7.4 /CUMM (4.8-10.8)
[2017-12-27 04:32] LABS: PT 15.2 SEC (9.4-12.5)
[2017-12-27 04:35] LABS: PTT 58 SEC (25-37)
[2017-12-27 06:05] VITALS: BP 120/60
--- NOTE | 2017-12-27 07:07 | PN- Housestaff ---
See Addendum Subjective Follow-up For: Hypovolemic Shock/Retroperitoneal hemorrhage Acute hypoxic respiratory failure secondary to acute pulmonary embolism. Bilateral lower extremity DVT Nonsustained ventricular tachycardia. open right hemicolectomy for colorectal cancer. SMV thrombus Tele-Events Since Last Visit: sinus rhythm, no events Subjective: no complaints of abdominal pain tolerated regular diet last night Review of Systems Constitutional: Reports: see HPI. Objective Last 24 Hrs of Vital Signs/I&O Vital Signs Date Time Temp Pulse Resp B/P B/P Pulse O2 O2 Flow FiO2 Mean Ox Delivery Rate 12/27 0605 99.1 84 20 120/60 91 Nasal Cannula 12/27 0000 94 Nasal 2.0L Cannula 12/26 2246 99.6 90 18 130/76 92 12/26 1600 91 Nasal 2.0L Cannula 12/26 1430 98.5 94 20 142/60 91 Intake & Output 12/27 1600 12/27 0800 12/27 0000 Intake Total 448 360 Output Total 1375 850 Balance -927 -490 Intake, IV 208 Intake, Oral 240 360 Output, Urine 1375 850 Patient 93.95 kg Weight Physical Exam General Appearance: Alert, Oriented X3, Cooperative, No Acute Distress Cardiovascular: Regular Rate, Normal S1, Normal S2, No Murmurs Lungs: Clear to Auscultation, Normal Air Movement Abdomen: Normal Bowel Sounds, Soft, No Tenderness, No Masses, incision healing well, steristrips, non tender Extremities: No Clubbing, No Cyanosis, No Edema, Normal Pulses Current Medications: Current Medications Sig/Thai Start time Last Medication Dose Route Stop Time Status Admin Acetaminophen 1,000 MG Q6P PRN 12/11 1730 AC 12/20 IV 0408 Escitalopram Oxalate 10 MG DAILY 12/12 0900 AC 12/26 PO 0827 Heparin Sodium 25,000 UNIT Q24H 12/26 0830 AC 12/27 (Porcine) IV 0609 Sodium Chloride 500 ML Heparin Sodium 5,000 UNIT Q8 12/24 0935 DC 12/26 (Porcine) SC 0549 Magnesium Oxide 400 MG ONE ONE 12/26 1430 DC 12/26 PO 12/26 1431 1825 Melatonin 5 MG AT BEDTIME PRN 12/15 2045 AC 12/23 PO 2349 Morphine Sulfate 2 MG Q4 HRS NEEDED PRN 12/21 1915 AC 12/22 IV 2006 Omeprazole 40 MG DAILY AC 12/27 0700 AC 12/27 PO 0608 Ondansetron HCl 4 MG Q6P PRN 12/11 1730 AC 12/15 IV 0728 Pantoprazole Sodium 40 MG DAILY 12/16 0900 DC 12/26 IV 1008 Phenol 2 SPRAY Q2P PRN 12/14 2345 AC EXT Last 24 Hrs of Lab/Hakeem Results Last 24 Hrs of Labs/Mics: Laboratory Tests 12/27/17 0410: PT 15.2 H, INR 1.39 H 12/27/17 0410: Anion Gap 7, Estimated GFR > 60, BUN/Creatinine Ratio 6.3 L, APTT 58 H, CBC w Diff NO MAN DIFF REQ, RBC 3.34 L, MCV 88.7, MCH 28.8, MCHC 32.4 L, RDW 20.5 H , MPV 8.4, Gran % 74.8, Lymphocytes % 14.6 L, Monocytes % 8.0, Eosinophils % 2.3, Basophils % 0.3, Absolute Granulocytes 5.5, Absolute Lymphocytes 1.1 L, Absolute Monocytes 0.6, Absolute Eosinophils 0.2, Absolute Basophils 0 12/26/17 2200: CBC w Diff Cancelled, WBC Cancelled, RBC Cancelled, Hgb Cancelled, Hct Cancelled , MCV Cancelled, MCH Cancelled, MCHC Cancelled, RDW Cancelled, Plt Count Cancelled, MPV Cancelled 12/26/17 1600: APTT 82 H, CBC w Diff NO MAN DIFF REQ, RBC 3.48 L, MCV 88.8, MCH 28.9, MCHC 32.6 L, RDW 21.0 H, MPV 8.7, Gran % 82.4 H, Lymphocytes % 10.0 L, Monocytes % 6.5, Eosinophils % 0.9, Basophils % 0.2, Absolute Granulocytes 7.5 H, Absolute Lymphocytes 0.9 L, Absolute Monocytes 0.6, Absolute Eosinophils 0.1, Absolute Basophils 0 Assessment/Plan Assessment: 72 year old male s/p right hemicolectomy for colorectal cancer post operative course complicated by submassive PE and bilateral lower extremity DVT developed a retroperitoneal hemorrhage with acute blood anemia on anticoagulation now s/p IVC filter, post operative day 15, now stable and re-initiated therapeutic anticoagulation prior to discharge. Open right hemicolectomy for colorectal cancer: POD day 16 Tolerating regular diet Follow up surgical recommendations No complaints of pain Hypovolemic Shock/Retroperitoneal hemorrhage: CBC stable currently, ., on IV heparing Has been off anticoagulation STabilized in the ICU, required levophed for hypovolemic/hemorrhagic shock Hemodynamically stable Acute hypoxic respiratory failure secondary to acute pulmonary embolism, bilateral lower extremity DVT/SMV thrombus Submassive pulmonary embolism, although evidence of right heart strain on echocardiogram Remains on 2L nasal cannula supplemental oxygen requirement Restarting heparin gtt Monitor CBC Bridge to coumadin, hemoglobin stable Coumadin 5mg today, monitor INR daily and adjust dose as necessary Nonsustained ventricular tachycardia: No subsuquent arrhythmias Replete electrolytes as need Continue telemetry monitoring for now, can likely be downgraded to an unmonitored floor Follow up cardiology recommendations Heart healthy diet DVT ppx-start IV heparin gtt and coumadin Full code Problem List: 1. Retroperitoneal hematoma 2. Retroperitoneal bleeding 3. Multiple pulmonary emboli 4. Malignant neoplasm of cecum Pain Ratin Pain Location: n/a Pain Goal: Pain 4 or less Pain Plan: prn Tomorrow's Labs & Rationales: cbc, inr
--- NOTE | 2017-12-27 09:36 | PN- Pulmonary ---
Subjective HPI/Critical Care Issues: pt seen and examined afebrile saturating 91-94% on 2LNC Objective Current Medications: Current Medications Sig/Thai Start time Last Medication Dose Route Stop Time Status Admin Acetaminophen 1,000 MG Q6P PRN 12/11 1730 AC 12/20 IV 0408 Escitalopram Oxalate 10 MG DAILY 12/12 0900 AC 12/27 PO 0900 Heparin Sodium 25,000 UNIT Q24H 12/26 0830 AC 12/27 (Porcine) IV 0609 Sodium Chloride 500 ML Heparin Sodium 5,000 UNIT Q8 12/24 0935 DC 12/26 (Porcine) SC 0549 Magnesium Oxide 400 MG ONE ONE 12/26 1430 DC 12/26 PO 12/26 1431 1825 Melatonin 5 MG AT BEDTIME PRN 12/15 204 AC 12/23 PO 2349 Morphine Sulfate 2 MG Q4 HRS NEEDED PRN 12/21 1915 AC 12/22 IV 2006 Omeprazole 40 MG DAILY AC 12/27 0700 AC 12/27 PO 0608 Ondansetron HCl 4 MG Q6P PRN 12/11 1730 AC 12/15 IV 0728 Phenol 2 SPRAY Q2P PRN 12/14 2345 AC EXT Warfarin Sodium 5 MG COUMADIN 1700 ONE 12/27 1700 AC PO 12/27 1701 Vital Signs & I&O Last 24 Hrs of Vitals and I&O: Vital Signs Date Time Temp Pulse Resp B/P B/P Pulse O2 O2 Flow FiO2 Mean Ox Delivery Rate 12/27 0800 Nasal 2.0L Cannula 12/27 0605 99.1 84 20 120/60 91 Nasal Cannula 12/27 0000 94 Nasal 2.0L Cannula 12/26 2246 99.6 90 18 130/76 92 12/26 1600 91 Nasal 2.0L Cannula 12/26 1430 98.5 94 20 142/60 91 Intake & Output 12/27 1600 12/27 0800 12/27 0000 Intake Total 448 360 Output Total 1375 850 Balance -927 -490 Intake, IV 208 Intake, Oral 240 360 Output, Urine 1375 850 Patient 207 lb Weight Exam Other Physical Findings: awake and alert nasal cannula overall clear lungs heart exam normal no edema abd tenderness subsided on the right Results Last 24 Hrs of Lab Results: Laboratory Tests 12/27/17 0410: PT 15.2 H, INR 1.39 H 12/27/17 0410: Anion Gap 7, Estimated GFR > 60, BUN/Creatinine Ratio 6.3 L, APTT 58 H, CBC w Diff NO MAN DIFF REQ, RBC 3.34 L, MCV 88.7, MCH 28.8, MCHC 32.4 L, RDW 20.5 H , MPV 8.4, Gran % 74.8, Lymphocytes % 14.6 L, Monocytes % 8.0, Eosinophils % 2.3, Basophils % 0.3, Absolute Granulocytes 5.5, Absolute Lymphocytes 1.1 L, Absolute Monocytes 0.6, Absolute Eosinophils 0.2, Absolute Basophils 0 12/26/17 2200: CBC w Diff Cancelled, WBC Cancelled, RBC Cancelled, Hgb Cancelled, Hct Cancelled , MCV Cancelled, MCH Cancelled, MCHC Cancelled, RDW Cancelled, Plt Count Cancelled, MPV Cancelled 12/26/17 1600: APTT 82 H, CBC w Diff NO MAN DIFF REQ, RBC 3.48 L, MCV 88.8, MCH 28.9, MCHC 32.6 L, RDW 21.0 H, MPV 8.7, Gran % 82.4 H, Lymphocytes % 10.0 L, Monocytes % 6.5, Eosinophils % 0.9, Basophils % 0.2, Absolute Granulocytes 7.5 H, Absolute Lymphocytes 0.9 L, Absolute Monocytes 0.6, Absolute Eosinophils 0.1, Absolute Basophils 0 Impression/Plan Impression/Plan Impression/Plan: Impression 72 year old man * multiple bilateral pulmonary emboli (submassive) and DVT * no further vtach * Stage 3C colon cancer s/p radical right hemicolectomy * right sided retroperitoneal hematoma Plan -reduce fio2 to goal of spo2 >92% -per surgical notes okay to anticoagulate - heparin/coumadin bridge, goal INR 2- 3, monitor hemoglobin, at least 5 days of overlap -IVC filter in place -if does well, best choice given significant VTE would advise for coumadin therapy -PT/oob -oncology f/u as outpt
[2017-12-27 13:02] LABS: PTT 64 SEC (25-37)
--- NOTE | 2017-12-27 13:33 | PN- General Surgery ---
Surgical Brief Attending Note Brief Attending Note: Patient doing well. O2 weaning. bowel function normalizing. Tolerating anticoagulation without signs of recurrent bleeding. Transition to Coumadin per primary team. Patient should f/u with me 2 weeks after d/c.
[2017-12-27 14:39] VITALS: BP 124/60
[2017-12-27 23:22] VITALS: BP 108/60
[2017-12-27 23:29] VITALS: BP 108/60
[2017-12-28 01:19] LABS: PTT 75 SEC (25-37)
[2017-12-28 07:05] VITALS: BP 120/60
[2017-12-28 08:16] LABS: ABSOLUTE BASOPHIL COUNT 0 /CUMM (0.0-0.2); ABSOLUTE EOSINOPHIL COUNT 0.2 /CUMM (0.0-0.7); ABSOLUTE GRANULOCYTE CT 5.1 /CUMM (1.4-6.5); ABSOLUTE MONOCYTE COUNT 0.6 /CUMM (0.10-0.60); BASOPHIL % 0.4 % (0.0-2.0); GRANULOCYTE % 73.1 % (42.2-75.2); HEMATOCRIT 31.5 % (42-52); MEAN CORPUSCULAR HGB CONC 32.9 G/DL (33.0-37.0); MEAN CORPUSCULAR VOLUME 88.3 FL (80.0-94.0); PLATELET COUNT 414 /CUMM (130-400); RBC DISTRIBUTION WIDTH 20.8 % (11.5-14.5); RED BLOOD CELL CT 3.56 /CUMM (4.70-6.10)
[2017-12-28 08:23] LABS: PT 15.3 SEC (9.4-12.5)
--- NOTE | 2017-12-28 08:33 | PN- Housestaff ---
See Addendum Subjective Follow-up For: Hypovolemic Shock/Retroperitoneal hemorrhage Acute hypoxic respiratory failure secondary to acute pulmonary embolism. Bilateral lower extremity DVT Nonsustained ventricular tachycardia. open right hemicolectomy for colorectal cancer. SMV thrombus Tele-Events Since Last Visit: sinus rhythm no events Subjective: patient is having some difficulty sleeping and anxious to be discharged hes reporting some mild right sided abdominal soreness postoperatively and decreased appetite Review of Systems Constitutional: Reports: see HPI. Objective Last 24 Hrs of Vital Signs/I&O Vital Signs Date Time Temp Pulse Resp B/P B/P Pulse O2 O2 Flow FiO2 Mean Ox Delivery Rate 12/28 1009 96 Nasal 1.0L Cannula 12/28 0928 95 Nasal 2.0L Cannula 12/28 0705 97.6 80 20 120/60 93 Nasal Cannula 12/28 0000 Nasal 2.0L Cannula 12/27 2329 99.2 84 20 108/60 93 Nasal Cannula 12/27 2322 99.2 84 20 108/60 93 Nasal Cannula 12/27 1439 98.2 85 20 124/60 91 Nasal 2.0L Cannula Intake & Output 12/28 1600 12/28 0800 12/28 0000 Intake Total 352 120 Output Total 600 500 Balance -248 -380 Intake, IV 232 Intake, Oral 120 120 Number 1 Bowel Movements Output, Urine 600 500 Patient 91.796 kg Weight Physical Exam General Appearance: Alert, Oriented X3, Cooperative, No Acute Distress Cardiovascular: Regular Rate, Normal S1, Normal S2, No Murmurs Lungs: Clear to Auscultation, Normal Air Movement Abdomen: Normal Bowel Sounds, Soft, No Tenderness, No Masses Extremities: No Clubbing, No Cyanosis, No Edema, Normal Pulses Current Medications: Current Medications Sig/Thai Start time Last Medication Dose Route Stop Time Status Admin Acetaminophen 1,000 MG Q6P PRN 12/11 1730 AC 12/20 IV 0408 Escitalopram Oxalate 10 MG DAILY 12/12 09 AC 12/28 PO 09 Heparin Sodium 25,000 UNIT Q24H 12/26 0830 AC 12/28 (Porcine) IV 004 Sodium Chloride 500 ML Melatonin 5 MG AT BEDTIME PRN 12/15 2044 AC 12/23 PO 2349 Morphine Sulfate 2 MG Q4 HRS NEEDED PRN 12/21 191 AC 12/22 IV 2006 Omeprazole 40 MG DAILY AC 12/27 0700 AC 12/28 PO 0527 Ondansetron HCl 4 MG Q6P PRN 12/11 1730 AC 12/15 IV 0728 Patient Medication 1 ED ONE ONE 12/27 1715 DC Teaching ED 12/27 1716 Phenol 2 SPRAY Q2P PRN 12/14 2345 AC EXT Warfarin Sodium 5 MG COUMADIN 1700 ONE 12/28 1700 AC PO 12/28 1701 Warfarin Sodium 5 MG COUMADIN 1700 ONE 12/27 1700 DC 12/27 PO 12/27 170 1621 Zolpidem Tartrate 5 MG AT BEDTIME 12/27 2099 AC 12/27 PO 2054 Last 24 Hrs of Lab/Hakeem Results Last 24 Hrs of Labs/Mics: Laboratory Tests 12/28/17 0654: PT 15.3 H, INR 1.40 H, CBC w Diff NO MAN DIFF REQ, RBC 3.56 L, MCV 88.3, MCH 29.0, MCHC 32.9 L, RDW 20.8 H, MPV 9.0, Gran % 73.1, Lymphocytes % 14.9 L, Monocytes % 8.6, Eosinophils % 3.0, Basophils % 0.4, Absolute Granulocytes 5.1, Absolute Lymphocytes 1.0 L, Absolute Monocytes 0.6, Absolute Eosinophils 0.2, Absolute Basophils 0 12/28/17 0037: APTT 75 H 12/27/17 1200: APTT 64 H Assessment/Plan Assessment: 72 year old male s/p right hemicolectomy for colorectal cancer post operative course complicated by submassive PE and bilateral lower extremity DVT developed a retroperitoneal hemorrhage with acute blood anemia on anticoagulation now s/p IVC filter, post operative day 17, now stable and re-initiated therapeutic anticoagulation. Open right hemicolectomy for colorectal cancer: POD day 17 Tolerating regular diet Follow up surgical recommendations No complaints of pain Hypovolemic Shock/Retroperitoneal hemorrhage: CBC stable currently, 9.5/33, on IV heparin Has been off anticoagulation STabilized in the ICU, required levophed for hypovolemic/hemorrhagic shock Hemodynamically stable Acute hypoxic respiratory failure secondary to acute pulmonary embolism, bilateral lower extremity DVT/SMV thrombus Submassive pulmonary embolism, although evidence of right heart strain on echocardiogram Remains on 2L nasal cannula supplemental oxygen requirement Restarting heparin gtt Daily CBC and INR 1.4 today Bridge to coumadin, Day 2, hemoglobin stable Coumadin 5mg today, monitor INR daily and adjust dose as necessary Nonsustained ventricular tachycardia: No subsuquent arrhythmias Replete electrolytes as need Continue telemetry monitoring for now, can likely be downgraded to an unmonitored floor Follow up cardiology recommendations Heart healthy diet DVT ppx-start IV heparin gtt and coumadin Full code Problem List: 1. Multiple pulmonary emboli 2. Retroperitoneal bleeding 3. Retroperitoneal hematoma 4. Malignant neoplasm of cecum Pain Ratin Pain Location: right abdomen Pain Goal: Pain 4 or less Pain Plan: prn Tomorrow's Labs & Rationales: cbc, pt/inr
--- NOTE | 2017-12-28 12:27 | PN- Cardiology ---
Subjective Subjective: No recurrence of VT on telemetry. No acute events. Objective Vital Signs and I&Os Vital Signs Date Time Temp Pulse Resp B/P B/P Pulse O2 O2 Flow FiO2 Mean Ox Delivery Rate 12/28 1045 88 Room Air 12/28 1009 96 Nasal 1.0L Cannula 12/28 0928 95 Nasal 2.0L Cannula 12/28 08 93 Nasal 2.0L Cannula 12/28 0705 97.6 80 20 120/60 93 Nasal Cannula 12/28 0000 Nasal 2.0L Cannula 12/27 2329 99.2 84 20 108/60 93 Nasal Cannula 12/27 232 99.2 84 20 108/60 93 Nasal Cannula 12/27 1439 98.2 85 20 124/60 91 Nasal 2.0L Cannula Intake & Output 12/28 0000 12/27 1600 12/27 0000 Intake Total 352 120 740 448 360 Output Total 890 083 8872 1375 850 Balance -248 -380 -610 -927 -490 Intake, IV 232 240 208 Intake, Oral 120 120 500 240 360 Number 1 Bowel Movements Output, Urine 514 332 5457 1375 850 Patient 202 lb 206 lb 207 lb Weight Weight Bed scale Measurement Method Physical Exam: General Appearance: Alert, Oriented X3, No Acute Distress Cardiovascular: Regular Rate, Normal S1, Normal S2, No Murmurs Lungs: Clear to Auscultation, Normal Air Movement Abdomen: Normal Bowel Sounds, Soft, No Tenderness, No Masses Extremities: normal capillary refill, No Edema, Normal Pulses Current Medications: Current Medications Sig/Thai Start time Last Medication Dose Route Stop Time Status Admin Acetaminophen 1,000 MG Q6P PRN 12/11 173 AC 12/20 IV 0408 Escitalopram Oxalate 10 MG DAILY 12/12 09 AC 12/28 PO 0925 Heparin Sodium 25,000 UNIT Q24H 12/26 08 AC 12/28 (Porcine) IV 004 Sodium Chloride 500 ML Melatonin 5 MG AT BEDTIME PRN 12/15 2044 AC 12/23 PO 234 Morphine Sulfate 2 MG Q4 HRS NEEDED PRN 12/21 191 AC 12/22 IV 2006 Omeprazole 40 MG DAILY AC 12/27 0700 AC 12/28 PO 05 Ondansetron HCl 4 MG Q6P PRN 12/11 173 AC 12/15 IV 0728 Patient Medication 1 ED ONE ONE 05/04 1715 DC Teaching ED 12/27 171 Phenol 2 SPRAY Q2P PRN 12/14 2345 AC EXT Warfarin Sodium 5 MG COUMADIN 170 ONE 12/28 1700 AC PO 12/28 1701 Warfarin Sodium 5 MG COUMADIN 170 ONE 12/27 1700 DC 12/27 PO 12/27 1701 1621 Zolpidem Tartrate 10 MG AT BEDTIME 12/28 2100 AC PO Zolpidem Tartrate 5 MG AT BEDTIME 12/27 2100 DC 12/27 PO 2054 Results Last 48 Hrs of Labs/Mics: Laboratory Tests 12/28/17 1159: APTT Pending 12/28/17 0654: PT 15.3 H, INR 1.40 H, CBC w Diff NO MAN DIFF REQ, RBC 3.56 L, MCV 88.3, MCH 29.0, MCHC 32.9 L, RDW 20.8 H, MPV 9.0, Gran % 73.1, Lymphocytes % 14.9 L, Monocytes % 8.6, Eosinophils % 3.0, Basophils % 0.4, Absolute Granulocytes 5.1, Absolute Lymphocytes 1.0 L, Absolute Monocytes 0.6, Absolute Eosinophils 0.2, Absolute Basophils 0 12/28/17 0037: APTT 75 H 12/27/17 1200: APTT 64 H 12/27/17 0410: PT 15.2 H, INR 1.39 H 12/27/17 0410: Anion Gap 7, Estimated GFR > 60, BUN/Creatinine Ratio 6.3 L, APTT 58 H, CBC w Diff NO MAN DIFF REQ, RBC 3.34 L, MCV 88.7, MCH 28.8, MCHC 32.4 L, RDW 20.5 H , MPV 8.4, Gran % 74.8, Lymphocytes % 14.6 L, Monocytes % 8.0, Eosinophils % 2.3, Basophils % 0.3, Absolute Granulocytes 5.5, Absolute Lymphocytes 1.1 L, Absolute Monocytes 0.6, Absolute Eosinophils 0.2, Absolute Basophils 0 12/26/17 2200: CBC w Diff Cancelled, WBC Cancelled, RBC Cancelled, Hgb Cancelled, Hct Cancelled , MCV Cancelled, MCH Cancelled, MCHC Cancelled, RDW Cancelled, Plt Count Cancelled, MPV Cancelled 12/26/17 1600: APTT 82 H, CBC w Diff NO MAN DIFF REQ, RBC 3.48 L, MCV 88.8, MCH 28.9, MCHC 32.6 L, RDW 21.0 H, MPV 8.7, Gran % 82.4 H, Lymphocytes % 10.0 L, Monocytes % 6.5, Eosinophils % 0.9, Basophils % 0.2, Absolute Granulocytes 7.5 H, Absolute Lymphocytes 0.9 L, Absolute Monocytes 0.6, Absolute Eosinophils 0.1, Absolute Basophils 0 Assessment/Plan Assessment/Plan Clinically stable from a cardiac standpoint wihtout recurrenc of VT. Tolerating anticoagulation with INR slowly rising and heparin bridge, s/p IVC filter placement. Will follow PRN. Continue telemetry? Yes
[2017-12-28 13:46] LABS: PTT 96 SEC (25-37)
[2017-12-28 14:32] VITALS: BP 132/58
[2017-12-28 22:34] VITALS: BP 130/64
[2017-12-28 23:09] LABS: PTT 80 SEC (25-37)
[2017-12-29 06:38] VITALS: BP 150/60
[2017-12-29 08:44] LABS: ABSOLUTE BASOPHIL COUNT 0 /CUMM (0.0-0.2); ABSOLUTE EOSINOPHIL COUNT 0.3 /CUMM (0.0-0.7); ABSOLUTE GRANULOCYTE CT 3.7 /CUMM (1.4-6.5); ABSOLUTE LYMPH COUNT 1.3 /CUMM (1.2-3.4); ABSOLUTE MONOCYTE COUNT 0.5 /CUMM (0.10-0.60); BASOPHIL % 0.3 % (0.0-2.0); EOSINOPHIL % 4.7 % (0-5); HEMATOCRIT 29.5 % (42-52); MEAN CORPUSCULAR HGB CONC 32.9 G/DL (33.0-37.0); MEAN CORPUSCULAR VOLUME 88.1 FL (80.0-94.0); MEAN PLATELET VOLUME 8.5 FL (7.4-10.4); PLATELET COUNT 430 /CUMM (130-400); RBC DISTRIBUTION WIDTH 20.2 % (11.5-14.5); RED BLOOD CELL CT 3.35 /CUMM (4.70-6.10); WHITE BLOOD CELL COUNT 5.8 /CUMM (4.8-10.8)
--- NOTE | 2017-12-29 08:53 | PN- Housestaff ---
Jemma MURDOCK,Alec 12/29/17 0853: Subjective Follow-up For: Hypovolemic Shock/Retroperitoneal hemorrhage Acute hypoxic respiratory failure secondary to acute pulmonary embolism. Bilateral lower extremity DVT Nonsustained ventricular tachycardia. open right hemicolectomy for colorectal cancer. SMV thrombus Tele-Events Since Last Visit: Sinus rhythm HR 70s80s Subjective: Patient was seen and examined at bedside. He was resting comfortably. He had no acute events overnight. He states that he is feeling very well and is eager to be discharged. He is complaining of mild pruritus at his surgical site. He denies any chest pain, shortness of breath, nausea vomiting, fever, chills, lightheadedness, dizziness. Review of Systems Constitutional: Reports: see HPI. Objective Last 24 Hrs of Vital Signs/I&O Vital Signs Date Time Temp Pulse Resp B/P B/P Pulse O2 O2 Flow FiO2 Mean Ox Delivery Rate 12/29 0638 97.5 84 20 150/60 90 Nasal 0.5L Cannula 12/29 0000 Nasal 0.5L Cannula 12/28 2234 98.5 83 16 130/64 90 Nasal 1.0L Cannula 12/28 1600 94 Nasal 1.0L Cannula 12/28 1432 98.2 84 18 132/58 94 Nasal Cannula 12/28 1045 88 Room Air 12/28 1009 96 Nasal 1.0L Cannula 12/28 0928 95 Nasal 2.0L Cannula Intake & Output 12/29 1600 / 0800 05/ 0000 Intake Total 328 688 Output Total 1100 1250 Balance -772 -562 Intake, IV 208 208 Intake, Oral 120 480 Output, Urine 1100 1250 Patient 198 lb Weight Weight Bed scale Measurement Method Physical Exam General Appearance: Alert, Oriented X3, Cooperative, No Acute Distress Skin Temp/Moisture Exam: Warm/Dry Cardiovascular: Regular Rate, Normal S1, Normal S2 Lungs: Clear to Auscultation, Normal Air Movement Abdomen: small bullae around the surgical site, patient states that they have been there for a few days. Current Medications: Current Medications Sig/Thai Start time Last Medication Dose Route Stop Time Status Admin Acetaminophen 1,000 MG Q6P PRN 12/11 1730 AC 12/20 IV 0408 Escitalopram Oxalate 10 MG DAILY 12/12 0900 AC 12/29 PO 0840 Heparin Sodium 25,000 UNIT Q24H 12/26 0830 AC 12/28 (Porcine) IV 1749 Sodium Chloride 500 ML Melatonin 5 MG AT BEDTIME PRN 12/15 2044 AC 12/23 PO 234 Morphine Sulfate 2 MG Q4 HRS NEEDED PRN 12/21 1915 DC 12/22 IV 2006 Omeprazole 40 MG DAILY AC 12/27 0700 AC 12/29 PO 0618 Ondansetron HCl 4 MG Q6P PRN 12/11 1730 AC 12/15 IV 0728 Phenol 2 SPRAY Q2P PRN 12/14 2345 AC EXT Warfarin Sodium 5 MG COUMADIN 1700 ONE 12/28 1700 DC 12/28 PO 12/28 170 1749 Zolpidem Tartrate 10 MG AT BEDTIME 12/28 2099 AC 12/28 PO 215 Zolpidem Tartrate 5 MG AT BEDTIME 12/27 2100 DC 12/27 PO 205 Last 24 Hrs of Lab/Hakeem Results Last 24 Hrs of Labs/Mics: Laboratory Tests 12/29/17 0900: APTT 83 H 12/29/17 0640: PT 24.0 H, INR 2.18 H, CBC w Diff NO MAN DIFF REQ, RBC 3.35 L, MCV 88.1, MCH 29.0, MCHC 32.9 L, RDW 20.2 H, MPV 8.5, Gran % 64.0, Lymphocytes % 21.9, Monocytes % 9.1, Eosinophils % 4.7, Basophils % 0.3, Absolute Granulocytes 3.7, Absolute Lymphocytes 1.3, Absolute Monocytes 0.5, Absolute Eosinophils 0.3, Absolute Basophils 0 12/28/172105: APTT 80 H Assessment/Plan Assessment: 72 year old male s/p right hemicolectomy for colorectal cancer post operative course complicated by submassive PE and bilateral lower extremity DVT developed a retroperitoneal hemorrhage with acute blood anemia on anticoagulation now s/p IVC filter, post operative day 17, now stable and re-initiated therapeutic anticoagulation. Open right hemicolectomy for colorectal cancer: POD day 18 Tolerating regular diet Follow up surgical recommendations No complaints of pain Small bullae around the surgical site possibly secondary to contact allergy to tape Hypovolemic Shock/Retroperitoneal hemorrhage: Small drop in H/H today 9.6/29.5, on IV heparin, currently bridging to warfarin with therapeutic INR of 2.18, will decrease dose given today to 4 mg warfarin and recheck INR tomorrow STabilized in the ICU, required levophed for hypovolemic/hemorrhagic shock Hemodynamically stable Plan to DC tomorrow if stable overnight, with 1 dose of therapeutic Lovenox to complete the 5 day overlap of heparin to warfarin. Acute hypoxic respiratory failure secondary to acute pulmonary embolism, bilateral lower extremity DVT/SMV thrombus Submassive pulmonary embolism, although evidence of right heart strain on echocardiogram Currently weaning off of supplemental O2, patient is tolerating this well Restarting heparin gtt Daily CBC and INR 1.4 today Bridge to coumadin, Day 3, hemoglobin stable Coumadin 4mg today, monitor INR daily and adjust dose as necessary Nonsustained ventricular tachycardia: No subsuquent arrhythmias Replete electrolytes as need Continue telemetry monitoring for now, can likely be downgraded to an unmonitored floor Follow up cardiology recommendations Heart healthy diet DVT ppx-start IV heparin gtt and coumadin Full code Problem List: 1. Retroperitoneal hematoma 2. Multiple pulmonary emboli Pain Ratin Pain Location: none Pain Goal: Remain pain free Pain Plan: pain pathway Tomorrow's Labs & Rationales: cbc, bep INR Aryan Almeida MD 12/29/17 1034: Attending MD Review Statement Attending Statement Attending MD Statement: examined this patient, discuss w/resident/PA/DISCOUNT CLERK, agreed w/resident/PA/DISCOUNT CLERK, discussed with family, reviewed EMR data (avail), discussed with nursing, discussed with case mgmt, reviewed images, amended to note Attending Assessment/Plan: Aryan Sneed M.D. have examined this patient, reviewed available EMR data, personally reviewed images, discussed with resident/PA/DISCOUNT CLERK, discussed management plan with housestaff and nursing staff, discussed managment plan all of healthcare providers, discussed management plan with patient and/or family, agreed with resident/PA/DISCOUNT CLERK. The past history and parts of the chart have been autopopulated. Impression 72 year old man * multiple bilateral pulmonary emboli (submassive) and DVT * no further vtach * Stage 3C colon cancer s/p radical right hemicolectomy * right sided retroperitoneal hematoma Plan -fio2 to goal of spo2 >88% - assess o2 status prior to discharge -heparin/coumadin bridge, goal INR 2-3, monitor hemoglobin, at least 5 days of overlap -patient agreeable to lovenox injections, please involve case management to arrange visiting nurse for the duration of coumadin overlap -dc planning for Saturday -dose coumadin 4mg tonight, check INR in am -IVC filter in place -PT/oob/ambulation -provide patient with nutrition/dietary education in setting of coumadin use -1 dose of Ambien 10mg tonight, agreed with patient that he will not be discharged on Ambien -oncology f/u as outpt DC planning hopefully 24 hours
[2017-12-29 10:24] LABS: PTT 83 SEC (25-37)
[2017-12-29 15:27] VITALS: BP 138/68
[2017-12-29 22:23] VITALS: BP 134/52
[2017-12-29 23:19] LABS: PTT 80 SEC (25-37)
[2017-12-30 06:52] VITALS: BP 106/60
--- NOTE | 2017-12-30 07:15 | PN- Housestaff ---
See Addendum Subjective Follow-up For: Hypovolemic Shock/Retroperitoneal hemorrhage Acute hypoxic respiratory failure secondary to acute pulmonary embolism. Bilateral lower extremity DVT Nonsustained ventricular tachycardia. open right hemicolectomy for colorectal cancer. SMV thrombus Tele-Events Since Last Visit: sinus rhythm, no events Subjective: no new complaints, on Day 4 of heparin bridging to coumadin Review of Systems Constitutional: Reports: see HPI. Objective Last 24 Hrs of Vital Signs/I&O Vital Signs Date Time Temp Pulse Resp B/P B/P Pulse O2 O2 Flow FiO2 Mean Ox Delivery Rate 12/30 0652 98.9 60 18 106/60 94 Room Air / 2223 98.4 85 20 134/52 94 Room Air 12/29 1600 93 Room Air 12/29 1527 98.6 82 20 138/68 93 Room Air / 1157 95 Room Air Intake & Output 12/30 1600 12/30 0800 12/30 0000 Intake Total 385 515 Output Total 700 850 Balance -315 -335 Intake, IV 185 75 Intake, Oral 200 440 Output, Urine 700 850 Patient 88.961 kg Weight Physical Exam General Appearance: Alert, Oriented X3, Cooperative, No Acute Distress Cardiovascular: Regular Rate, Normal S1, Normal S2, No Murmurs Lungs: Clear to Auscultation, Normal Air Movement Abdomen: Normal Bowel Sounds, Soft, No Tenderness, No Masses, midline incision healing well Extremities: No Clubbing, No Cyanosis, No Edema, Normal Pulses Current Medications: Current Medications Sig/Thai Start time Last Medication Dose Route Stop Time Status Admin Acetaminophen 1,000 MG Q6P PRN 12/11 1730 AC 12/20 IV 0408 Escitalopram Oxalate 10 MG DAILY 12/12 09 AC 12/29 PO 0840 Heparin Sodium 25,000 UNIT Q24H / 0830 AC 12/29 (Porcine) IV 1453 Sodium Chloride 500 ML Melatonin 5 MG AT BEDTIME PRN 12/15 2044 AC 12/23 PO 2349 Omeprazole 40 MG DAILY AC 12/27 07 AC 12/30 PO 0644 Ondansetron HCl 4 MG Q6P PRN 12/11 1730 AC 12/15 IV 0728 Phenol 2 SPRAY Q2P PRN 12/14 2345 AC EXT Warfarin Sodium 4 MG COUMADIN 1700 12/29 1700 DC 12/29 PO 12/29 2359 1726 Zolpidem Tartrate 10 MG .Stem [facility] ONE 12/30 2119 DC PO 12/29 2120 Zolpidem Tartrate 10 MG AT BEDTIME 12/28 2100 DC 12/29 PO 12/30 0000 2220 Last 24 Hrs of Lab/Hakeem Results Last 24 Hrs of Labs/Mics: Laboratory Tests 12/30/17 0639: Sodium Pending, Potassium Pending, Chloride Pending, Carbon Dioxide Pending, Anion Gap Pending, BUN Pending, Creatinine Pending, BUN/Creatinine Ratio Pending , PT 32.9 H, INR 2.99 H, CBC w Diff Pending, WBC Pending, RBC Pending, Hgb Pending, Hct Pending, MCV Pending, MCH Pending, MCHC Pending, RDW Pending, Plt Count Pending, MPV Pending 12/29/17 2256: APTT 80 H 12/29/17 0900: APTT 83 H Assessment/Plan Assessment: 72 year old male s/p right hemicolectomy for colorectal cancer post operative course complicated by submassive PE and bilateral lower extremity DVT developed a retroperitoneal hemorrhage with acute blood anemia on anticoagulation now s/p IVC filter, post operative day 19, now stable and re-initiated therapeutic anticoagulation. Open right hemicolectomy for colorectal cancer: POD day 19 Tolerating regular diet Follow up surgical recommendations No complaints of pain Hypovolemic Shock/Retroperitoneal hemorrhage: Small drop in H/H today 9.6/29.5, on IV heparin, currently bridging to warfarin with therapeutic INR of 2.18, will decrease dose given today to 4 mg warfarin and recheck INR tomorrow Stabilized in the ICU, required levophed for hypovolemic/hemorrhagic shock Hemodynamically stable Acute hypoxic respiratory failure secondary to acute pulmonary embolism, bilateral lower extremity DVT/SMV thrombus Submassive pulmonary embolism, although evidence of right heart strain on echocardiogram Off supplemental oxygen Bridge to coumadin, Day 4, hemoglobin stable INR therapeutic, discharge on 2mg coumadin daily INR and CBC check in three days as an outpatient Nonsustained ventricular tachycardia: No subsuquent arrhythmias Replete electrolytes as need Heart healthy diet DVT ppx-start IV heparin gtt and coumadin Full code Problem List: 1. Retroperitoneal hematoma 2. Retroperitoneal bleeding 3. Multiple pulmonary emboli 4. Malignant neoplasm of cecum Pain Ratin Pain Location: n/a Pain Goal: Pain 4 or less Pain Plan: prn Tomorrow's Labs & Rationales: CBC, PT/INR if not discharged
[2017-12-30 08:12] LABS: PT 32.9 SEC (9.4-12.5)
[2017-12-30 08:13] LABS: ABSOLUTE BASOPHIL COUNT 0 /CUMM (0.0-0.2); ABSOLUTE EOSINOPHIL COUNT 0.3 /CUMM (0.0-0.7); ABSOLUTE GRANULOCYTE CT 3.8 /CUMM (1.4-6.5); ABSOLUTE LYMPH COUNT 1.2 /CUMM (1.2-3.4); ABSOLUTE MONOCYTE COUNT 0.6 /CUMM (0.10-0.60); BASOPHIL % 0.5 % (0.0-2.0); EOSINOPHIL % 4.5 % (0-5); GRANULOCYTE % 65.2 % (42.2-75.2); HEMATOCRIT 30.8 % (42-52); MEAN CORPUSCULAR HGB 28.8 PG (27.0-31.0); MEAN CORPUSCULAR HGB CONC 32.5 G/DL (33.0-37.0); MEAN CORPUSCULAR VOLUME 88.4 FL (80.0-94.0); MEAN PLATELET VOLUME 8.1 FL (7.4-10.4); PLATELET COUNT 460 /CUMM (130-400); RBC DISTRIBUTION WIDTH 20.4 % (11.5-14.5); RED BLOOD CELL CT 3.48 /CUMM (4.70-6.10); WHITE BLOOD CELL COUNT 5.8 /CUMM (4.8-10.8)
[2017-12-30] MEDS ORDERED: COUMADIN2 M1 PO ×2 (08:17→11:23)
[2017-12-30] MEDS ORDERED: LOVENOX120 MG/0.1 SC ×2 (08:20→11:23)
--- NOTE | 2017-12-30 08:25 | Discharge Summary ---
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 He was being managed by the surgical service until suddenly on post operative day 8, the patient had a rapid response called for tachycardia and hypoxia. Chest CTA demonstrated bilateral pulmonary emboli and ultrasound also demonstrated bilateral lower extremity DVTs. He had reportedly refused subcutaneous heparin administration several times. The patient was started on supplemental oxygen, an intravenous heparin infusion and transferred to the ICU. Cardiology was consulted. The patient had a mild troponin elevation, peaking at 0.26, consistent with a type II NSTEMI, and a brief episode of nonsustained ventricular tachycardia after the pulmonary embolism with new moderate pulmonary hypertension without regional wall motion abnormalities on echocardiography. On post operative day 10, the patient developed hypotension treated with fluid boluses and started on norepinephrine infusion and complained of new right sided back pain. CT imaging of the abdomen and pelvis was performed demonstrating a large right retroperitoneal hematoma. Anticoagulation was stopped. Hemoglobin dropped from 12 to 9 requiring three units of packed red blood cell transfusions and hemoglobin stable around 10 prior to discharge. The patient was stabilized hemodynamically and an IVC filter was placed the following day by interventional radiology. After IVC filter placement, the patient was monitored with serial CBCs for several days before reinitiation of anticoagulation with an intravenous heparin drip. After 24 hours of heparin therapy and CBC remaining stable, he was bridged to coumadin with INR levels therapeutic prior to discharge. The patient was discharged on 2mg of coumadin daily with a PT/INR and CBC ordered for two days after discharge on 01/01/18. He was tolerating a regular diet with bowel movements, ambulating, and off supplemental oxygen at the time of discharge. 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 He was instructed to follow up with Dr. Squires and Dr. Emily Hickman after discharge. He was instructed to follow up with Dr. Whitley for titration of his coumadin dose and monitoring of his PT/INR. Allergies: Coded Allergies: NO KNOWN ALLERGIES (10/25/17) Significant Procedures: Echocardiogram 12/19/17 CONCLUSIONS Mild concentric left ventricular hypertrophy. Normal left ventricular ejection fraction visually estimated at >65 Abnormal relaxation filling pattern of the left ventricle for age (stage 1 diastolic dysfunction). The left atrium is normal in size. Mild thickening/calcification of the mitral valve leaflets. No mitral regurgitation. Focal thickening of the aortic valve cusps. No aortic stenosis. Trace aortic regurgitation. Right ventricular systolic pressure estimated to be elevated at 45- 50 mmHg. The aortic root is upper normal limits in diameter. The mid ascending aorta is significantly dilated to 5.9 cm. Compared to echocardiogram of 11/25/2017 pulmonary artery pressure is now able to be measured and is moderately elevated. The mid descending aorta is significantly dilated on the current study and was not well visualized on the previous study. Jay Serrano M.D. Chest CTA 12/19/17 There are multiple bilateral pulmonary emboli. On the right there is embolus within the distal right main pulmonary artery extending into upper, middle, and lobar and segmental vessels. On the left there is embolus at the distal main pulmonary artery with some extension into upper and lower lobar vessels. Overall clot burden is greater on the right than the left. IMPRESSION: 1. Multiple bilateral pulmonary emboli. 2. Dilated ascending aorta to approximately 6.0 cm in diameter. 3. Small right pleural effusion. Bibasilar opacities favoring atelectasis. 4. Nasogastric tube tip at the gastroesophageal junction; advancement recommended. 5. Status post right hemicolectomy. Multiple fluid-filled loops of small bowel, which may reflect postoperative ileus. 6. Questionable focus of thrombus in the superior mesenteric vein, which alternatively could reflect artifact. 7. Enlarged prostate gland. Lower extremity venous ultrasound with doppler 12/19/17 IMPRESSION: 1. Study positive for deep vein thrombosis in bilateral lower extremities. 2. Nonocclusive thrombus in the right popliteal vein. 3. Nonocclusive thrombus in the left lower extremity extending from the mid femoral vein to the popliteal vein. 4.. Bilateral calf veins are not visualized. CT abdomen and pelvis 12/20/17 IMPRESSION: 1. Large hematoma with hematocrit level noted in the right-sided retroperitoneal region posterolateral to the psoas muscle along the abdominal wall. At its most consolidated portion of the hematoma measures 12 x 8.6 x 18 cm. Hematoma stranding and surrounding edema extend to the level of the diaphragm superiorly and into the pelvis more inferiorly. Stranding and small amount of ascites. 2. Status post right hemicolectomy with ileocolic anastomosis at the level of the transverse colon. Multiple fluid-filled and dilated small bowel loops noted in the upper to mid abdomen with zone of transition noted along the right lateral abdominal wall anterior to the hematoma. Although findings may be partly attributed to ileus, given the collapsed appearance of the large bowel loops differential possibility also includes partial obstruction. 3. Interval increase in size of multiple enlarged mesenteric lymph nodes. Larger lymph nodes measure greater than 1 cm in short axis. 4. Bilateral pleural effusions with adjacent compression atelectasis, right greater than left. Disposition Summary Disposition Principal Diagnosis: Invasive poorly differentiated adenocarcinoma of the colon Hypovolemic/hemorrhagic shock secondary to retroperitoneal hemorrhage Acute hypoxic respiratory failure secondary to acute bilateral pulmonary embolism Bilateral lower extremity DVT Nonsustained ventricular tachycardia Open right hemicolectomy for colorectal cancer Type II NSTEMI Additional Diagnosis: Colon cancer History of smoking Hypertension Discharge Disposition: home health services Discharge Instructions General Discharge Information Code Status: Full Code Patient's Diet: Heart healthy diet Patient's Activity: No limitations, as tolerated Follow-Up Instructions/Appts: Please follow up with your primary care physician, Dr. Squires for a post operative check, and Dr. Emily Hickman for your colon cancer and DVT. You can also follow up with Dr. Aryan Almeida. You will need to have blood work drawn in two days, , to check your PT/INR and CBC. You are starting a medication called coumadin and will need to use lovenox x 1 dose tomorrow 12/31/17. Medications at Discharge Discharge Medications: Continue taking these medications: Escitalopram Oxalate (Lexapro) 10 MG TABLET 1 Tablet ORAL DAILY Comments: Last Taken: 12/30/17 Time: 8:30 AM [IRON] (Unknown Strength) Unknown Dose ORAL THREE TIMES DAILY Comments: NOT GIVEN Start taking the following new medications: Enoxaparin Sodium (Lovenox) 120 MG/0.8 ML SYRINGE 1 Syringe Inject into fatty tissue DAILY Qty = 1 No Refills Instructions: USE ON 12/31/17. Comments: Last Taken: 12/30/17 Time: 10:30 AM Warfarin Sodium (Coumadin) 2 MG TABLET 1 Tablet ORAL DAILY Qty = 30 No Refills Instructions: GET CBC, PT/INR CHECKED ON 01/01/18 Comments: Last Taken: 12/30/17 Time: 10:30 AM Copies To: Venancio Hickman MD; Bull Squires MD; Aryan Almeida MD; Jay Whitley MD Attending Review Statement Documenting Attending: Iftikhar Coyle MD [IRON] (Unknown Strength) Unknown Dose ORAL THREE TIMES DAILY Comments: NOT GIVEN Start taking the following new medications: Enoxaparin Sodium (Lovenox) 120 MG/0.8 ML SYRINGE 1 Syringe Inject into fatty tissue DAILY Qty = 1 No Refills Instructions: USE ON 12/31/17. Comments: Last Taken: 12/30/17 Time: 10:30 AM Warfarin Sodium (Coumadin) 2 MG TABLET 1 Tablet ORAL DAILY Qty = 30 No Refills Instructions: GET CBC, PT/INR CHECKED ON 01/01/18 Comments: Last Taken: 12/30/17 Time: 10:30 AM Copies To: Fadi Hickman MD, MD, Leland J; Aryan Almeida MD; Jay Whitley MD Attending Review Statement Documenting Attending: Iftikhar Coyle MD Warfarin Sodium (Coumadin) 2 MG TABLET 1 Tablet ORAL DAILY Qty = 30 No Refills Instructions: GET CBC, PT/INR CHECKED ON 01/01/18 Comments: Last Taken: 12/30/17 Time: 10:30 AM Copies To: Fadi Hickman MD, MD, Leland J; Aryan Almeida MD; Jay Whitley MD Attending Review Statement Documenting Attending: Iftikhar Coyle MD Copies To: Fadi Hickman MD, MD, Leland J; Aryan Almeida MD; Jay Whitley MD Attending Review Statement Documenting Attending: Iftikhar Coyle MD
--- NOTE | 2017-12-30 09:52 | Patient Discharge Instructions ---
Discharge Instructions General Discharge Information You were seen/treated for: Colon cancer DVT/PE Retroperitoneal hemorrhage Special Instructions: Follow up with Dr. Squires post operatively in one week. Please follow up with Dr. Emily Hickman for DVT/PE. You need to have your INR and CBC checked in two days. You can also make a follow up appointment with Dr. Aryan Almeida. You will also need to take both coumadin and lovenox tomorrow, then coumadin only going forward. Acute Coronary Syndrome Inclusion Criteria At DC or during hospital stay patient has or had the following: ACS DIAGNOSIS No Discharge Core Measures Meds if any: Prescribed or Continued at Discharge Meds if any: NOT Prescribed or Continued at Discharge Congestive Heart Failure Inclusion Criteria At DC or during hospital stay patient has or had the following: CHF DIAGNOSIS No Discharge Core Measures Meds if any: Prescribed or Continued at Discharge Meds if any: NOT Prescribed or Continued at Discharge Cerebrovascular accident Inclusion Criteria At DC or during hospital stay patient has or had the following: CVA/TIA Diagnosis No Discharge Core Measures Meds if any: Prescribed or Continued at Discharge Meds if any: NOT Prescribed or Continued at Discharge Venous thromboembolism Inclusion Criteria VTE Diagnosis Yes VTE Type Pulmonary Embolism (+DVT) VTE Confirmed by (Test) CT CHEST ANGIOGRAM Discharge Core Measures - Per Current guidelines, there needs to be overlap - treatment for the first 5 days of Warfarin therapy. - If discharged on Warfarin prior to 5 days of - overlap therapy, the patient will need to be - assessed for post discharge needs including - *Post discharge parental anticoagulation - *Warfarin and/or parental anticoagulation education - *Follow up date to check INR post discharge At least 5 days overlap therapy as Inpatient Yes Meds if any: Prescribed or Continued at Discharge Warfarin Yes Overlap Therapy Yes Note: Overlap Therapy is Warfarin and Anticoagulant Meds if any: NOT Prescribed or Continued at Discharge
--- NOTE | 2017-12-30 10:42 | PN- Pulmonary ---
Subjective HPI/Critical Care Issues: pt seen and examined 94% on room air afebrile blisters on abdomen are stable no cp, no carlton, no n/v/d/c Objective Current Medications: Current Medications Sig/Thai Start time Last Medication Dose Route Stop Time Status Admin Acetaminophen 1,000 MG Q6P PRN 12/11 1730 AC 12/20 IV 0408 Enoxaparin Sodium 100 MG ONCE ONE 12/30 1000 DC 12/30 SC 12/30 1001 1024 Enoxaparin Sodium 40 MG ONCE ONE 12/30 1000 DC 12/30 SC 12/30 1001 1024 Escitalopram Oxalate 10 MG DAILY 12/12 0900 AC 12/30 PO 0834 Heparin Sodium 25,000 UNIT Q24H 12/26 0830 DC 12/29 (Porcine) IV 1453 Sodium Chloride 500 ML Melatonin 5 MG AT BEDTIME PRN 12/15 2045 AC 12/23 PO 2349 Omeprazole 40 MG DAILY AC 12/27 0700 AC 12/30 PO 0644 Ondansetron HCl 4 MG Q6P PRN 12/11 1730 AC 12/15 IV 0728 Phenol 2 SPRAY Q2P PRN 12/14 2345 AC EXT Warfarin Sodium 1 MG ONCE ONE 12/30 1100 AC 12/30 PO 12/30 1101 1024 Warfarin Sodium 4 MG COUMADIN 1700 12/29 1700 DC / PO 12/29 2359 1726 Zolpidem Tartrate 10 MG .STK-MED ONE 12/290 DC PO 12/29 2121 Zolpidem Tartrate 10 MG AT BEDTIME 12/28 2100 DC / PO 12/30 0000 2220 Vital Signs & I&O Last 24 Hrs of Vitals and I&O: Vital Signs Date Time Temp Pulse Resp B/P B/P Pulse O2 O2 Flow FiO2 Mean Ox Delivery Rate 12/30 0652 98.9 60 18 106/60 94 Room Air / 2223 98.4 85 20 134/52 94 Room Air 05/ 1600 93 Room Air 05/ 1527 98.6 82 20 138/68 93 Room Air 05/06 1157 95 Room Air Intake & Output / 1600 05/07 0800 05/ 0000 Intake Total 385 515 Output Total 700 850 Balance -315 -335 Intake, IV 185 75 Intake, Oral 200 440 Output, Urine 700 850 Patient 196 lb Weight Exam Other Physical Findings: gen awake and alert heent room air cvs s1, s2 lungs clear bilaterally, other than bibasilar rare rhonchi abd soft, surgical incision is stable, blisters are chronic Impression/Plan Impression/Plan Impression/Plan: Impression 72 year old man * multiple bilateral pulmonary emboli (submassive) and DVT * no further vtach * Stage 3C colon cancer s/p radical right hemicolectomy * resolved right sided retroperitoneal hematoma Plan -does not require home oxygen -heparin/lovenox bridge, goal INR 2-3 -okay to administer 1 syringe at a dose of 120 for Lovenox, check INR no later than Saturday, to f/u with PMD for coumadin management -IVC filter in place -dietary instructions provided -surgery and oncology f/u as outpt DC planning for today
[2018-01-29] MEDS ORDERED: IRON325 M3 PO ×2 (18:43)
[2018-01-29] MEDS ORDERED: ATIVAN0.5 M1 PO (18:43)
== END 2017-12-30 14:13 | disposition home health service (06) | DRG 329 ==
LOC: SDA 00:51 → CRI 00:51 → 2NB 00:51 → 1NO 00:51 → SDA 07:00 → ENRESERV 15:41 → ENTRNSPT 16:54 → 2NB 17:02 → EDTRNSPT 17:12 → CMPTRNSPT 17:25 → 1NO 12-19 04:41 → CRI 12-19 07:46 → ENTRNSPT 12-25 20:52 → 1NO 12-25 21:27 → CMPTRNSPT 12-25 21:34 → 1NO 12-25 23:01 → ENPENDDIS 12-30 12:15 → ENTRNSPT 12-30 14:03 → EDTRNSPTSTS 12-30 14:07 → EDTRNSPT 12-30 14:07 → CMPTRNSPT 12-30 14:13 → 1NO 12-30 14:13
PROVIDERS: Dermatology; Hospitalist; Internal Medicine; Internal Medicine Endocrinology, Diabetes & Metabolism; Internal Medicine Hematology & Oncology; Internal Medicine Interventional Cardiology; Nurse Practitioner; Physician Assistant Surgical; Preventive Medicine Public Health & General Preventive Medicine; Student in an Organized Health Care Education/Training Program; Surgery
PROC: 0DTF0ZZ Resection of Right Large Intestine, Open Approach (ICD-10-PCS; principal; 2017-12-11)
PROC: 3E0T3BZ Introduction of Anesthetic Agent into Peripheral Nerves and Plexi, Percutaneous Approach (ICD-10-PCS; 2017-12-11)
PROC: 06H03DZ Insertion of Intraluminal Device into Inferior Vena Cava, Percutaneous Approach (ICD-10-PCS; 2017-12-20)
PROC: 02HV33Z Insertion of Infusion Device into Superior Vena Cava, Percutaneous Approach (ICD-10-PCS; 2017-12-20)
PROC: 30233N1 Transfusion of Nonautologous Red Blood Cells into Peripheral Vein, Percutaneous Approach (ICD-10-PCS; 2017-12-20)
DX: C18.0 Malignant neoplasm of cecum (principal); J96.01 Acute respiratory failure with hypoxia; I26.99 Other pulmonary embolism without acute cor pulmonale; I21.A1 Myocardial infarction type 2; I81 Portal vein thrombosis; I47.2 Ventricular tachycardia; K66.1 Hemoperitoneum; I11.0 Hypertensive heart disease with heart failure; I50.30 Unspecified diastolic (congestive) heart failure; R57.1 Hypovolemic shock; N17.9 Acute kidney failure, unspecified; K56.7 Ileus, unspecified; T81.718A Complication of other artery following a procedure, not elsewhere classified, initial encounter; I82.433 Acute embolism and thrombosis of popliteal vein, bilateral; D62 Acute posthemorrhagic anemia; K91.89 Other postprocedural complications and disorders of digestive system; D50.9 Iron deficiency anemia, unspecified; I71.2 Thoracic aortic aneurysm, without rupture; Y83.2 Surgical operation with anastomosis, bypass or graft as the cause of abnormal reaction of the patient, or of later complication, without mention of misadventure at the time of the procedure; Y92.239 Unspecified place in hospital as the place of occurrence of the external cause; I25.10 Atherosclerotic heart disease of native coronary artery without angina pectoris; Z91.14 Patient's other noncompliance with medication regimen
CPT/HCPCS: 1NP; 2NBSP; CCU; 36415; 36592; 71045; 74021; 74177; 82436; 86920; 87086; 88309; 93005; 93010; 93306; 93970; 94799; 97110-GO; 97116-GO; 97161-GP; 97164-GP; 97530-GO; C1725; C1769; J0131; J0690; J1644; J1650; J2001; J2060; J2405; J2550; J3480; J7040; J7042; J7060; P9016; Q9967

== ENCOUNTER → 2018-01-31 | Day surgery (SDC) | payer OTHER ==
[~2018-01-31] VITALS: Ht 182.9 cm; Wt 85.7 kg
[~2018-01-31] MED LIST changes: +ATIVAN0.5 M1 PO; +COUMADIN2 M1 PO; +IRON325 M3 PO; +LOVENOX120 MG/0.1 SC
[2018-01-31 09:14] LABS: PT 11.1 SEC (9.4-12.5)
--- NOTE | 2018-01-31 14:07 | RADIOLOGY REPORT ---
EXAMINATION: XR PORTABLE CHEST CLINICAL INFORMATION: Status post left Port-A-Cath. COMPARISON: Chest x-ray dated 12/21/2017 TECHNIQUE: Portable frontal view of the chest was obtained. FINDINGS: Interval placement of left-sided Port-A-Cath. Left Port-A-Cath with subclavian access is noted. The tip is at approximately cavoatrial junction. No evidence of pneumothorax. Minor hazy atelectasis noted again in the left medial base. Mild prominence of the pulmonary and bronchial markings represents chronic change, left greater than right.. Visualized osseous structures are intact. IMPRESSION: Interval placement of left-sided Port-A-Cath. No acute pulmonary disease.
--- NOTE | 2018-01-31 14:12 | Operative Report ---
Operative/Inv Procedure Report Surgery Date: 01/31/18 Name of Procedure: Left axillary vein Port-A-Cath placement with ultrasound and fluoroscopic guidance Pre-Operative Diagnosis: Colon cancer Post-Operative Diagnosis: Same Estimated Blood Loss: scant Surgeon/Quality Associate: Shaw MURDOCK,Bull Pabon Anesthesia: local monitored anesthesi Implants: [employer] Operative/Procedure Note Note: Patient brought to the operating room and laid supine. His arm tucked and a roll placed behind the shoulder. His left chest and neck were then prepped and draped. He was sedated. Using ultrasound imaging the left axillary vein was visualized and percutaneously accessed after local anesthesia placed. A wire was placed on the right atrium. Confirmation with fluoroscopic imaging was performed. The left chest was then infiltrated further with local anesthesia an incision made over the wire. An inferiorly based pocket was created with blunt and cautery dissection. The port was placed into the pocket and the catheter measured under fluoroscopic imaging. It was trimmed to 26 cm. Using fluoroscopy the dilator was placed down into the SVC. The wire was removed and passed off the field. The catheter was placed through the peel-away sheath. Sheath was then removed. Final fluoroscopic images show the catheter in the atrial SVC junction. The catheter was aspirated and flushed with concentrated heparin. The port was anchored to the deep subcutaneous tissues tissues with 0 Vicryl suture. The skin was closed with 3-0 and 4-0 Vicryl. Steri-Strips and sterile dressing applied. Sponge and needle counts are correct. CC: Marylou MURDOCK,Venancio; Gutierrez MURDOCK,Jay Santos
--- NOTE | 2018-02-01 16:13 | RADIOLOGY REPORT ---
EXAMINATION:\H\ \N\XR CHEST CLINICAL INFORMATION: Port-A-Cath insertion. Left-sided access in OR. COMPARISON: Chest radiograph dated earlier on 01/31/2018. TECHNIQUE: Single intraoperative radiograph. FINDINGS: There is a single intraoperative radiograph with a coned-down view of the chest. A catheter is noted projecting over the upper mediastinum and coursing inferiorly into the expected region of the distal SVC. A surgical instrument projects over the right chest. IMPRESSION: Port-A-Cath insertion. Please see operative note for further details.
== END ==
LOC: STS 01-08 07:00
PROVIDERS: Surgery
DX: C18.9 Malignant neoplasm of colon, unspecified (principal); I10 Essential (primary) hypertension; Z86.711 Personal history of pulmonary embolism; Z79.01 Long term (current) use of anticoagulants
CPT/HCPCS: 36415; 71045; C1788; J0690; J1644; J2250; J3490